=== PATIENT | female | born 1975 | race Caucasian/White ===

== ENCOUNTER 2020-05-12 09:27 | Emergency (ER) | payer OTHER, SELFPAY ==
--- NOTE | ~2020-05-12 | XR_ITS ---
EXAMINATION: XR chest 2V 05/12/2020 10:17 INDICATION: Dry cough for 3 days PROCEDURE: 2 view chest COMPARISON: 11/13/2011 FINDINGS: The lungs are clear. The cardiomediastinal silhouette is within normal limits. There are no pleural effusions. There is no pneumothorax suspected. IMPRESSION: 1: NO ACUTE CARDIOPULMONARY DISEASE. Reviewed, dictated and finalized at location A. ER THREAD [facility]PO[facility]ER
[2020-05-12 09:40] VITALS: BP 134/70; PULSE 69; RESP 20; TEMP 36.4; O2SAT 100
--- NOTE | 2020-05-12 09:58 | ED.GENADULT ---
HPI - General Adult General Chief complaint: Upper Respiratory Infection Stated complaint: sinus infection Source: patient Mode of arrival: ambulatory Limitations: no limitations History of Present Illness HPI narrative: Patient presents for evaluation of upper respiratory symptoms for the last 3 days. She reports sore throat, headache, sinus pressure/drainage, nausea and nonproductive cough. She denies any fever, chills, vomiting. She has a history of IBS and states that she has chronic diarrhea, unchanged. No recent sick contacts. Denies any shortness of breath. She has not tested positive for Covid in the past. She does not smoke. She tried taking Tylenol with some improvement in her symptoms or after. Related Data Home Medications Medication Instructions Recorded Confirmed multivitamin 1 tablet PO DAILY 04/19/19 05/12/20 trazodone 50 mg tablet 50 mg PO .bedtime tablet 01/04/20 05/12/20 buspirone 5 mg tablet 5 mg PO TID tablet 02/08/20 05/12/20 lithium carbonate 300 mg capsule 350 mg PO BID cap 02/08/20 05/12/20 duloxetine 40 mg PO DAILY 05/12/20 05/12/20 hydrocortisone [Proctozone-HC] 2.5 ea TOPICAL BID 05/12/20 05/12/20 Allergies Allergy/AdvReac Type Severity Reaction Status Date / Time No Known Allergies Allergy Verified 05/12/20 09:58 Review of Systems Review of Systems: Narrative: CONSTITUTIONAL: Denies fever, chills, or sweats. EYES: Denies visual changes, redness, or discharge. ENT: Reports sinus congestion and drainage, sore throat CARDIOVASCULAR: Denies chest pain, palpitations, or edema. RESPIRATORY: Reports nonproductive cough. Denies dyspnea. GASTROINTESTINAL: Reports nausea and chronic diarrhea. Denies abdominal pain, vomiting. GENITOURINARY: Denies dysuria or hematuria. SKIN: Denies rash or itching. MUSCULOSKELETAL: Denies back pain, joint pain, or myalgia. NEUROLOGIC: Headache. Denies numbness, dizziness, or weakness. PSYCHIATRIC: Denies anxiety or depression. [facility] Past Medical History Medical History Bipolar disorder Current moderate episode of major depressive disorder without prior episode Generalized anxiety disorder Migraine, unspecified, not intractable, without status migrainosus Normal colonoscopy (~01/2020) Surgical History Surgical History History of abdominoplasty 2012 Family History Family History Mother Depression Family history of heart disease in male family member before age 55 Hypertension Sibling Depression Family history of migraine headaches Father Family history of alcoholism Other Family history of malignant neoplasm of male breast Social History Social History Smoking status: Never smoker Smoking end date: 05/03/03 Alcohol intake: never Exam Narrative: Exam Narrative: GENERAL: Well-appearing, well-nourished, and in no acute distress. HEAD: Normocephalic, atraumatic. EYES: PERRLA and EOMI. ENT: Nares clear, no rhinorrhea or epistaxis. Mucous membranes moist. Oropharynx without tonsillar hypertrophy exudate or other lesions. Bilateral TMs pearly borges nonbulging NECK: Supple. No adenopathy or masses. No carotid bruits or JVD CHEST: Clear to auscultation. No respiratory distress. No wheezes rales or rhonchi HEART: Regular rate and rhythm. No murmur heard. Normal peripheral pulses. ABDOMEN: Soft, nontender, nondistended, normal active bowel sounds. EXTREMITIES: Normal range of motion. No edema. SKIN: Warm, dry, no rash. NEURO: No focal deficits. Alert and oriented x3. PSYCH: Normal mood and affect. Course Course Emergency Course: This is a 44-year-old female who presents with 3-day history of upper respiratory symptoms. Her vital signs are stable upon arrival and she does not appear to have any syste
== END 2020-05-12 10:45 | disposition home or self-care (01) ==
PROVIDERS: Emergency Provider Nurse Practitioner
DX: B34.9 Viral infection, unspecified (principal); Z20.828 Contact with and (suspected) exposure to other viral communicable diseases; F31.9 Bipolar disorder, unspecified
CPT/HCPCS: 71046; 87081; 87426; 87804; 87880; 99213; C9803; G0463

== ENCOUNTER 2020-07-18 13:13 | Outpatient (CLI) | payer OTHER, SELFPAY ==
--- NOTE | ~2020-07-18 | US_ITS ---
EXAMINATION: US pelvic complete w TV EXAM DATE: 07/18/2020 14:03 INDICATION: Abnormal uterine bleeding. TECHNIQUE: Pelvic transabdominal and transvaginal sonogram was performed. There are multiple graysca le and Doppler images available for interpretation. Comparison is made to prior examination from 02/01. FINDINGS: Uterus measures 10.8 x 10.7 x 10.0 cm, with several fibroids measuring up to 7 cm. Dimensi ons have increased compared to previous exam. Endometrial stripe measures 15 mm, upper limits of norm al. There is no free pelvic fluid. Right adnexa: The ovary measures 3.1 x 1.6 x 1.5 cm and is morphologically normal. Ovarian vascular f low confirmed. Left adnexa: The ovary is not identified. There is no adnexal mass. IMPRESSION: Interval increase in size of fibroid uterus compared to 2017. Reviewed, dictated and finalized at location A.
== END 2020-07-18 13:14 | disposition home or self-care (01) ==
LOC: ANHIMG 13:15
PROVIDERS: PCP Family Medicine; Visit Provider Obstetrics & Gynecology
DX: N93.8 Other specified abnormal uterine and vaginal bleeding (principal)
CPT/HCPCS: 76830; 76856

== ENCOUNTER → 2020-08-27 13:39 | Outpatient (CLI) | payer OTHER, SELFPAY ==
--- NOTE | ~2020-08-27 | MM_ITS ---
EXAMINATION: MM screening jordan BI w flavia HISTORY: Screening mammogram TECHNIQUE: Craniocaudal and mediolateral oblique 3-D tomosynthesis images were obtained and synthetic 2-D images were generated. CAD analysis was submitted and interpreted. COMPARISON: 02/25/2018, 06/14/2007 bilateral digital screening mammogram examinations BREAST PARENCHYMAL COMPOSITION: The breasts are extremely dense, which lowers the sensitivity of mamm ography. FINDINGS: Biopsy marker in the subareolar area of the right breast. History of prior benign right fly ast biopsy. Stable fibroglandular asymmetry. Occasional bilateral benign calcifications. At least 4 new closely associated punctate microcalcifications are noted in the posterior central lef t breast on MLO view. Diagnostic left mammogram with magnification views is recommended for further e valuation. Otherwise there is no evidence of suspicious mass, calcification, or architectural distortion to sugg est malignancy in either breast. There has been no suspicious interval change. IMPRESSION: 1. New left microcalcifications 2. Diagnostic left mammogram is recommended BI-RADS Category 0: Incomplete: Needs additional imaging evaluation. Reviewed, dictated and finalized at location A.
== END ==
PROVIDERS: Visit Provider Obstetrics & Gynecology
DX: Z12.31 Encounter for screening mammogram for malignant neoplasm of breast (principal); R92.8 Other abnormal and inconclusive findings on diagnostic imaging of breast
CPT/HCPCS: 77063; 77067

== ENCOUNTER 2020-08-29 08:02 | Outpatient (CLI) | payer OTHER, SELFPAY | END 2020-08-29 08:03 | disposition home or self-care (01) | LOC: ANHSURGERY 08:04 | PROVIDERS: Visit Provider Obstetrics & Gynecology | DX: D64.9 Anemia, unspecified (principal) | CPT/HCPCS: 36415; 86850; 86900; 86901 ==

== ENCOUNTER → 2020-08-30 02:25 | Outpatient (CLI) | payer OTHER, SELFPAY ==
[2020-08-30 19:11] LABS: SARS-CoV-2 RNA PCR Negative
== END ==
PROVIDERS: Visit Provider Obstetrics & Gynecology
DX: Z01.812 Encounter for preprocedural laboratory examination (principal); Z20.822 Contact with and (suspected) exposure to COVID-19
CPT/HCPCS: C9803; U0003; U0005

== ENCOUNTER 2020-09-02 09:19 | Inpatient (IN) | payer OTHER, SELFPAY ==
[2020-08-20 11:04] VITALS: BMI 20.1
--- NOTE | 2020-09-01 12:14 | WPDANESEPP ---
Anes - Eval Pre Procedure Procedure: Operation Date: 09/02/20 07:30 Proposed Procedures p Total Abdominal Hysterectomy - Eliot Tucker MD Date/Time: 09/01/20 12:14 Pre Op Diagnosis: fibroids Patient Data Age: 45 Gender: F Height: 1.65 m Weight: 55 kg Allergies Allergy/AdvReac Type Severity Reaction Status Date / Time No Known Allergies Allergy Verified 08/20/20 11:03 Home Medications Medication Instructions Recorded Confirmed Type multivitamin 1 tablet PO DAILY 04/19/19 08/20/20 History omeprazole 20 mg capsule,delayed 20 mg PO DAILY PRN #30 cap 07/12/19 08/20/20 Rx release trazodone 50 mg tablet 50 mg PO .bedtime tablet 01/04/20 08/20/20 History buspirone 5 mg tablet 5 mg PO TID tablet 02/08/20 08/20/20 History lithium carbonate 300 mg capsule 300 mg PO BID cap 02/08/20 08/20/20 History duloxetine 40 mg PO HS 05/12/20 08/20/20 History fluticasone propionate [Flonase 1 spray INTRANASAL BID #15.8 ml 05/12/20 08/20/20 Rx Allergy Relief] hydrocortisone [Proctozone-HC] 2.5 ea TOPICAL BID PRN 05/12/20 08/20/20 History erythromycin 50 mg PO HS 08/20/20 08/20/20 History [id number] sodium 1 tablet PO DAILY 08/20/20 08/20/20 History [Ferralet 90] Patient hx anesthesia problems: none Family hx anesthesia problems: none PMFSH Past Medical History Medical History Asthma Bipolar disorder Cough Current moderate episode of major depressive disorder without prior episode Generalized anxiety disorder GERD (gastroesophageal reflux disease) Migraine, unspecified, not intractable, without status migrainosus Normal colonoscopy (~01/2020) PTSD (post-traumatic stress disorder) Surgical History Surgical History History of abdominoplasty 2012 Family History Family History Mother Depression Family history of heart disease in male family member before age 55 Hypertension Sibling Depression Family history of migraine headaches Father Family history of alcoholism Other Family history of malignant neoplasm of male breast Social History Social History Smoking packs per day: 1 Smoking cigarettes per day: 20.0 Years smoked: 10 Smoking pack-years: 10.00 Smoking status: Former smoker Tobacco type: cigarettes Smoking end date: 05/03/03 Spiritual care concerns: No Exam Day of Procedure 09/01/20 12:14
--- NOTE | 2020-09-01 17:16 | PM.IMHP ---
H&P: HPI History of Present Illness Date/Time: 09/01/20 17:16 Patient is a 45 y/o multiparous patient that presented to the office with complaints of heavy and abnormal bleeding and pain. Patient reports pain and pressure has increased over the years. Chief Complaint: abnormal bleeding and pain Review of Systems Constitutional: Constitutional: Reports fatigue PMFSH Past Medical History Medical History Asthma Bipolar disorder Cough Current moderate episode of major depressive disorder without prior episode Fibroids Generalized anxiety disorder GERD (gastroesophageal reflux disease) Migraine, unspecified, not intractable, without status migrainosus Normal colonoscopy (~01/2020) PTSD (post-traumatic stress disorder) Surgical History Surgical History (Updated 09/01/20 @ 17:25 by Eliot Tucker MD) History of abdominoplasty 2013 History of suburethral sling procedure Family History Family History Mother Depression Family history of heart disease in male family member before age 55 Hypertension Sibling Depression Family history of migraine headaches Father Family history of alcoholism Other Family history of malignant neoplasm of male breast Social History Social History Smoking packs per day: 1 Smoking cigarettes per day: 20.0 Years smoked: 10 Smoking pack-years: 10.00 Smoking status: Former smoker Tobacco type: cigarettes Smoking end date: 05/03/03 Living arrangements: with family Spiritual care concerns: No Meds Home Medications and Allergies Home Medications Medication Instructions Recorded Confirmed Type multivitamin 1 tablet PO DAILY 04/19/19 08/20/20 History omeprazole 20 mg capsule,delayed 20 mg PO DAILY PRN #30 cap 07/12/19 08/20/20 Rx release trazodone 50 mg tablet 50 mg PO .bedtime tablet 01/04/20 08/20/20 History buspirone 5 mg tablet 5 mg PO TID tablet 02/08/20 08/20/20 History lithium carbonate 300 mg capsule 300 mg PO BID cap 02/08/20 08/20/20 History duloxetine 40 mg PO HS 05/12/20 08/20/20 History fluticasone propionate [Flonase 1 spray INTRANASAL BID #15.8 ml 05/12/20 08/20/20 Rx Allergy Relief] hydrocortisone [Proctozone-HC] 2.5 ea TOPICAL BID PRN 05/12/20 08/20/20 History erythromycin 50 mg PO HS 08/20/20 08/20/20 History [id number] sodium 1 tablet PO DAILY 08/20/20 08/20/20 History [Ferralet 90] Allergies Allergy/AdvReac Type Severity Reaction Status Date / Time No Known Allergies Allergy Verified 08/20/20 11:03 Exam Const: General: cooperative Nutritional Appearance: well nourished Cardio: Rate: regular rate Rhythm: regular rhythm GI: GI Palp: Yes Soft to palpation : External Female Exam: normal external appearance Speculum Exam - Vagina: normal appearance of the vagina Bimanual exam- vagina & uterus: enlarged Bimanual Exam- Adnexa, other: normal adnexae Assessment and Plan Assessment and plan (1) Fibroids: Code(s): D21.9 - Benign neoplasm of connective and other soft tissue, unspecified Status: Acute Assessment and Plan: Patient scheduled for a Total abdominal hysterectomy. Risk and benefits reviewed with patient in detail.
[2020-09-02] VITALS (15 sets, daily range): BP systolic 98–124; BP diastolic 47–80; PULSE 52–89; RESP 10–18; TEMP 36.2–37.2; O2SAT 96–100
[2020-09-02] MEDS: LACTATED RINGERS 1,000 ML 30 ML IV CONT ×2 (06:45→09:33)
[2020-09-02] MEDS: ACETAMINOPHEN 500 MG TABLET 1000 MG PO (06:51)
[2020-09-02] MEDS: KETOROLAC 15 MG/ML VIAL (*BKC) IV PUSH (06:52)
[2020-09-02] MEDS: SCOPOLAMINE 1.5 MG PATCH TRANSDERM (07:16)
--- NOTE | 2020-09-02 07:27 | WPDHPUPDATE1 ---
History and Physical Update Update Date/Time: 09/02/20 07:27 History and Physical has been reviewed, including an updated exam of the patient. There are NO changes in the patient's condition. Risks, benefits, and alternatives have been discussed and questions answered. Patient agrees to proceed with procedure.
[2020-09-02] MEDS: ceFAZolin 2 GM/D5W 50 ML 2 GM/50 ML BAG IVPB (07:32)
--- NOTE | 2020-09-02 09:42 | PM.PROC ---
Procedure Note - Detailed Date of procedure: 09/02/20 Pre-op diagnosis: fibroids Post-op diagnosis: same Procedure performed: ELEUTERIO Description of procedure: The patient was taken to the operating room and placed in the dorsal supine position under general anesthesia. She was prepped and draped in the usual sterile fashion. Pfannenstiel skin incision was made with a scalpel and carried down to the underlying layer of fascia. Fascia was nicked in the midline and extended laterally using Gibbs scissors. [place] was used to tent the fascia which was then dissected off with sharp dissection due to adhesions. The rectus muscles are in the midline and the peritoneum tented. The peritoneum was entered during this process. The incision is extended with blunt traction. The bowel was packed away using moist laparotomy sponges and the Balfor retractor was placed. The bladder blade was attached. The tube is grasped on the cornea with large Peon and and delivered up into the incision. The round ligaments are doubly ligated transected with Gyrus and the anterior leaf of the broad ligament incised meeting in the midline. The tubes are grasped with a [place] on the left side the utero-ovarian ligament is isolated by creating a window in the posterior leaf of the broad ligament. The pedicle is clamped incorporating the tube in the portion being excised. The pedicle was transected and ligated with Gyrus The identical procedure is performed on the other side. The uterine vessels are skeletonized, clamped, transected, and ligated with GYRUS. The cardinal and uterosacral ligaments are serially clamped, transected, and suture ligated with 0 Vicryl. The uterosacral ligaments are tagged for future use. On entering the left portion of the right uterosacral the vaginal cuff is entered. The specimen is amputated using Tiffany scissors. The vaginal cuff is grasped with Nadia clamps. The vaginal cuff was closed using 0 Vicryl in a running locked fashion incorporating each angle to the ipsilateral uterosacral ligaments. The pelvis is irrigated and pedicles are inspected and noted to be hemostatic. The bladder flap examined for hemostasis. The tags are cut out. The lap sponges and retractor are removed. The fascia is closed using 0 Vicryl in a running fashion. Subcutaneous tissues are irrigated and made hemostatic using Bovie cautery. Subcutaneous tissue was approximated with plain gut suture interrupted. Skin is closed using 4 0 Vicryl in a subcuticular fashion and pressure dressing was placed. Patient is awakened from anesthesia and taken to recovery in stable condition. Sponge, needle, and instrument counts are correct per the OR staff. Anesthesia: GETA Surgeon: Eliot Tucker MD Estimated blood loss (mL): 100 Drains: No Packing: No Pathology: yes Complications: None Condition: stable Findings: fibroid uterus
[2020-09-02] MEDS: fentaNYL CITRATE INJ (*CRX) 100 MCG/2 ML VIAL 25 MCG IV PUSH ×3 (09:51→10:10)
[2020-09-02] MEDS: diphenhydrAMINE HCl INJ 50 MG/ML VIAL 25 MG IV PUSH (10:21)
--- NOTE | 2020-09-02 10:36 | SUR.PHASEI ---
1030 sbar faxed floor notified
[2020-09-02] MEDS: DEXTROSE 5%/LACTATED RINGERS 1,000 ML 125 ML IV CONT ×2 (11:50→20:36)
[2020-09-02] MEDS: KETOROLAC 30 MG/ML VIAL (*BKC) IV PUSH ×2 (11:50→20:37)
[2020-09-02] MEDS: ONDANSETRON INJ 4 MG/2 ML VIAL IV PUSH ×2 (11:52→20:33)
[2020-09-02] MEDS: MORPHINE SULFATE (*CRX) 4 MG/ML INJ IV PUSH (12:03)
--- NOTE | 2020-09-02 13:00 | PC.NURSE ---
Dr. Tucker notified of inadequate pain control, orders received to start [employer].
[2020-09-02] MEDS: MORPHINE SULFATE PCA (*CRX) 30 MG/30 ML SYR IV CONT (15:16)
[2020-09-02] MEDS: FLUTICASONE PROPIONATE 0.05% NA SPR 16 GM BTL (*BKC) 1 SPRAY NASAL (22:51)
[2020-09-02] MEDS: traZODone HCL 50 MG TABLET PO (22:52)
[2020-09-02] MEDS: busPIRone HCL 5 MG TABLET PO (22:52)
[2020-09-02] MEDS: diphenhydrAMINE HCl INJ 50 MG/ML VIAL IV PUSH (22:53)
[2020-09-02] MEDS: LITHIUM CARBONATE 300 MG CAPSULE PO (22:53)
[2020-09-03 00:04] VITALS: RESP 14; O2SAT 100
[2020-09-03] MEDS: MORPHINE SULFATE PCA (*CRX) 30 MG/30 ML SYR IV CONT (00:04)
[2020-09-03] MEDS: KETOROLAC 30 MG/ML VIAL (*BKC) IV PUSH ×2 (04:49→11:36)
[2020-09-03] MEDS: ONDANSETRON INJ 4 MG/2 ML VIAL IV PUSH ×2 (04:49→11:36)
[2020-09-03 05:00] VITALS: BP 104/63; PULSE 90; RESP 15; TEMP 38.1; O2SAT 99
[2020-09-03] MEDS: HYDROcodone/acetaminophen (*CRX) 5-325 MG TABLET 1 TAB PO ×4 (05:14→21:15)
[2020-09-03 05:30] LABS: Basophils Percent Auto 0.3 % (0.2-1.2); Eosinophils Percent Auto 0.3 % (0-4.4); Hematocrit 36.9 % (37.0-47.0); Hemoglobin 11.1 g/dL (12.0-15.0); Immature Granulocyte Absolute 0.04 K/mm3 (0.00-0.031); Immature Granulocyte Percent A 0.5 % (0-0.5); Lymphocytes Absolute Auto 0.82 K/mm3 (0.9-3.2); Lymphocytes Percent Auto 10.4 % (18.3-44.2); Mean Corpuscular HGB Conc 30.1 g/dl (32-36); Mean Corpuscular Hemoglobin 30.7 pg (26-34); Mean Corpuscular Volume 101.9 fl (80-100); Mean Platelet Volume 9.7 fl (7.4-10.4); Monocytes Absolute Auto 0.3 K/mm3 (0.1-0.6); Monocytes Percent Auto 3.8 % (2.6-8.5); Neutrophils Absolute Auto 6.7 K/mm3 (1.3-6.7); Neutrophils Percent Auto 84.7 % (45.5-73.1); Platelet Count Result 200 k/mm3 (150-375); Red Blood Count 3.62 M/mm3 (4.2-5.4); Red Cell Distribution Width 12.9 % (11.5-14.5); White Blood Count 7.9 K/mm3 (4.5-10.0)
[2020-09-03 05:48] LABS: Anion Gap 2 mmol/L (8-16); Blood Urea Nitrogen 13 mg/dL (7-17); Calcium 9.4 mg/dL (8.4-10.2); Carbon Dioxide 33 mmol/L (22-30); Chloride 103 mmol/L (98-107); Estimated CRCL calculation 48 ml/min; Estimated Glomerular Filt Rate 49; Glucose 106 mg/dL (65-105); Potassium 3.5 mmol/L (3.4-5.0); Sodium 138 mmol/L (137-145)
--- NOTE | 2020-09-03 07:32 | WPDANESPN ---
Anes - Prog Note Post-Op Date/Time: 09/03/20 07:32 Cardiovascular status: normal Respiratory status: normal Airway patency: baseline Mental status: baseline Post-Op hydration status: normal Vital Signs: Last Vital Signs Temp 38.1 C H 09/03/20 05:00 Pulse 90 09/03/20 05:00 Resp 15 09/03/20 05:00 BP 104/63 09/03/20 05:00 Pulse Ox 99 09/03/20 05:00 Pain Score (VAS): no complaints I/O: Intake & Output 09/02/20 09/02/20 09/03/20 15:59 23:59 07:59 Intake Total 650 1006.9 1328.3 Output Total 80 600 550 Balance 570 406.9 778.3 Laboratory Tests 09/03/20 05:12 09/03/20 05:12 09/03/20 09/03/20 05:12 05:12 WBC 7.9 RBC 3.62 L Hgb 11.1 L Hct 36.9 L MCV 101.9 H MCH 30.7 MCHC 30.1 L RDW 12.9 Plt Count 200 MPV 9.7 Immature Gran % (Auto) 0.5 Neut % (Auto) 84.7 H Lymph % (Auto) 10.4 L [place] % (Auto) 3.8 Eos % (Auto) 0.3 Baso % (Auto) 0.3 Lymph # (Auto) 0.82 L [place] # (Auto) 0.3 Eos # (Auto) 0.0 Baso # (Auto) 0.0 Abs Immat Gran (auto) 0.04 H Absolute Neuts (auto) 6.7 Absolute Nucleated RBC 0.0 Nucleated RBC % 0.0 Sodium 138 Potassium 3.5 Chloride 103 Carbon Dioxide 33 H Anion Gap 2 L BUN 13 Creatinine 1.20 H Estim Creat Clear Calc 48 Estimated GFR 49 L Glucose 106 H Calcium 9.4 Post-procedural complaints: none Patient Feedback: Patient satisfied with anesthetic care.
[2020-09-03 08:00] VITALS: BP 112/61; PULSE 74; RESP 18; TEMP 36.9; O2SAT 100
[2020-09-03] MEDS: SIMETHICONE 80 MG TAB.CHEW PO ×4 (09:07→17:28)
[2020-09-03] MEDS: LITHIUM CARBONATE 300 MG CAPSULE PO ×2 (09:08→17:27)
[2020-09-03] MEDS: busPIRone HCL 5 MG TABLET PO ×2 (09:08→13:30)
[2020-09-03] MEDS: MULTIVITAMINS THERAPEUTIC TAB (*BKC) 1 TABLET PO (09:08)
[2020-09-03] MEDS: PANTOPRAZOLE 40 MG TABLET PO (09:09)
[2020-09-03 16:00] VITALS: BP 110/70; PULSE 70; RESP 18; TEMP 36.7; O2SAT 100
[2020-09-03] MEDS: IBUPROFEN 600 MG TABLET PO (17:27)
[2020-09-03 21:10] VITALS: BP 110/69; PULSE 62; RESP 16; TEMP 36.7
[2020-09-03] MEDS: traZODone HCL 50 MG TABLET PO (21:15)
[2020-09-03] MEDS: SENNA/DOCUSATE SODIUM TABLET 2 TAB PO (21:15)
[2020-09-03] MEDS: FLUTICASONE PROPIONATE 0.05% NA SPR 16 GM BTL (*BKC) 1 SPRAY NASAL (21:15)
[2020-09-04] MEDS: IBUPROFEN 600 MG TABLET PO (01:30)
[2020-09-04] MEDS: HYDROcodone/acetaminophen (*CRX) 5-325 MG TABLET 1 TAB PO ×2 (01:30→06:22)
[2020-09-04 06:30] VITALS: BP 102/57; PULSE 57; RESP 18; TEMP 36.6
[2020-09-04] MEDS: LITHIUM CARBONATE 300 MG CAPSULE PO (08:03)
[2020-09-04] MEDS: busPIRone HCL 5 MG TABLET PO (08:03)
[2020-09-04] MEDS: MULTIVITAMINS THERAPEUTIC TAB (*BKC) 1 TABLET PO (08:03)
[2020-09-04] MEDS: FLUTICASONE PROPIONATE 0.05% NA SPR 16 GM BTL (*BKC) 1 SPRAY NASAL (08:03)
--- NOTE | 2020-09-09 08:30 | PM.DS ---
DS: Admitting Diagnosis Admitting Diagnosis Admitting Diagnosis: fibroids, pelvic pain DS: Discharge Diagnosis Discharge Diagnosis (1) Fibroids: Code(s): D21.9 - Benign neoplasm of connective and other soft tissue, unspecified Status: Acute Assessment and Plan: s/p ELEUTERIO (2) Pelvic pain: Code(s): R10.2 - Pelvic and perineal pain Status: Acute DS: Summary Hospital Course Hospital Course: Patient is a 45 y/o multiparous patient that presented to the office with complaints of heavy and abnormal bleeding and pain. Patient reports pain and pressure has increased over the years. Patient underwent a ELEUTERIO without complications was discharged home on postoperative day 2 with follow up in 1 week from surgery. Patient recieved script for [place] 5/325 one pill every 4 hours as needed for pain. Chief Complaint: fibroids and pain Time Spent with Patient Time attestation: Total time spent providing and/or coordinating discharge services: Exam Narrative: Exam Narrative: inc c/d/i adbomen soft NT DS: Data Data Completed and Pending Completed studies during hospitalization: Pending at discharge 09/02/20 09:02 Surgical [PTH] Routine Discharge Plan Discharge Attending physician on discharge: Eliot Tucker Discharging Clinician: Eliot Tucker Patient Disposition: Home, Self-Care Activity: may shower, may drive after 2 weeks and pelvic rest Diet: regular Patient Instructions: Hysterectomy (DC) Stand Alone Forms: General Discharge Information Follow-up/Referrals: Eliot Tucker MD [Physician] - Call for Appointment Discharge Medications: New hydrocodone-acetaminophen 5-325 mg Tablet 1 tablet PO Q3H PRN (Reason: Pain Rated 5 Or Less) Qty: 30 RF: 0 Continued hydrocortisone [Proctozone-HC] 2.5 % cream with perineal applicator 2.5 ea topical BID PRN (Reason: Pain) RF: 0 duloxetine 40 mg Capsule,Delayed Release(Dr/Ec) 40 mg PO HS RF: 0 fluticasone propionate [Flonase Allergy Relief] 50 mcg/actuation spray,suspension 1 spray intranasal BID Qty: 15.8 RF: 0 omeprazole 20 mg capsule,delayed release(DR/EC) 20 mg PO DAILY PRN (Reason: gerd) Qty: 30 RF: 0 trazodone 50 mg tablet 50 mg PO .bedtime RF: 0 buspirone 5 mg tablet 5 mg PO TID RF: 0 lithium carbonate 300 mg capsule 300 mg PO BID RF: 0 multivitamin Tablet 1 tablet PO DAILY RF: 0 [id number] sodium [id number] ik-gh-[id number]-mg-mg Tablet 1 tablet PO DAILY RF: 0 erythromycin 250 mg Tablet 50 mg PO HS RF: 0 Date of admission: 09/02/20 09:19 Primary Care Provider: UNKNOWN,DOCTOR Admitting Provider: Eliot Tucker Attending physician on admission: Eliot Tucker Condition: Stable
== END 2020-09-04 09:10 | disposition home or self-care (01) | DRG 743 ==
LOC: ANHOB2 10:53
PROVIDERS: Admitting Provider Obstetrics & Gynecology; Visit Provider Obstetrics & Gynecology
PROC: 0UT94ZZ Resection of Uterus, Percutaneous Endoscopic Approach (ICD-10-PCS; principal; 2020-09-02 07:30)
DX: D25.9 Leiomyoma of uterus, unspecified (principal); N93.9 Abnormal uterine and vaginal bleeding, unspecified; Z87.891 Personal history of nicotine dependence
CPT/HCPCS: 36415; 80048; 85025; 88307; A9270; J0690; J1100; J1170; J1200; J1885; J2250; J2270; J2405; J2704; J2710; J3010; J7120; J7121

== ENCOUNTER 2020-09-27 12:32 | Outpatient (CLI) | payer OTHER, SELFPAY ==
--- NOTE | ~2020-09-27 | MM_ITS ---
EXAMINATION: MM diagnostic mammo unilat LT HISTORY: Microcalcifications on screening mammogram of 08/20 TECHNIQUE: Additional 3-D tomosynthesis images of the left breast were performed and synthetic 2-D im ages were generated. Magnification views. CAD analysis was submitted and interpreted. COMPARISON: 08/27/2020 bilateral digital screening mammogram FINDINGS: Occasional benign microcalcifications are noted. No suspicious calcifications are evident. IMPRESSION: 1. No mammographic evidence of malignancy 2. Routine annual mammographic screening is recommended BI-RADS Category 2: Benign finding(s). Reviewed, dictated and finalized at location A.
== END 2020-09-27 12:33 | disposition home or self-care (01) ==
LOC: ANHIMG 12:33
PROVIDERS: PCP Family Medicine; Visit Provider Obstetrics & Gynecology
DX: R92.8 Other abnormal and inconclusive findings on diagnostic imaging of breast (principal)
CPT/HCPCS: 77065

== ENCOUNTER → 2020-11-18 08:37 | Outpatient (CLI) | payer OTHER, SELFPAY ==
--- NOTE | ~2020-11-18 | CT_ITS ---
EXAMINATION: CT soft tissue neck w con EXAM DATE: 11/18/2020 09:01 INDICATION: E04.9 - Nontoxic goiter, unspecified . Enlarged parotid glands. TECHNIQUE: Spiral CT of the neck was performed following intravenous injection of 75 mL Omnipaque 350 . Axial, coronal and sagittal images were reviewed. The dose-length product (DLP) for this examinat ion was 328.19 mGy-cm. The exposure was tailored according to patient size (auto mA exposure control ), and iterative reconstruction (ASIR) was used as additional dose reduction technique. There is no prior study for comparison. FINDINGS: The thyroid gland is unremarkable. The submandibular and parotid glands are symmetric. There is no cervical lymphadenopathy. There are no masses identified. The superior mediastinum is unremarkable. The airway is unremarkable. Parapharyngeal and pre-glottic fat planes are preserve d. The opacified vasculature is patent. The orbits are unremarkable. Visualized sinuses and mas toid air cells are well aerated. Lung apices are clear. There is mild cervical facet arthropathy. IMPRESSION: Unremarkable CT soft tissue neck w con exam. Reviewed, dictated and finalized at location A.
== END ==
PROVIDERS: PCP Family Medicine; Visit Provider Nurse Practitioner
DX: E04.9 Nontoxic goiter, unspecified (principal)
CPT/HCPCS: 70491; Q9967

== ENCOUNTER 2020-11-24 08:47 | Emergency (ER) | payer OTHER, SELFPAY ==
[2020-11-24 08:52] VITALS: PULSE 86; RESP 20; TEMP 36.7; O2SAT 100
--- NOTE | 2020-11-24 08:56 | ED.EYEPROB ---
HPI - Eye Problem General Chief complaint: Eye Problems Stated complaint: poss pink eye Time Seen by Provider: 11/24/20 09:09 Source: patient History of Present Illness HPI Narrative: Patient presents with itching and matting to both eyes. No vision problems. Patient states her child had pinkeye last week and now she thinks she has contacted kieshae from her child. Related Data Home Medications Medication Instructions Recorded Confirmed lithium carbonate 300 mg capsule 300 mg PO BID cap 02/08/20 11/24/20 buspirone 5 mg tablet 7.5 mg PO TID tablet 11/21/20 11/24/20 duloxetine 40 mg capsule,delayed 60 mg PO HS cap 11/21/20 11/24/20 release levothyroxine 25 mcg PO DAILY 11/24/20 11/24/20 Allergies Allergy/AdvReac Type Severity Reaction Status Date / Time No Known Allergies Allergy Verified 11/24/20 09:01 Review of Systems Review of Systems: Narrative: CONSTITUTIONAL: Denies fever, chills, or sweats. EYES: Denies visual changes, redness, or discharge. ENT: Denies rhinorrhea, congestion, sore throat, or otalgia. CARDIOVASCULAR: Denies chest pain, palpitations, or edema. RESPIRATORY: Denies cough or dyspnea. GASTROINTESTINAL: Denies abdominal pain, nausea, vomiting, or diarrhea. GENITOURINARY: Denies dysuria or hematuria. SKIN: Denies rash or itching. MUSCULOSKELETAL: Denies back pain, joint pain, or myalgia. NEUROLOGIC: Denies headache, numbness, or weakness. PSYCHIATRIC: Denies anxiety or depression. [facility] Past Medical History Medical History (Updated 11/24/20 @ 09:05 by AMAN Mason) Asthma Bipolar disorder Cough Current moderate episode of major depressive disorder without prior episode Fibroids Generalized anxiety disorder GERD (gastroesophageal reflux disease) Migraine, unspecified, not intractable, without status migrainosus Normal colonoscopy (~01/2020) Pelvic pain PTSD (post-traumatic stress disorder) Surgical History Surgical History (Updated 11/21/20 @ 22:22 by Hannah Ulloa NP) H/O: hysterectomy (~09/02/20) History of abdominoplasty 2013 History of bunionectomy of right great toe (~10/2020) History of suburethral sling procedure Family History Family History Mother Depression Family history of heart disease in male family member before age 55 Hypertension Sibling Depression Family history of migraine headaches Father Family history of alcoholism Other Family history of malignant neoplasm of male breast Social History Social History Smoking packs per day: 1 Smoking cigarettes per day: 20.0 Years smoked: 10 Smoking pack-years: 10.00 Smoking status: Never smoker Tobacco type: cigarettes Smoking end date: 05/03/03 Spiritual care concerns: No Comments At time of signature, agree with nursing past medical, surgical, social and family history. There is no relevant family history pertinent to the presenting complaint Exam Narrative: Exam Narrative: GENERAL: Well-appearing, well-nourished, and in no acute distress. HEAD: Normocephalic, atraumatic. EYES: PERRLA and EOMI. ENT: Nares clear, no rhinorrhea or epistaxis. Mucous membranes moist. NECK: Supple. CHEST: Clear to auscultation. No respiratory distress. HEART: Regular rate and rhythm. No murmur heard. Normal peripheral pulses. ABDOMEN: Soft, nontender, nondistended, normal active bowel sounds. EXTREMITIES: Normal range of motion. No edema. SKIN: Warm, dry, no rash. NEURO: No focal deficits. Alert and oriented x3. [place] Coma Scale Eye Opening: Spontaneous 4 [place] Coma Scale Motor: Obeys Commands 6 [place] Coma Scale Verbal: Oriented 5 [place] Coma Scale Total 15 Eyes: Conjunctivae: conjunctivae normal (Conjunctivitis bilaterally) Course Vital Signs Vital signs: Please NITA schedule a followup visit with your personal physician for further evaluation and treatment. Including rechec
== END 2020-11-24 09:09 | disposition home or self-care (01) ==
PROVIDERS: Emergency Provider Nurse Practitioner Family
DX: H10.9 Unspecified conjunctivitis (principal); Z87.891 Personal history of nicotine dependence; J45.909 Unspecified asthma, uncomplicated; K21.9 Gastro-esophageal reflux disease without esophagitis; F31.9 Bipolar disorder, unspecified
CPT/HCPCS: 99213; G0463

== ENCOUNTER → 2020-12-13 13:26 | Outpatient (CLI) | payer OTHER, SELFPAY ==
--- NOTE | ~2020-12-13 | CT_ITS ---
EXAMINATION: CT sinus wo con DATE: 12/13/2020 13:39 INDICATION: Acute recurrent pansinusitis TECHNIQUE: Computed tomography (CT) of the paranasal sinuses was performed without contrast. Iterativ e reconstruction technique was employed. Exam dose: 280.01 mGy-cm total exam DLP. COMPARISON: 03/22/2018 CT sinuses FINDINGS: Prominent rightward deviation of nasal septum. Bilateral intralamellar cell of middle nasal turbinates, particularly prominent on the left. The ostiomeatal units are patent. The paranasal sinuses are normally developed and aerated. The mastoid air cells are normally developed and aerated bilaterally. IMPRESSION: Prominent rightward deviation of nasal septum Bilateral intralamellar cell of middle nasal turbinates, especially prominent on the left Patent paranasal sinuses, ostiomeatal units and mastoid air cells Reviewed, dictated and finalized at [facility]. Reviewed, dictated and finalized at [facility]. IMPRESSION: Prominent rightward deviation of nasal septum Bilateral intralamellar cell of middle nasal turbinates, especially prominent o n the left Patent paranasal sinuses, ostiomeatal units and mastoid air cells
== END ==
PROVIDERS: Visit Provider Otolaryngology
DX: J01.41 Acute recurrent pansinusitis (principal); J34.2 Deviated nasal septum; R93.0 Abnormal findings on diagnostic imaging of skull and head, not elsewhere classified
CPT/HCPCS: 70486

== ENCOUNTER 2021-03-11 07:57 | Outpatient (CLI) | payer OTHER, SELFPAY ==
--- NOTE | 2021-03-30 20:31 | WPDHOMESLEEP ---
Sleep Study - Home Unattended Date of Study: 03/11/21 <Halina Casper DO - Last Filed: 03/30/21 20:47> Ordering Provider: Hannah Ulloa NP <Halina Casper DO - Last Filed: 03/30/21 20:47> Interpreting Provider: Halina Casper DO <Halina Casper DO - Last Filed: 03/30/21 20:47> Home Sleep Study Type: Apnea Link Air <Halina Casper DO - Last Filed: 03/30/21 20:47> Height: 1.65 m <Halina Casper DO - Last Filed: 03/30/21 20:47> Weight: 63.503 kg <Halina Casper DO - Last Filed: 03/30/21 20:47> Body Mass Index: 23.3 <Halina Casper DO - Last Filed: 03/30/21 20:47> Neck Circumference (inches): 12.5 <Halina Casper DO - Last Filed: 03/30/21 20:47> [place]: 19 <Halina Casper DO - Last Filed: 03/30/21 20:47> Reason for Sleep Study Unrefreshing sleep, daytime hypersomnia <Halina Casper DO - Last Filed: 03/30/21 20:47> Sleep History The patient is a 45-year-old female is with bipolar disorder, depression, anxiety, hypothyroidism and overactive bladder that had a home sleep test ordered by her physician due to unrefreshing sleep and daytime sleepiness. The patient frequently awakens from sleep short of breath. She occasionally awakens at night with heartburn, belching or cough. She rarely snores and is never loud enough that others complain. She constantly has trouble sleeping when she has a cold. She rarely wakes up gasping for air throughout the night. She rarely has breathing problems at night observed by others. She constantly sweats excessively at night. She occasionally notices heart palpitations or irregular heartbeats during the night. She frequently falls asleep during the day and occasionally falls asleep while driving. She denies cataplexy. She is constantly having trouble at work or school due to sleepiness. She rarely feels unable to move 1 waking up or falling asleep. She frequently experiences vivid dream like scenes upon awakening or falling asleep. She constantly feels afraid of going to sleep. She occasionally has thoughts racing through her mind. She occasionally feels sad or depressed. She frequently feels anxious. She constantly has muscular tension. She frequently notices parts of her body jerk. She rarely kicks during the night. She occasionally experiences crawling and aching feelings in her legs as well as leg pain during the night. She frequently grinds her teeth during sleep and constantly awakens with jaw pain in the morning. She is constantly bothered by pain during the day and frequently awakened by pain during the night. She constantly wakes up feeling stiff in the morning with sore and achy muscles. She goes to bed at 10:30 p.m. on both weekdays and weekends. She can fall asleep fairly quickly. She wakes up at least 5 times per night. When she awakens, she will use the restroom. It takes her 10-60 minutes to fall back asleep. She wakes up at 8:00 a.m. on both weekdays and weekends. She typically gets 5-8 hours of sleep per night. She will stay in bed between 15 and 60 minutes after waking up in the morning. She currently lives with her spouse and 5 children. She does not consume any caffeinated beverages within 2 hours of bedtime. She does not engage in physical exercise before bedtime. She will watch television before falling asleep. She does not take naps in the afternoon or the evening. She is a former smoker. She will consume at least 500 mg of caffeine per day. She denies alcohol and recreational drug use. <Halina Casper DO - Last Filed: 03/30/21 20:47> [facility] Past Medical History Medical History: Medical History Asthma Bipolar disorder Chronic fatigue Cough Current moderate episode of major depressive disorder without prior episode Fibroids Generalized anxiety disorder GERD (gastroeso
[2021-03-30 20:47] VITALS: BMI 23.3
== END 2021-03-12 10:45 | disposition home or self-care (01) ==
LOC: ANHCSM 07:58
PROVIDERS: PCP Nurse Practitioner Family; Visit Provider Nurse Practitioner Family
DX: G47.10 Hypersomnia, unspecified (principal); G47.9 Sleep disorder, unspecified
CPT/HCPCS: 95806

== ENCOUNTER 2021-04-25 09:49 | Emergency (ER) | payer OTHER, SELFPAY ==
--- NOTE | ~2021-04-25 | XR_ITS ---
XR foot RT min 3V DATE: 04/25/2021 10:33 INDICATION: Lateral malleolus pain since running 2 weeks ago TECHNIQUE: 4 views COMPARISON: None FINDINGS: Status post bunionectomy and screw bridging the subtalar joint. There is lucency around the screw which may indicate loosening, less likely infection. Plantar calcaneal enthesopathy. No recent fracture or dislocation, periosteal reaction or bone destruction. IMPRESSION: Screw bridging subtalar joint with lucency around the shaft of the screw; this may indica te loosening, less likely infection Status post bunionectomy Plantar calcaneal enthesopathy Reviewed, dictated and finalized at [facility] [employer] IMPRESSION: Screw bridging subtalar joint with lucency around the shaft of the screw; this may indicate loosening, less likely infection Status post bunionectomy Plantar calcaneal enthesopathy
[2021-04-25 10:08] VITALS: BP 129/78; PULSE 85; RESP 16; TEMP 36.8; O2SAT 100
--- NOTE | 2021-04-25 10:58 | ED.LOWEXIN ---
HPI - Extremity Injury (Lower) General Chief Complaint: Extremity Injury, Lower Stated Complaint: Right Foot Injury Time Seen by Provider: 04/25/21 10:35 History of Present Illness HPI Narrative: 45-year-old female who presents to [facility] with complaints of pain to right posterior forefoot anterior to lateral malleolus with swelling for the past 2 weeks after going for a run. Patient states she has had previous surgery to the foot for stability issues of her feet with what she referred as stents put in ankles. Patient has slow limping gait with pain to right foot which increases with activity. Patient states that she has been taking Ibuprofen with minimal pain decrease voiced. MD complaint: foot injury Onset (ago): week(s) (2) Injury: Right: foot Related Data Home Medications Medication Instructions Recorded Confirmed lithium carbonate 300 mg capsule 300 mg PO BID cap 02/08/20 04/25/21 duloxetine 40 mg capsule,delayed 60 mg PO HS cap 11/21/20 04/25/21 release levothyroxine 25 mcg PO DAILY 11/24/20 04/25/21 trazodone 50 mg tablet 50 mg PO QHS 12/20/20 04/25/21 cariprazine [Vraylar] 1.5 mg PO DAILY 04/25/21 04/25/21 rifaximin 550 mg PO TID 04/25/21 04/25/21 Allergies Allergy/AdvReac Type Severity Reaction Status Date / Time No Known Allergies Allergy Verified 04/25/21 10:20 Review of Systems Review of Systems: CONSTITUTIONAL: Denies fever, chills, or sweats. EYES: Denies visual changes, redness, or discharge. ENT: Denies rhinorrhea, congestion, sore throat, or otalgia. CARDIOVASCULAR: Denies chest pain, palpitations, or edema. RESPIRATORY: Denies cough or dyspnea. GASTROINTESTINAL: Denies abdominal pain, nausea, vomiting, or diarrhea. GENITOURINARY: Denies dysuria or hematuria. SKIN: Denies rash or itching. MUSCULOSKELETAL: Denies back pain, positive for pain to her posterior aspect of dorsal forefoot, or myalgia. Patient states that her pain is 8/10 and is shooting pain. NEUROLOGIC: Denies headache, numbness, or weakness. PSYCHIATRIC: Denies anxiety or depression. All systems reviewed & are unremarkable except as noted in HPI and below PMFSH Past Medical History Medical History Asthma Bipolar disorder Chronic fatigue Cough Current moderate episode of major depressive disorder without prior episode Fibroids Generalized anxiety disorder GERD (gastroesophageal reflux disease) Migraine, unspecified, not intractable, without status migrainosus Normal colonoscopy (~01/2020) Pelvic pain PTSD (post-traumatic stress disorder) Surgical History Surgical History H/O: hysterectomy (~09/02/20) History of abdominoplasty 2013 History of bunionectomy of right great toe (~10/2020) History of suburethral sling procedure Family History Family History Mother Depression Family history of heart disease in male family member before age 55 Hypertension Sibling Depression Family history of migraine headaches Father Family history of alcoholism Other Family history of malignant neoplasm of male breast Social History Social History Smoking packs per day: 1 Smoking cigarettes per day: 20.0 Years smoked: 10 Smoking pack-years: 10.00 Smoking status: Never smoker Tobacco type: cigarettes Smoking end date: 05/03/03 Spiritual care concerns: No Comments At time of signature, agree with nursing past medical, surgical, social and family history. There is no relevant family history pertinent to the presenting complaint Exam Narrative: GENERAL: Well-appearing, well-nourished, and in no acute distress. HEAD: Normocephalic, atraumatic. EYES: PERRLA and EOMI. ENT: Nares clear, no rhinorrhea or epistaxis. Mucous membranes moist. NECK: Supple. no lymphadenopathy CHEST: Clear
== END 2021-04-25 11:30 | disposition home or self-care (01) ==
PROVIDERS: Emergency Provider Registered Nurse; PCP Family Medicine
DX: M79.671 Pain in right foot (principal); Z87.891 Personal history of nicotine dependence; J45.909 Unspecified asthma, uncomplicated; K21.9 Gastro-esophageal reflux disease without esophagitis; F31.9 Bipolar disorder, unspecified; F41.1 Generalized anxiety disorder
CPT/HCPCS: 73630; 99213; G0463

== ENCOUNTER → 2021-06-27 14:49 | Outpatient (CLI) | payer OTHER, SELFPAY ==
--- NOTE | ~2021-06-27 | US_ITS ---
EXAMINATION: US thyroid EXAM DATE: 06/27/2021 15:54 INDICATION: Goiter . TECHNIQUE: Multiple grayscale and Doppler images of the thyroid were obtained (by a technologist who performed the scan) and subsequently reviewed. Individual nodules and recommendations may be reporte d in accordance with TI-RADS system as designated by the 2017 ACR White Paper TI-RADS committee. The re is no prior study for comparison. FINDINGS: The right thyroid lobe measures 3.1 x 1.2 x 1.2 cm, the left measuring 3.3 x 0.9 x 1.2 cm. Mildly het erogeneous thyroid echogenicity. A focal region was measured which could be a focal nodule measuring 1.6 x 1.0 x 0.7, solid (2 points), hyperechoic (1 point), wider than tall, smooth well defined margin , without echogenic foci, category TR3 for this nodule. IMPRESSION: Possible right thyroid lobe category TR 3 nodule; consider one-year follow-up. Reviewed, dictated and finalized at [facility]. [employer]
== END ==
PROVIDERS: Visit Provider Internal Medicine Endocrinology, Diabetes & Metabolism
DX: E04.9 Nontoxic goiter, unspecified (principal)
CPT/HCPCS: 76536

== ENCOUNTER 2021-07-02 14:04 | Emergency (ER) | payer OTHER, SELFPAY ==
[2021-07-02 14:10] VITALS: BP 126/73; PULSE 95; RESP 16; TEMP 37.7; O2SAT 100
[2021-07-02 14:18] VITALS: BP 126/73; PULSE 95; RESP 16; TEMP 37.7; O2SAT 100
--- NOTE | 2021-07-02 14:21 | ED.URI ---
HPI - URI/Sore Throat General Chief Complaint: Upper Respiratory Infection Stated Complaint: Sinus Pain Time Seen by Provider: 07/02/21 14:18 Source: patient and RN notes reviewed Mode of arrival: ambulatory Limitations: no limitations History of Present Illness HPI Narrative: 45-year-old female presents with concern for headache, sinus pain and pressure. Reports symptoms started 3 days ago. She denies cough. She reports occasional feeling of shortness of breath. Reports chills, sweats, body aches. She has not taken her temperature. She denies sore throat. Denies nausea, vomiting, diarrhea. Reports she took Tylenol. Denies other [id number] intervention. Reports being around someone with a cold, denies other known sick contacts. MD elicited complaint: nasal congestion Related Data Home Medications Medication Instructions Recorded Confirmed buspirone 10 mg PO TID 07/02/21 07/02/21 cyclobenzaprine 10 mg PO DAILY 07/02/21 07/02/21 dicyclomine mg 07/02/21 duloxetine mg PO 07/02/21 lithium carbonate 300 mg PO DAILY 07/02/21 07/02/21 lubiprostone [Amitiza] 8 mcg PO BID 07/02/21 07/02/21 omeprazole 20 mg PO DAILY PRN 07/02/21 07/02/21 sertraline 50 mg PO DAILY 07/02/21 07/02/21 solifenacin 5 mg PO DAILY 07/02/21 07/02/21 trazodone 07/02/21 ubrogepant [Ubrelvy] 100 mg PO DIRECTED PRN 07/02/21 07/02/21 Allergies Allergy/AdvReac Type Severity Reaction Status Date / Time No Known Allergies Allergy Verified 07/02/21 14:09 Review of Systems Review of Systems: CONSTITUTIONAL: Reports malaise, chills, sweats EYES: Denies visual changes, redness, or discharge. ENT: Reports rhinorrhea, congestion, sinus pain. Denies otalgia and sore throat. CARDIOVASCULAR: Denies chest pain, palpitations, or edema. RESPIRATORY: Denies cough. Denies dyspnea. GASTROINTESTINAL: Denies abdominal pain, nausea, vomiting, diarrhea SKIN: Denies rash or itching. MUSCULOSKELETAL: Denies myalgia. NEUROLOGIC: Reports headache. All systems reviewed & are unremarkable except as noted in HPI and below PMFSH Past Medical History Medical History Asthma Bipolar disorder Chronic fatigue Cough Current moderate episode of major depressive disorder without prior episode Fibroids Generalized anxiety disorder GERD (gastroesophageal reflux disease) Migraine, unspecified, not intractable, without status migrainosus Normal colonoscopy (~01/2020) Pelvic pain PTSD (post-traumatic stress disorder) Surgical History Surgical History H/O: hysterectomy (~09/02/20) History of abdominoplasty 2013 History of bunionectomy of right great toe (~10/2020) History of suburethral sling procedure Family History Family History Mother Depression Family history of heart disease in male family member before age 55 Hypertension Sibling Depression Family history of migraine headaches Father Family history of alcoholism Other Family history of malignant neoplasm of male breast Social History Social History Smoking packs per day: 1 Smoking cigarettes per day: 20.0 Years smoked: 10 Smoking pack-years: 10.00 Smoking status: Never smoker Tobacco type: cigarettes Smoking end date: 05/03/03 Spiritual care concerns: No Comments At time of signature, agree with nursing past medical, surgical, social and family history. There is no relevant family history pertinent to the presenting complaint Exam Narrative: GENERAL: Nontoxic-appearing, well-nourished, and in no acute distress. HEAD: Normocephalic EYES: PERRLA, conjunctivae clear ENT: Nares clear, clear discharge. Mucous membranes moist. TM pearly borges with dull light reflex bilaterally; no tragal tenderness. Oropharynx not erythematous without lesions. Tonsils not
== END 2021-07-02 14:50 | disposition home or self-care (01) ==
PROVIDERS: Emergency Provider Nurse Practitioner
DX: J06.9 Acute upper respiratory infection, unspecified (principal); Z20.822 Contact with and (suspected) exposure to COVID-19; F17.210 Nicotine dependence, cigarettes, uncomplicated; J45.909 Unspecified asthma, uncomplicated; K21.9 Gastro-esophageal reflux disease without esophagitis; F41.9 Anxiety disorder, unspecified; F31.9 Bipolar disorder, unspecified
CPT/HCPCS: 87081; 87426; 87880; 99213; C9803; G0463

== ENCOUNTER → 2021-10-24 14:30 | Outpatient (CLI) | payer OTHER, SELFPAY ==
--- NOTE | ~2021-10-24 | US_ITS ---
EXAMINATION: US thyroid DATE: 10/24/2021 14:55 INDICATION: Thyroid nodule. TECHNIQUE: Multiple ultrasound images of the thyroid were obtained. COMPARISON: Ultrasound thyroid 06/27/2021 FINDINGS: The right thyroid lobe measures 2.6 x 0.9 x 1.0 cm. The left thyroid lobe measures 3.0 x 1.1 x 1.2 c m. In the right thyroid lobe, there is a 1.1 cm solid, isoechoic, wider than tall nodule with ill-de fined margin without echogenic foci (TI-RADS TR3). IMPRESSION: 1. Right thyroid nodule, likely not clinically significant. No follow-up is needed. Reviewed, dictated and finalized at [facility]. IMPRESSION: 1. Right thyroid nodule, likely not clinically significant. No follow-up is nee ded.
== END ==
PROVIDERS: PCP Family Medicine; Visit Provider Internal Medicine Endocrinology, Diabetes & Metabolism
DX: E04.1 Nontoxic single thyroid nodule (principal)
CPT/HCPCS: 76536

== ENCOUNTER 2021-12-12 15:54 | Outpatient (CLI) | payer OTHER, SELFPAY ==
--- NOTE | ~2021-12-12 | US_ITS ---
US thyroid INDICATION: Thyroid nodules TECHNIQUE: Real-time sonographic images of the thyroid gland were obtained. COMPARISON: Ultrasound dated 10/24/2021 FINDINGS: The right thyroid lobe measures 3.1 x 1 x 1.1 cm. The left thyroid lobe measures 3.4 x 1.9 x 1.2 cm. There is normal echotexture and echogenicity throughout the thyroid gland. There are small nodules in the right thyroid gland, largest measuring 5 x 5 x 4 mm which is solid, hypoechoic, talle r than wide with irregular margins and no echogenic foci, TR 5. Recommend follow-up ultrasound in 12 months. No discrete masses are identified in the left lobe. Normal vascular flow is present. IMPRESSION: 1. Right thyroid mass measuring 5 mm, thyroid classification TR 5. This does not meet sonographic cr iteria for biopsy. Follow-up ultrasound in 12 months recommended. Reviewed, dictated and finalized at [facility]. IMPRESSION: 1. Right thyroid mass measuring 5 mm, thyroid classification TR 5. This does n ot meet sonographic criteria for biopsy. Follow-up ultrasound in 12 months gustavo mmended.
== END 2021-12-12 15:55 | disposition home or self-care (01) ==
PROVIDERS: PCP Family Medicine; Visit Provider Internal Medicine Endocrinology, Diabetes & Metabolism
DX: E04.1 Nontoxic single thyroid nodule (principal)
CPT/HCPCS: 76536

== ENCOUNTER → 2021-12-13 08:29 | Outpatient (CLI) | payer OTHER, SELFPAY ==
--- NOTE | ~2021-12-13 | MR_ITS ---
EXAMINATION: MR cervical spine wo con DATE: 12/13/2021 09:04 INDICATION: Neck pain. TECHNIQUE: Magnetic resonance imaging (MRI) of the cervical spine was performed without intravenous c ontrast. Sequences included sagittal T2-weighted FSE, sagittal T2-weighted FS FSE, sagittal T1-weight ed FSE, axial MERGE, and axial T2-weighted FSE. COMPARISON: None FINDINGS: There is 3 degrees dextrocurvature of cervical spine. Vertebral body heights and interverte bral disc heights are normal. The spinal cord signal intensity is normal. The following disc levels a re specifically discussed: C2-C3: The disc does not extend beyond the endplate margin. There is no uncovertebral joint osteoarth ritis. There is mild bilateral facet joint osteoarthritis. There is no neural foraminal stenosis. The re is no central canal stenosis. C3-C4: There is a central protrusion. There is no uncovertebral joint osteoarthritis. There is modera te left facet joint osteoarthritis. There is no neural foraminal stenosis. There is no central canal stenosis. C4-C5: There is a central extrusion. There is mild bilateral uncovertebral joint osteoarthritis. Ther e is mild bilateral facet joint osteoarthritis. There is no neural foraminal stenosis. There is no ce ntral canal stenosis. C5-C6: There is a central protrusion. There is mild bilateral uncovertebral joint osteoarthritis. The re is no facet joint osteoarthritis. There is mild left neural foraminal stenosis. There is mild cent ral canal stenosis. C6-C7: There is a central extrusion. There is mild bilateral uncovertebral joint osteoarthritis. Ther e is no facet joint osteoarthritis. There is no neural foraminal stenosis. There is no central canal stenosis. C7-T1: The disc does not extend beyond the endplate margin. There is no uncovertebral joint osteoarth ritis. There is mild bilateral facet joint osteoarthritis. There is no neural foraminal stenosis. The re is no central canal stenosis. IMPRESSION: 1. Mild cervical spondylosis. Reviewed, dictated and finalized at [facility].
== END ==
PROVIDERS: PCP Family Medicine; Visit Provider Nurse Practitioner Family
DX: M47.892 Other spondylosis, cervical region (principal)
CPT/HCPCS: 72141

== ENCOUNTER 2022-02-18 15:57 | Outpatient (CLI) | payer OTHER, SELFPAY ==
--- NOTE | ~2022-02-18 | DEXA_ITS ---
Bone Density Report Name: LESLY PAYNE Age: 46 Sex: Female Ethnicity: White Date of : 1975 Indication: hyperparathyroidism; hysterectomy; Referring Provider: SERGEY, JACQUELYN Dominique Study: Bone densitometry was performed. Exam Date: February 18, 2022 Accession number: [id number] Bone Density: Region BMD T-score Z-score Classification AP Spine(L1-L4) 0.911 -1.2 -0.8 Osteopenia Femoral Neck (Left) 0.756 -0.8 -0.4 Normal Total Hip (Left) 0.844 -0.8 -0.5 Normal Femoral Neck (Right) 0.700 -1.3 -0.9 Osteopenia Total Hip (Right) 0.821 -1.0 -0.7 Normal Total Hip Mean 0.833 -0.9 -0.6 Normal World Health Organization criteria for BMD impression classify patients as: Normal (T-score at or above -1.0), Osteopenia (T-score between -1.0 and -2.5), or Osteoporosis (T-score at or below -2.5). 10-year Fracture Risk(1): Major Osteoporotic Fracture 2.9% Hip Fracture 0.2% Reported Risk Factors: [place] (), Neck BMD=0.700, BMI=22.3 (1) FRAX(R) Version 3.08. Fracture probability calculated for an untreated patient. Fracture probability may be lower if the patient has received treatment. Clinical Information Provided by Patient: Has used the following medications: Vitamin D, Calcium Has the following medical conditions: Hyperparathyroidism, Hysterectomy Patient maximum height was 65 No regular weight bearing exercise Does not regularly consume dairy products Drinks caffeinated beverages Onset of menses at age 14 Number of children 4 Impression: The patient has low bone mass, based on the Right Femoral Neck T-score. The patient has an estimated ten-year risk of hip fracture of 0.2% and an estimated ten-year risk of major fracture of 2.9%, based on the WHO FRAX algorithm. Discussion: BONE DENSITY IS LOW AT ONE OR MORE SKELETAL SITES. This patient's lowest T-score is low at one or more skeletal sites. It meets the World Health Organization's (WHO) criteria for ?low bone mass? (T-score between -1.0 and -2.5). The patient's 10-year risk of fracture as calculated by FRAX is less than the threshold where pharmacological therapy is recommended by the National Osteoporosis Foundation (NOF). However, all treatment decisions require clinical judgment and consideration of individual patient factors, including patient preferences, comorbidities, previous drug use, risk factors not captured in the FRAX model (e.g., frailty, falls, vitamin D deficiency, increased bone turnover, interval significant decline in bone density) and possible under or overestimation of fracture risk by FRAX. The patient should follow a healthful lifestyle (good nutrition with adequate calcium and vitamin D, and appropriate weight-bearing exercise). Follow-Up: Consider repeating this study in 2 to 3 years to reassess this patient'
== END 2022-02-18 15:58 | disposition home or self-care (01) ==
PROVIDERS: PCP Family Medicine; Visit Provider Internal Medicine Endocrinology, Diabetes & Metabolism
DX: N95.9 Unspecified menopausal and perimenopausal disorder (principal); M85.88 Other specified disorders of bone density and structure, other site; M85.851 Other specified disorders of bone density and structure, right thigh
CPT/HCPCS: 77080

== ENCOUNTER 2023-08-20 09:40 | Outpatient (CLI) | payer OTHER, SELFPAY ==
--- NOTE | ~2023-08-20 | MM_ITS ---
EXAMINATION: MM screening jordan BI w flavia HISTORY: Screening TECHNIQUE: Craniocaudal and mediolateral oblique 3-D tomosynthesis images were obtained and synthetic 2-D images were generated. CAD analysis was submitted and interpreted. COMPARISON: 08/27/2020 BREAST PARENCHYMAL COMPOSITION: Dense: The breasts are heterogeneously dense, which may obscure small masses FINDINGS: There is no evidence of suspicious mass, calcification, or architectural distortion to sugg est malignancy in either breast. There has been no suspicious interval change. IMPRESSION: 1. No mammographic evidence of malignancy. 2. Recommend routine screening mammography in one year. BI-RADS Category 1: Negative Reviewed, dictated and finalized at location B.
== END 2023-08-20 09:41 ==
LOC: MICIMG 09:42
PROVIDERS: PCP Family Medicine; Visit Provider Family Medicine
DX: Z12.31 Encounter for screening mammogram for malignant neoplasm of breast (principal)
CPT/HCPCS: 77063; 77067

== ENCOUNTER 2024-07-17 12:13 | Emergency (ER) | payer OTHER, SELFPAY ==
[2024-07-17 12:20] VITALS: BP 125/68; PULSE 87; RESP 20; TEMP 36.2; O2SAT 100
--- NOTE | 2024-07-17 12:36 | ED.FEMALEGU ---
HPI - Female Genitourinary General Chief complaint: Urogenital-Female Stated complaint: Nausea/Urinary Problem Time Seen by Provider: 07/17/24 12:33 Source: patient and RN notes reviewed Mode of arrival: ambulatory Limitations: no limitations History of Present Illness HPI Narrative: Patient presents today complaining of urgency, frequency, dysuria, nausea, sweats, and 1 episode of vomiting. Reports that symptoms except vomiting have been present intermittently for 1 month, worse today. Denies abdominal pain, fever, back pain. She took a dose of azo 1 hour prior to arrival. Related Data Home Medications ?Medication ?Instructions ?Recorded ?Confirmed ?Last Taken ?Type trazodone 50 mg tablet 50 mg PO DAILY 07/02/21 07/12/23 Unknown History bupropion HCl 300 mg 24 hr tablet, mg PO 07/17/24 Unknown History extended release cariprazine 3 mg capsule (Vraylar) mg 07/17/24 Unknown History duloxetine 60 mg capsule,delayed mg PO 07/17/24 Unknown History release Allergies Allergy/AdvReac Type Severity Reaction Status Date / Time No Known Allergies Allergy Verified 07/17/24 12:24 Review of Systems Review of Systems: CONSTITUTIONAL: Denies body aches, fever, chills. + sweats EYES: Denies visual changes, redness, or discharge. ENT: Denies rhinorrhea, congestion, sore throat, or otalgia. CARDIOVASCULAR: Denies chest pain, palpitations, or edema. RESPIRATORY: Denies cough or dyspnea. GASTROINTESTINAL: Denies abdominal pain, or diarrhea.+ nausea, vomiting GENITOURINARY:+ urgency, frequency, dysuria SKIN: Denies rash, itching, or wounds. MUSCULOSKELETAL: Denies back pain, joint pain, or myalgia. NEUROLOGIC: Denies headache, numbness, tingling, or weakness. PSYCH: Denies depression or anxiety. [facility] Past Medical History Medical History Hyperlipidemia Chronic fatigue Fibroids PTSD (post-traumatic stress disorder) GERD (gastroesophageal reflux disease) Asthma Bipolar disorder Normal colonoscopy (~01/2020) Current moderate episode of major depressive disorder without prior episode Generalized anxiety disorder Migraine, unspecified, not intractable, without status migrainosus Surgical History Surgical History Hx of parathyroidectomy (~05/2022) upper right lobe History of bunionectomy of right great toe (~10/2020) H/O: hysterectomy (~09/02/20) History of suburethral sling procedure History of abdominoplasty 2012 Family History Family History Mother Depression Family history of heart disease in male family member before age 55 Hypertension Sibling Depression Family history of migraine headaches Father Family history of alcoholism Other Family history of malignant neoplasm of male breast Social History Social History Smoking packs per day: 1 Smoking cigarettes per day: 20.0 Years smoked: 10 Smoking pack-years: 10.00 Smoking status: Former smoker Tobacco type: cigarettes Smoking end date: 05/03/03 Alcohol intake: never Substance use: never Substance use type: does not use Lack of Transportation: No Lack of Food: Never True Current Housing: I Have Housing Concerned About Future Housing: No Difficulty Paying Gas/Electric Bills: No Difficulty Paying for Meds: No Currently Unemployed: No Education: High School Diploma/GED Difficulty w/ Childcare or Family Care: No Living arrangements: with family Spiritual care concerns: No Comments At time of signature, I have reviewed and agree with nursing past medical, surgical, social and family history unless otherwise noted. Please see nursing chart for further information. There is no relevant family history pertinent to the presenting complaint Exam Narrative: GENERAL: Well-appearing, well-nourished, and in no acute distress. HEAD: Normocephalic, atraumatic. EYES: EOMI. No redness or drainage. Conjunctivae normal. ENT: Mucous membranes pink and moist. NECK: Normal AROM. CHEST: No respiratory distress. Clear to auscultation. HEART: Regular rate and rhythm. No murmur appreciated. Normal peripheral pulses. ABDOMEN: Soft, nondistended, normal active bowel sounds.+ suprapubic tenderness.-CVAT EXTREMITIES: Normal range of motion. No edema. SKIN: Warm, dry, no rash. Capillary refill normal. Normal skin turgor. NEURO: No focal deficits. Alert and oriented x3. Gait steady. PSYCH: Normal affect. No signs of depression or anxiety. Course Course Level of Care: Express Care Visit Vital Signs Vital signs: Vital Signs Temperature 97.2 F L 07/17/24 12:20 Pulse Rate 87 07/17/24 12:20 Respiratory Rate 20 07/17/24 12:20 Blood Pressure 125/68 07/17/24 12:20 Pulse Oximetry 100 07/17/24 12:20 Oxygen Delivery Room Air 07/17/24 12:20 Temperature 97.2 F L 07/17/24 12:20 Pulse Rate 87 07/17/24 12:20 Respiratory Rate 20 07/17/24 12:20 Blood Pressure 125/68 07/17/24 12:20 Pulse Oximetry 100 07/17/24 12:20 Oxygen Delivery Room Air 07/17/24 12:20 Reviewed MDM - Female Genitourinary MDM Narrative Medical decision making narrative: Patient's urinalysis results cannot be accurately interpreted due to azo use. Will start her on a course of Keflex and weight on urine culture results. Zofran rx also sent for nausea and vomiting. Anticipatory guidance and ED precautions given. Differential Diagnosis Differential diagnosis: Likely urinary tract infection, cystitis and other (Pyelonephritis) Lab Data Attestation: I reviewed the patient's lab results. Lab results narrative: Urinalysis: Glucose 1+ Bilirubin 2+ Ketones 2+ Specific gravity 1.025 Blood 1+ PH 5.0 Protein 3+ Urobilinogen greater than 8.0 Nitrates positive Leukocyte esterase 3+ Patient took azo prior to arrival. Critical Care Time Critical Care Time Critical Care Time: No Discharge Plan Discharge Clinical Impression: UTI symptoms Patient Disposition: Home, Self-Care Condition: Stable Instructions: Antibiotic Form, Urinary Tract Infection in Women (DC) Additional Instructions: Please take the Keflex and Zofran as prescribed. Rest and drink plenty of fluids. You will be notified by telephone if your antibiotics need to be changed out after your urine culture results. As discussed, please go to the ER immediately if symptoms worsen to include fever, severe abdominal or back pain, persistent vomiting. Your blood pressure was elevated above 120/80 today at Urgent Care. This puts you above the threshold for follow up. Please schedule a followup visit with your personal physician as soon as possible, for further evaluation and treatment. Even blood pressure exceeding 120/80 may indicate pre-hypertension. Patient Language: Macedonian Prescriptions: New cephalexin 500 mg capsule 500 mg PO Q6H 7 Days Qty: 28 0RF ondansetron 4 mg tablet,disintegrating 4 mg PO TID PRN (Reason: nausea and vomiting) Qty: 15 0RF No Action trazodone 50 mg tablet 50 mg PO DAILY bupropion HCl 300 mg tablet extended release 24 hr PO duloxetine 60 mg capsule,delayed release(DR/EC) PO Vraylar 3 mg capsule liothyronine 5 mcg tablet 2.5 mcg PO DAILY Qty: 60 0RF Follow-up/Referrals: Lakia Briggs MD [Primary Care Provider] - Stand Alone Forms: Work/School Release IP Time of Disposition: 12:40
[2024-07-17 12:37] LABS: EDUAAPPEAR Clear; EDUABILI 2+ (Negative); EDUABLOOD 1+ (Negative); EDUACOLOR1 Orange; EDUAGLUCOSE 1+ (Negative); EDUAKETONE 2+ (Negative); EDUALEUKO 3+ (Negative); EDUANITRATE Positive (Negative); EDUAPROTEIN 3+ (Negative); EDUASPGRAVITY 1.025
--- OUTSIDE RECORDS SUMMARY | 2024-07-17 14:34 | XMS_ITS ---
Author Organization [facility] [employer] [facility] Address [address] [facility] [address] [address] Care Team Providers Care Costing Analyst Name Role Phone Brigitte MAURICE, Joel Primary Care Provider Unavailable Elissa Lantigua [phone] REASON FOR VISIT Follow Up Visit Social History Sex Assigned At : Social History Observation Description Sex Assigned At Female Encounters Encounter Location Date Provider Diagnosis [facility] [employer] [facility] [address] [address] 01/28/2024 Elissa Lantigua Plan Of Treatment Next Appt Details Provider Name:Elissa Lantigua , 08/04/2024 04:15:00 PM, [address], [facility] [address], [place], [address], Progress Notes * LESLY PAYNE MDOB:[birth year] (48 yo F)Acc No.[id number]:01/28/2024 Patient: LESLY PINEDA Provider: BAILEY MCDOWELL :1975 A ge:48 Y S ex:Female Date:01/28/2024 [address] Pcp:Joel Dominique Subjective: * Chief Complaints: * 1 . Follow Up Visit. * Medical History: Objective: * Vitals: Assessment: Plan: * Treatment: * Procedure Codes: N S NO SHOW * Billing Information: * Visit Code: * Procedure Codes: NS NO SHOW. * Sign off status: Completed true * Provider: BAILEY MCDOWELL Date: 0 01/28/2024 Generated for Nilsa Mkcoy on: 0 2024 02:34 PM CDT
--- OUTSIDE RECORDS SUMMARY | 2024-07-17 14:35 | XMS_ITS | Patient Health Summary ---
Author Organization [facility] Address [address] [place] [address] Care Team Providers Care Fuel Yard Operator Name Role Phone Junaid Lopez MD Primary Care Provider [phone] Note from [facility],non-owned Affiliates and Associated Physician Practices is amultiple site organization consisting of ambulatory clinics and hospital sitesin [place], [place], [place] and [place]. This disclosure is being madepursuant to the Care Everywhere program and may not contain all information available regarding this patient. Last updated 18.[facility] Allergies No known active allergies Medications * Be aware that medications may not be up to date on this document. Alwaysverify current medications with the patient. * fluticasone propionate (FLONASE) 50 MCG/ACT nasal spray(Started 06/27/2017) [place] 1 spray into each nostril 2 times daily * albuterol HFA (VENTOLIN HFA) 108 (90 BASE) MCG/ACT inhaler(Started 01/30/2018) Inhale 2 puffs by mouth every 6 hours as needed 3 refills remaining * SUMATRIPTAN SUCCINATE PO * QVAR REDIHALER 40 MCG/ACT inhaler(Started 08/17/2018) * cyclobenzaprine (FLEXERIL) 10 MG tablet(Started 08/18/2018) * SUMAtriptan (IMITREX) 50 MG tablet(Started 08/17/2018) * Lactobacillus (PROBIOTIC ACIDOPHILUS PO) * multivitamin daily tablet Take 1 tablet by mouth daily with food * DULoxetine (CYMBALTA) 30 MG capsule(Started 07/04/2019) TK 1 C PO QD * meloxicam (Mobic) 15 MG tablet(Started 06/05/2022) Take 1 (one) tablet by mouth once daily Active Problems No known active problems Social History Tobacco Use Types Packs/Day Years Used Date Smoking Tobacco: Former Cigarettes Smokeless Tobacco: Never Tobacco Cessation:Counseling Given: Yes Sex and Gender Information Value Date Recorded Sex Assigned at Not on file Gender Identity Not on file Sexual Orientation Not on file Last Filed Vital Signs Vital Sign Reading Time Taken Comments Blood Pressure 104/64 11/11/2018 2:03 PM CDT Pulse 84 11/11/2018 2:03 PM CDT Temperature 36.9 C (98.4 F) 11/11/2018 2:03 PM CDT Respiratory Rate 16 11/11/2018 2:03 PM CDT Oxygen Saturation 98% 11/11/2018 2:03 PM CDT Inhaled Oxygen Concentration - - Weight 67.6 kg (149 lb) 07/10/2019 11:16 AM CDT Height 165.1 cm (5' 5 ) 07/10/2019 11:16 AM CDT Body Mass Index 24.79 07/10/2019 11:16 AM CDT Procedures * XR ELBOW RIGHT 2VW(Performed 04/06/2022) Performed for Bilateral elbow joint pain * XR ELBOW LEFT 2VW(Performed 04/06/2022) Performed for Bilateral elbow joint pain * XR KNEE RIGHT 2VW OR LESS(Performed 10/23/2019) Performed for Acute pain of right knee * XR KNEE RIGHT 4VW OR MORE(Performed 07/10/2019) Performed for Chronic pain of right knee * CULTURE RESPIRATORY UPPER(Performed 08/17/2018) Performed for Nasopharyngitis acute * STREP A SCREEN - POINT OF CARE (AMB) STL(Performed 08/17/2018) Performed for Nasopharyngitis acute * STREP A SCREEN - POINT OF CARE (AMB) STL(Performed 07/11/2018) Performed for Acute maxillary sinusitis, recurrence not specified * PULSE OXIMETRY - POINT OF CARE (AMB)(Performed 11/25/2017) Performed for Extrinsic asthma with acute exacerbation, unspecified asthma severity, unspecified whether persistent (HCC) * STREP A SCREEN - POINT OF CARE (AMB) STL(Performed 11/11/2016) Performed for Strep throat * INFLUENZA A+B - POINT OF CARE (AMB)(Performed 06/18/2016) Performed for Influenza * STREP A SCREEN - POINT OF CARE (AMB) STL(Performed 06/18/2016) Performed for Influenza Results * XR ELBOW RIGHT 2VW (04/06/2022 1:52 PM DIRECTOR HRIS) Anatomical Region Laterality Modality Upper Extremity Computed Radiogr aphy Narrative 04/06/2022 1:54 PM DIRECTOR HRIS Barbara Samaniego 04/06/2022 2:44 PM Please see progress notes for xray results Micki GARIBAY DIAGNOSTIC IMAGING O RDERABLES * XR ELBOW LEFT 2VW (04/06/2022 1:52 PM DIRECTOR HRIS) Anatomical Region Laterality Modality Upper Extremity Computed Radiogr aphy Narrative 04/06/2022 1:54 PM DIRECTOR HRIS Barbara Samaniego 04/06/2022 2:44 PM Please see progress notes for xray results Micki [facility] O RDERABLES * XR KNEE RIGHT 2VW OR LESS (10/23/2019 8:48 AM CDT) Anatomical Region Laterality Modality Lower Extremity Computed Radiogr aphy Narrative 10/23/2019 8:49 AM CDT Negin Zuniga, RT(R) 10/23/2019 4:45 PM See progress notes for results Andrew Driver MD DIAGNOSTIC IMAGING O RDERABLES * XR KNEE RIGHT 4VW OR MORE (07/10/2019 11:22 AM CDT) Anatomical Region Laterality Modality Lower Extremity Computed Radiogr aphy Narrative 07/10/2019 11:22 AM CDT Negin Zuniga, RT(R) 07/12/2019 7:44 AM See progress notes for results Andrew Driver MD DIAGNOSTIC IMAGING O RDERABLES * [facility] Throat Culture (08/17/2018 9:58 AM CDT) Pathologist [facility] Upper Respiratory Culture Final report [facility] INSURANCE BILL Result 1 [facility] INSURANCE BILL Comment:Routine respiratory charlotte Microbiology ENTIRE THROAT (SURFACE REGION OF NECK) / Unknown 08/17/2018 9:58 AM CDT 08/17/2018 Narrative Resulting Agency Comment [facility]: [facility] [address] [facility] [id number] Quynh Gomez [facility] ORDERABLES [facility] INSURANCE BILL [address] [place] [address] * STREP A SCREEN (08/17/2018) Only the most recent of4 resultswithin the time period is included. Pathologist [facility] Strep A Rapid POCT Negative Negative Strep A Internal Control Present Lot # [id number] Expiration Date 03/02/2020 Throat ENTIRE THROAT (SURFACE REGION OF NECK) / Unknown 08/17/2018 Quynh Gomez [facility] - POINT OF CARE ORDERABLES * PULSE OXIMETRY - POINT OF CARE (AMB) (11/25/2017) Pathologist [facility] Oximetry POCT 98 0 - 100 % Comment:room air QC Verified Yes Blood BLOOD SPECIMEN / Unknown 11/25/2017 Jaqueline Miner APRN-[facility] - POINT OF CA RE ORDERABLES * (ABNORMAL) INFLUENZA A+B - POINT OF CARE (AMB) (06/18/2016) Pathologist [facility] Influenza A Antigen Rapid Negative Negative Influenza B Antigen Rapid Positive(A) Negative Influenza Internal Control yes NEGATIVE - POSITIVE Influenza Lot Number [id number] Influenza Expiration Date 50,119 Other NASOPHARYNGEAL SWAB / Unknown 06/18/2016 Mirian Harkins APRN-[facility] - POINT OF CARE ORDERABLES Care Teams Fuel Yard Operator Relationship Specialty Start Date End Date Junaid Lopez MD [address] [place] [address] PCP - General Family Medicine 06/27/17
--- OUTSIDE RECORDS SUMMARY | 2024-07-17 14:35 | XMS_ITS | Encounter Summary ---
Author Organization [facility] Address [address] [place] [address] Care Team Providers Care Tube Turner Name Role Phone Unavailable Primary Care Provider Unavailabl e Encounter Details Date Type Department Care Team (Late st Contact Info) Description 03/14/1998 Outpatient Historical [facility] Family Medicine Valdemar Chen [address] [place] [address] Osmel Julio, [address] [address] Social History Tobacco Use Types Packs/Day Years Used Date Smoking Tobacco: Never Assessed Comments Unknown Sex and Gender Information Value Date Recorded Sex Assigned at Not on file Legal Sex Female 4: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
--- OUTSIDE RECORDS SUMMARY | 2024-07-17 14:35 | XMS_ITS | Encounter Summary ---
Author Organization [employer] Address 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 Gender Identity Not on file Sexual Orientation Not on file documented as of this encounter Plan of Treatment Not on file documented as of this encounter Procedures Procedure Name Priority Date/Time Associated Diagnosis Comments US BIOPHYSICAL PROF W NST Timed Study 11/27/2008 8:19 AM CDT US OB LTD 1 OR MORE FETUSES Timed Study 11/27/2008 8:19 AM CDT US BIOPHYSICAL PROF W NST Timed Study 11/19/2008 4:24 PM CDT US OB LTD 1 OR MORE FETUSES Timed Study 11/19/2008 4:24 PM CDT US OB LTD 1 OR MORE FETUSES Timed Study 11/13/2008 2:32 PM CDT documented in this encounter Results * US OB LTD 1 OR MORE FETUSES (11/27/2008 8:19 AM CDT) Anatomical Region Laterality Modality Pelvis Other Narrative 11/27/2008 8:19 AM CDT FINAL - Order Information Only Procedure Note Victor M De La Rosa RN - 05/21/2015 FINAL - Order Information Only us Bailey Mcmahon MD US ORDERABLES Final Result * US BIOPHYSICAL PROFILE (11/27/2008 8:19 AM CDT) Anatomical Region Laterality Modality Pelvis Other Narrative 11/27/2008 8:19 AM CDT FINAL - Order Information Only Procedure Note Victor M De La Rosa RN - 05/21/2015 FINAL - Order Information Only us Bailey Mcmahon MD US ORDERABLES Final Result * US BIOPHYSICAL PROFILE (11/19/2008 4:24 PM CDT) Anatomical Region Laterality Modality Pelvis Other Narrative 11/19/2008 4:24 PM CDT FINAL - Order Information Only Procedure Note Victor M De La Rosa RN - 05/21/2015 FINAL - Order Information Only us Bailey Mcmahon MD US ORDERABLES Final Result * US OB LTD 1 OR MORE FETUSES (11/19/2008 4:24 PM CDT) Anatomical Region Laterality Modality Pelvis Other Narrative 11/19/2008 4:24 PM CDT FINAL - Order Information Only Procedure Note Victor M De La Rosa RN - 05/21/2015 FINAL - Order Information Only Result Cleveland Mcmahon MD US ORDERABLES Final Result * US OB LTD 1 OR MORE FETUSES (11/13/2008 2:32 PM CDT) Anatomical Region Laterality Modality Pelvis Other Narrative 11/13/2008 2:32 PM CDT FINAL - Order Information Only Procedure Note Victor M De La Rosa, RN - 05/21/2015 FINAL - Order Information Only us Bailey Mcmahon MD US ORDERABLES Final Result documented in this encounter Visit Diagnoses Diagnosis Triplet , antepartum documented in this encounter
--- OUTSIDE RECORDS SUMMARY | 2024-07-17 14:35 | XMS_ITS | Clinical Summary ---
Author Organization 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,non-owned Affiliates and Associated Physician Practices is amultiple site organization consisting of ambulatory clinics and hospital sitesin [place], [place], [place] and [place]. This disclosure is being madepursuant to the Care Everywhere program and may not contain all information available regarding this patient. Last updated 18.[facility] Allergies No known active allergies Medications * Be aware that medications may not be up to date on this document. Alwaysverify current medications with the patient. Medication Sig Dispensed Refills Start Date End Date Status fluticasone propionate (FLONASE) 50 MCG/ACT nasal sprayIndications:Acut e maxillary sinusitis, recurrence not specified [place] 1 spray into each nostril 2 times daily 1 bottles 06/27/2017 Active albuterol HFA (VENTOLIN HFA) 108 (90 BASE) MCG/ACT inhaler Inhale 2 puffs by mouth every 6 hours as needed 1 Inhaler 3 01/30/2018 Active SUMATRIPTAN SUCCINATE PO Active QVAR REDIHALER 40 MCG/ACT inhaler 08/17/2018 Active cyclobenzaprine (FLEXERIL) 10 MG tablet 08/18/2018 Active SUMAtriptan (IMITREX) 50 MG tablet 08/17/2018 Active Lactobacillus (PROBIOTIC ACIDOPHILUS PO) Active multivitamin daily tablet Take 1 tablet by mouth daily with food Active DULoxetine (CYMBALTA) 30 MG capsule TK 1 C PO QD 07/04/2019 Active meloxicam (Mobic) 15 MG tabletIndications:Chr onic elbow pain, left Take 1 (one) tablet by mouth once daily 30 tablet 06/05/2022 Active Active Problems No known active problems Social [...] Mass Index 24.79 07/10/2019 11:16 AM CDT Plan of Treatment Health Maintenance Due Date Last Done Comments COLOGUARD (AGES 45-75) - COL ON CA SCREENING 1976 COLON MONITORING 1976 COLONOSCOPY - COLON CA SCREENING 1976 CT COLONOGRAPHY - COLON CA SCREENING 1976 Colorectal Cancer Screening 1976 FIT - COLON CA SCREENING 1976 FLEX SIG - COLON CA SCREENING 1976 LIPID TESTING 1976 MAMMOGRAM 1976 PAP SMEAR 1976 HIV SCREENING 07/18/1991 HEPATITIS C SCREENING 07/13/1994 DTAP/TDAP/TD VACCINES (1 - Tdap) 07/18/1995 HEPATITIS B VACCINE (1 of 3 - 19+ 3-dose series) 07/18/1995 COVID-19 VACCINE (2023-2 5 season) 2024 INFLUENZA VACCINE (#1) 2024 07/09/2022 DEPRESSION SCREENING 05/03/2024 ZOSTER VACCINE (1 of 2) 2026 HIB VACCINE Aged Out No longer eligi ble based on patient's age to complete this topic HPV VACCINE Aged Out No longer eligi ble based on patient's age to complete this topic MENINGOCOCCAL (Group B) VACC INE SHARED DECISION-MAKING Aged Out No longer eligibl e based on patient's age to complete this topic MENINGOCOCCAL GROUPS A/C/Y/W VACCINE Aged Out No longer eligible b ased on patient's age to complete this topic PNEUMOCOCCAL VACCINE Aged Out No long er eligible based on patient's age to complete this topic Care Teams Boarding House Manager Relationship Specialty Start Date End Date Junaid Lopez MD [address] [place] [address] PCP - General Family Medicine 06/27/17
--- OUTSIDE RECORDS SUMMARY | 2024-07-17 14:35 | XMS_ITS | Clinical Summary ---
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 Gender Identity Not on file Sexual Orientation Not on file Plan of Treatment Health Maintenance Due Date Last Done Comments DTAP/TDAP/TD VACCINES (1 - Tdap) 07/18/1995 HEPATITIS B VACCINES (1 of 3 - 19+ 3-dose series) 07/18/1995 CERVICAL CANCER SCREENING 2006 BREAST CANCER SCREENING 2016 COLORECTAL SCREENING 2021 Colorectal Cancer Screening 2021 FIT-DNA Q 3 years 2021 FIT/FOBT Q 1 year 2021 Flex Sig/CT Colonography Q 5 years 2021 INFLUENZA VACCINE (#1) 2023 PNEUMOCOCCAL VACCINE 0-49 YEARS Aged Out No longer eligible based on patient's age to complete this topic Insurance [place] [address]
--- OUTSIDE RECORDS SUMMARY | 2024-07-17 14:35 | XMS_ITS ---
Author Organization [facility] [employer] Address [address] [place] [address] Care Team Providers Care Community Outreach Director Name Role Phone Brigitte MAURICE, Joel Primary Care Provider Unavailable Elissa Lantigua Unavailable [phone] Allergies No Known Allergies REASON FOR VISIT f/u rx need refills Medications Medication SIG (Take, Route, Frequency, Duration) Notes Start Date End Date Status 16.2-0.1037 -0.0194 mg Oral *Pick strength-form from [facility] for eRX* 08/26/2023 Not-Taking Levothyroxine Sodium 25 MCG Oral 08/26/2023 Not-Taking Cyclobenzaprine HCl 10 MG Oral 08/26/2023 Not-Taking Prazosin HCl 1 MG Oral 08/26/2023 N ot-Taking Ergocalciferol 1.25 MG (50259 UT) Oral 08/26/2023 Not-Taking HYDROcodone-Acetamino phen 5-325 MG Oral 08/26/2023 Not-Taking Proctozone-HC 2.5 % Rectal 08/26/2023 Not-Taking DODEX 1,000 MCG/ML INJECTION SOLUTION *Reorder from [facility] for eRx and Interaction Alerts* 08/26/2023 Not-Taking buPROPion HCl ER (XL) 300 MG 1 tablet every morning Oral Once a day for 90 days Active Tranexamic Acid 650 MG Oral 08/26/2023 Not-Taking Cyanocobalamin 1000 MCG/ML Injection 08/26/2023 Not-Taking Dicyclomine HCl 10 MG Oral 08/26/2023 Not-Taking hydrOXYzine HCl 25 MG 1 tablet Oral three times a day for 90 days 08/26/2023 Active busPIRone HCl 15 MG 1 tablet Oral three times a day for 90 days 08/26/2023 Active traZODone HCl 100 MG 1 tablet at bedtime Oral Once a day for 90 days 08/26/2023 Active SUMAtriptan Succinate 50 MG Oral 08/26/2023 Not-Taking Amitiza 8 MCG Oral 08/26/2023 Not-T aking busPIRone HCl 5 MG Oral 08/26/2023 Not-Taking Vraylar 3 mg take one capsule daily Oral bedtime for 90 days 08/26/2023 Active DULoxetine HCl 60 MG 1 capsule Oral Once a day for 90 days 08/26/2023 Active Tirosint 50 mcg Oral 08/26/2023 Act uzma Minipress 1 mg Oral 08/26/2023 Not- Taking Sucralfate 1 GM Oral 08/26/2023 Not -Taking SOLIFENACIN 5 MG TABLET *Reorder from [facility] for eRx and Interaction Alerts* 08/26/2023 Not-Taking Xifaxan 550 MG Oral 08/26/2023 Not- Taking Qvar RediHaler 80 MCG/ACT Inhalation 08/26/2023 Active ProAir HFA 108 (90 Base) MCG/ACT Inhalation 08/26/2023 Active Progesterone Micronized 100 MG Oral 08/26/2023 Active Liothyronine Sodium 5 MCG Oral 08/26/2023 Active Diclofenac Sodium 1% Transdermal 08/26/2023 Active Social History Tobacco Use: Social History Observation Description Date Details (start date - stop date) Former Smoker NA - NA Sex Assigned At : Social History Observation Description Sex Assigned At Female Tobacco Control (Standard) Question Answer Notes Tobacco use: Former smoker Problems Problem Type SNOMED Code ICD Code Onset Dates Problem Status W/U Status Risk Notes Problem Bipolar affective disorder, currently depressed, mild (947766893) Bipolar disorder, current episode depressed, mild (F31.31) 4 Active confirmed Problem Generalized anxiety disorder (15716401) Generalized anxiety disorder (F41.1) 4 Active confirmed Problem Posttraumatic stress disorder (43548645) Post-traumatic stress disorder, chronic (F43.12) 4 Active confirmed Problem Insomnia disorder 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 disorder (09581338) Insomnia due to other mental disorder (F51.05) 3 Active confirmed Problem Long-term current use of drug therapy (083658070) Other [facility] (current) drug therapy (Z79.899) 4 Active confirmed Problem [id number] Marijuana use (F12.90) Active confirmed Vital Signs Blood pressure systolic 128 mm Hg 02/04/20 24 Blood pressure diastolic 82 mm Hg 024 Heart Rate 85 /min 02/04/2024 Weight 167.4 lbs 02/04/2024 Weight-kg 75.93 kg 02/04/2024 Height 65.00 in 02/04/2024 Height-cm 165.10 cm 02/04/2024 BMI 27.85 kg/m2 02/04/2024 Encounters Encounter Location Date Provider Diagnosis [facility] [address] [address] 02/04/2024 Elissa Lantigua Bipolar disorder, current episode depressed, mild F31.31 ; Generalized anxiety disorder F41.1 ; Post-traumatic stress disorder, chronic F43.12 ; Insomnia due to other mental disorder F51.05 ; Other chcf (current) drug therapy Z79.899 and Marijuana use F12.90 Assessments Encounter Date Diagnosis (ICD Code) Assessment Notes Treatment Notes Treatment Clinical Notes Section Notes 02/04/2024 Bipolar disorder, current episode depressed, mild (ICD-10 - F31.31) presently taking Wellbutrin XL 300 mg daily, Cymbalta 60 mg daily, Vraylar 3 mg daily, Buspar 15 mg three times a day, Vistaril 25 mg three times a day, Trazodone 100 mg bedtime Bipolar AIMS= 0 02/04/24 Vraylar 3 mg daily Anxiety Wellbutrin XL 300 mg daily, Cymbalta 60 mg daily Buspar 15 mg three times a day, Vistaril 25 mg three times a day PTSD- therapy Insomnia Trazodone 100 mg bedtime Cannabis use- Recommend decrease/stop cannabis use as it can negatively impact mood, motivation, anxiety, sleep, focus/concentratio n/memory (vigilance, elasticity, processing and attention); can also contribute to development of psychosis. http_s://www.nimh. nih.gov/health/top ics/mental-health- medications http_s://www.nii. org/Epqol-Attemy-L llness/Treatments/ Hoihps-Xuqczj-Wdxu cations Recommend decrease/stop cannabis use as it may be negatively impacting mood, motivation, anxiety, sleep, focus; can also contribute to development of psychosis Cannabis/marijuana information: http_s://bubba.nih. gov/publications/d rugfacts/cannabis- marijuana http_s://www.Kaesu/cannabi z-cep-guewnjpo-mar ijuana-adhd/ http_s://www.nii. org/Jehho-Gjueec-U llness/Mental-Heal th-Conditions http_s://[employer]/depression /uio-vcjncqbyg-fze hkmgi-yt-vgpglsnwj n#treatments http__s://www.nimh .nih.gov/health/to pics/mental-health -medications http__s://www.nii .org/About-Mental- Illness/Treatments /Ttyzvj-Erecyx-Bsy ications educated on all medications, benefits, side effects and risk, and educated on depression, anxiety, and ADHD, mood d/o and educated on compliance of medications, metabolic and movement d/o education appointment's, continue therapy discussion with patient about course of treatment and patient instructions. education on serotonin syndrome Discussed and educated pt regarding benzodiazepines are generally not intended for prolonged use and that use can cause tolerance, dependence, depression, and associated memory issues including dementias (this list is not exhaustive). Benzodiazepine use is generally not recommended concurrently with pain medications and/or other controlled substances educated on all medications, benefits, side effects and risk, and educated on depression, anxiety, and ADHD, mood d/o and educated on compliance of medications, metabolic and movement d/o education appointment is, continue therapy discussion with patient about course of treatment and patient instructions. education on serotonin syndrome SSRI/SNRI side effects discussed including but not limited to, gastric upset, nausea, vomiting, diarrhea and/or constipation, weight changes, sexual side effects including loss of libido, increased suicidal thoughts/behaviors in children and young adults, and serotonin syndrome. Second generation antipsychotics (SGAs) have metabolic syndrome issues with weight gain, increase in prolactin, increased waist circumference, increased lipids, and increased glucose. Thus routine monitoring of weight, metabolic labs, etc. is indicated. A general rank ordering of antipsychotics that have the greatest to the least risk of metabolic effects is olanzapine, quetiapine, risperidone, ziprasidone, and aripiprazole. However, weight gain can occur with all of these drugs and considerable variability exists among patients receiving the same drug regarding the risk of metabolic effects. Anti-psychotic agents not only increase the risk of metabolic disorder, they also increase the risk of CVA, akathisia, and movement disorders including EPS or tardive dyskinesia (more common with first generation antipsychotics) and more. Medication Management and Follow-Up - Plan: - Schedule follow-up appointments every 1-3 months to monitor the patient's response to the medication regimen. - Reinforce the importance of avoiding recreational drug use due to potential neurotoxicity and interactions with prescribed medications. 02/04/2024 Generalized anxiety disorder (ICD-10 - F41.1) presently taking Wellbutrin XL 300 mg daily, Cymbalta 60 mg daily, Vraylar 3 mg daily, Buspar 15 mg three times a day, Vistaril 25 mg three times a day, Trazodone 100 mg bedtime Bipolar AIMS= 0 02/04/24 Vraylar 3 mg daily Anxiety Wellbutrin XL 300 mg daily, Cymbalta 60 mg daily Buspar 15 mg three times a day, Vistaril 25 mg three times a day PTSD- therapy Insomnia Trazodone 100 mg bedtime Cannabis use- Recommend decrease/stop cannabis use as it can negatively impact mood, motivation, anxiety, sleep, focus/concentratio n/memory (vigilance, elasticity, processing and attention); can also contribute to development of psychosis. http_s://www.nimh. nih.gov/health/top ics/mental-health- medications http_s://www.nii. org/Uiyrw-Iexcex-B llness/Treatments/ Llgqqm-Wnwokp-Oios cations Recommend decrease/stop cannabis use as it may be negatively impacting mood, motivation, anxiety, sleep, focus; can also contribute to development of psychosis Cannabis/marijuana information: http_s://bubba.nih. gov/publications/d rugfacts/cannabis- marijuana http_s://www.Kaesu/cannabi j-uhf-apbzvaok-mar ijuana-adhd/ http_s://www.nii. org/Szmug-Qsbzwp-T llness/Mental-Heal th-Conditions http_s://psychcent [employer].com/depression /ucq-jqbivubcc-fjl dxzqa-kz-gtqyeluis n#treatments http__s://www.nimh .nih.gov/health/to pics/mental-health -medications http__s://www.nii .org/About-Mental- Illness/Treatments /Oaokee-Lhfikb-Irp ications educated on all medications, benefits, side effects and risk, and educated on depression, anxiety, and ADHD, mood d/o and educated on compliance of medications, metabolic and movement d/o education appointment's, continue therapy discussion with patient about course of treatment and patient instructions. education on serotonin syndrome Discussed and educated pt regarding benzodiazepines are generally not intended for prolonged use and that use can cause tolerance, dependence, depression, and associated memory issues including dementias (this list is not exhaustive). Benzodiazepine use is generally not recommended concurrently with pain medications and/or other controlled substances educated on all medications, benefits, side effects and risk, and educated on depression, anxiety, and ADHD, mood d/o and educated on compliance of medications, metabolic and movement d/o education appointment is, continue therapy discussion with patient about course of treatment and patient instructions. education on serotonin syndrome SSRI/SNRI side effects discussed including but not limited to, gastric upset, nausea, vomiting, diarrhea and/or constipation, weight changes, sexual side effects including loss of libido, increased suicidal thoughts/behaviors in children and young adults, and serotonin syndrome. Second generation antipsychotics (SGAs) have metabolic syndrome issues with weight gain, increase in prolactin, increased waist circumference, increased lipids, and increased glucose. Thus routine monitoring of weight, metabolic labs, etc. is indicated. A general rank ordering of antipsychotics that have the greatest to the least risk of metabolic effects is olanzapine, quetiapine, risperidone, ziprasidone, and aripiprazole. However, weight gain can occur with all of these drugs and considerable variability exists among patients receiving the same drug regarding the risk of metabolic effects. Anti-psychotic agents not only increase the risk of metabolic disorder, they also increase the risk of CVA, akathisia, and movement disorders including EPS or tardive dyskinesia (more common with first generation antipsychotics) and more. Medication Management and Follow-Up - Plan: - Schedule follow-up appointments every 1-3 months to monitor the patient's response to the medication regimen. - Reinforce the importance of avoiding recreational drug use due to potential neurotoxicity and interactions with prescribed medications. 02/04/2024 Post-traumatic stress disorder, chronic (ICD-10 - F43.12) presently taking Wellbutrin XL 300 mg daily, Cymbalta 60 mg daily, Vraylar 3 mg daily, Buspar 15 mg three times a day, Vistaril 25 mg three times a day, Trazodone 100 mg bedtime Bipolar AIMS= 0 02/04/24 Vraylar 3 mg daily Anxiety Wellbutrin XL 300 mg daily, Cymbalta 60 mg daily Buspar 15 mg three times a day, Vistaril 25 mg three times a day PTSD- therapy Insomnia Trazodone 100 mg bedtime Cannabis use- Recommend decrease/stop cannabis use as it can negatively impact mood, motivation, anxiety, sleep, focus/concentratio n/memory (vigilance, elasticity, processing and attention); can also contribute to development of psychosis. http_s://www.nimh. nih.gov/health/top ics/mental-health- medications http_s://www.nii. org/Xtevl-Kvasrj-G llness/Treatments/ Rogwob-Guolzi-Aoij cations Recommend decrease/stop cannabis use as it may be negatively impacting mood, motivation, anxiety, sleep, focus; can also contribute to development of psychosis Cannabis/marijuana information: http_s://bubba.nih. gov/publications/d rugfacts/cannabis- marijuana http_s://www.Kaesu/cannabi t-tiy-pklceotc-mar ijuana-adhd/ http_s://www.nii. org/Rwrzn-Vfjnsj-Y llness/Mental-Heal th-Conditions http_s://psychcent Vontu.com/depression /uov-qvuzftpdz-lea hmdjc-tl-gvofjcwaj n#treatments http__s://www.nimh .nih.gov/health/to pics/mental-health -medications http__s://www.nii .org/About-Mental- Illness/Treatments /Mjpflp-Axrqhs-Izw ications educated on all medications, benefits, side effects and risk, and educated on depression, anxiety, and ADHD, mood d/o and educated on compliance of medications, metabolic and movement d/o education appointment's, continue therapy discussion with patient about course of treatment and patient instructions. education on serotonin syndrome Discussed and educated pt regarding benzodiazepines are generally not intended for prolonged use and that use can cause tolerance, dependence, depression, and associated memory issues including dementias (this list is not exhaustive). Benzodiazepine use is generally not recommended concurrently with pain medications and/or other controlled substances educated on all medications, benefits, side effects and risk, and educated on depression, anxiety, and ADHD, mood d/o and educated on compliance of medications, metabolic and movement d/o education appointment is, continue therapy discussion with patient about course of treatment and patient instructions. education on serotonin syndrome SSRI/SNRI side effects discussed including but not limited to, gastric upset, nausea, vomiting, diarrhea and/or constipation, weight changes, sexual side effects including loss of libido, increased suicidal thoughts/behaviors in children and young adults, and serotonin syndrome. Second generation antipsychotics (SGAs) have metabolic syndrome issues with weight gain, increase in prolactin, increased waist circumference, increased lipids, and increased glucose. Thus routine monitoring of weight, metabolic labs, etc. is indicated. A general rank ordering of antipsychotics that have the greatest to the least risk of metabolic effects is olanzapine, quetiapine, risperidone, ziprasidone, and aripiprazole. However, weight gain can occur with all of these drugs and considerable variability exists among patients receiving the same drug regarding the risk of metabolic effects. Anti-psychotic agents not only increase the risk of metabolic disorder, they also increase the risk of CVA, akathisia, and movement disorders including EPS or tardive dyskinesia (more common with first generation antipsychotics) and more. Medication Management and Follow-Up - Plan: - Schedule follow-up appointments every 1-3 months to monitor the patient's response to the medication regimen. - Reinforce the importance of avoiding recreational drug use due to potential neurotoxicity and interactions with prescribed medications. 02/04/2024 Insomnia due to other mental disorder (ICD-10 - F51.05) presently taking Wellbutrin XL 300 mg daily, Cymbalta 60 mg daily, Vraylar 3 mg daily, Buspar 15 mg three times a day, Vistaril 25 mg three times a day, Trazodone 100 mg bedtime Bipolar AIMS= 0 02/04/24 Vraylar 3 mg daily Anxiety Wellbutrin XL 300 mg daily, Cymbalta 60 mg daily Buspar 15 mg three times a day, Vistaril 25 mg three times a day PTSD- therapy Insomnia Trazodone 100 mg bedtime Cannabis use- Recommend decrease/stop cannabis use as it can negatively impact mood, motivation, anxiety, sleep, focus/concentratio n/memory (vigilance, elasticity, processing and attention); can also contribute to development of psychosis. http_s://www.nimh. nih.gov/health/top ics/mental-health- medications http_s://www.nii. org/Dssbc-Hdwgit-N llness/Treatments/ Xrorom-Nvqogt-Dplb cations Recommend decrease/stop cannabis use as it may be negatively impacting mood, motivation, anxiety, sleep, focus; can also contribute to development of psychosis Cannabis/marijuana information: http_s://bubba.nih. gov/publications/d rugfacts/cannabis- marijuana http_s://www.Kaesu/cannabi m-knf-sqpkdxmx-mar ijuana-adhd/ http_s://www.nii. org/Krnzv-Zeglur-L llness/Mental-Heal th-Conditions http_s://[employer].com/depression /aud-hnmecwroj-tqd kazph-pl-uintlxwdm n#treatments http__s://www.nimh .nih.gov/health/to pics/mental-health -medications http__s://www.nii .org/About-Mental- Illness/Treatments /Fodqai-Movzmg-Eot ications educated on all medications, benefits, side effects and risk, and educated on depression, anxiety, and ADHD, mood d/o and educated on compliance of medications, metabolic and movement d/o education appointment's, continue therapy discussion with patient about course of treatment and patient instructions. education on serotonin syndrome Discussed and educated pt regarding benzodiazepines are generally not intended for prolonged use and that use can cause tolerance, dependence, depression, and associated memory issues including dementias (this list is not exhaustive). Benzodiazepine use is generally not recommended concurrently with pain medications and/or other controlled substances educated on all medications, benefits, side effects and risk, and educated on depression, anxiety, and ADHD, mood d/o and educated on compliance of medications, metabolic and movement d/o education appointment is, continue therapy discussion with patient about course of treatment and patient instructions. education on serotonin syndrome SSRI/SNRI side effects discussed including but not limited to, gastric upset, nausea, vomiting, diarrhea and/or constipation, weight changes, sexual side effects including loss of libido, increased suicidal thoughts/behaviors in children and young adults, and serotonin syndrome. Second generation antipsychotics (SGAs) have metabolic syndrome issues with weight gain, increase in prolactin, increased waist circumference, increased lipids, and increased glucose. Thus routine monitoring of weight, metabolic labs, etc. is indicated. A general rank ordering of antipsychotics that have the greatest to the least risk of metabolic effects is olanzapine, quetiapine, risperidone, ziprasidone, and aripiprazole. However, weight gain can occur with all of these drugs and considerable variability exists among patients receiving the same drug regarding the risk of metabolic effects. Anti-psychotic agents not only increase the risk of metabolic disorder, they also increase the risk of CVA, akathisia, and movement disorders including EPS or tardive dyskinesia (more common with first generation antipsychotics) and more. Medication Management and Follow-Up - Plan: - Schedule follow-up appointments every 1-3 months to monitor the patient's response to the medication regimen. - Reinforce the importance of avoiding recreational drug use due to potential neurotoxicity and interactions with prescribed medications. 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) presently taking Wellbutrin XL 300 mg daily, Cymbalta 60 mg daily, Vraylar 3 mg daily, Buspar 15 mg three times a day, Vistaril 25 mg three times a day, Trazodone 100 mg bedtime Bipolar AIMS= 0 02/04/24 Vraylar 3 mg daily Anxiety Wellbutrin XL 300 mg daily, Cymbalta 60 mg daily Buspar 15 mg three times a day, Vistaril 25 mg three times a day PTSD- therapy Insomnia Trazodone 100 mg bedtime Cannabis use- Recommend decrease/stop cannabis use as it can negatively impact mood, motivation, anxiety, sleep, focus/concentratio n/memory (vigilance, elasticity, processing and attention); can also contribute to development of psychosis. http_s://www.nimh. nih.gov/health/top ics/mental-health- medications http_s://www.nii. org/Jvjgf-Tblhji-W llness/Treatments/ Qskatu-Tztnlm-Qneb cations Recommend decrease/stop cannabis use as it may be negatively impacting mood, motivation, anxiety, sleep, focus; can also contribute to development of psychosis Cannabis/marijuana information: http_s://bubba.nih. gov/publications/d rugfacts/cannabis- marijuana http_s://www.Kaes[employer]/cannabi u-ndl-ayyawnni-mar ijuana-adhd/ http_s://www.nii. org/Hfygt-Ijanjk-B llness/Mental-Heal th-Conditions http_s://psych[employer]iction.com/depression /uiz-nhlhwbuqg-uzz mqfdi-co-jorqoohoh n#treatments http__s://www.nimh .nih.gov/health/to pics/mental-health -medications http__s://www.nii .org/About-Mental- Illness/Treatments /Pitwua-Ylpjmw-Hid ications educated on all medications, benefits, side effects and risk, and educated on depression, anxiety, and ADHD, mood d/o and educated on compliance of medications, metabolic and movement d/o education appointment's, continue therapy discussion with patient about course of treatment and patient instructions. education on serotonin syndrome Discussed and educated pt regarding benzodiazepines are generally not intended for prolonged use and that use can cause tolerance, dependence, depression, and associated memory issues including dementias (this list is not exhaustive). Benzodiazepine use is generally not recommended concurrently with pain medications and/or other controlled substances educated on all medications, benefits, side effects and risk, and educated on depression, anxiety, and ADHD, mood d/o and educated on compliance of medications, metabolic and movement d/o education appointment is, continue therapy discussion with patient about course of treatment and patient instructions. education on serotonin syndrome SSRI/SNRI side effects discussed including but not limited to, gastric upset, nausea, vomiting, diarrhea and/or constipation, weight changes, sexual side effects including loss of libido, increased suicidal thoughts/behaviors in children and young adults, and serotonin syndrome. Second generation antipsychotics (SGAs) have metabolic syndrome issues with weight gain, increase in prolactin, increased waist circumference, increased lipids, and increased glucose. Thus routine monitoring of weight, metabolic labs, etc. is indicated. A general rank ordering of antipsychotics that have the greatest to the least risk of metabolic effects is olanzapine, quetiapine, risperidone, ziprasidone, and aripiprazole. However, weight gain can occur with all of these drugs and considerable variability exists among patients receiving the same drug regarding the risk of metabolic effects. Anti-psychotic agents not only increase the risk of metabolic disorder, they also increase the risk of CVA, akathisia, and movement disorders including EPS or tardive dyskinesia (more common with first generation antipsychotics) and more. Medication Management and Follow-Up - Plan: - Schedule follow-up appointments every 1-3 months to monitor the patient's response to the medication regimen. - Reinforce the importance of avoiding recreational drug use due to potential neurotoxicity and interactions with prescribed medications. 02/04/2024 Marijuana use (ICD-10 - F12.90) Marijuana Use: Care Instructions material was published, Learning About Cannabis Use Disorder material was published presently taking Wellbutrin XL 300 mg daily, Cymbalta 60 mg daily, Vraylar 3 mg daily, Buspar 15 mg three times a day, Vistaril 25 mg three times a day, Trazodone 100 mg bedtime Bipolar AIMS= 0 02/04/24 Vraylar 3 mg daily Anxiety Wellbutrin XL 300 mg daily, Cymbalta 60 mg daily Buspar 15 mg three times a day, Vistaril 25 mg three times a day PTSD- therapy Insomnia Trazodone 100 mg bedtime Cannabis use- Recommend decrease/stop cannabis use as it can negatively impact mood, motivation, anxiety, sleep, focus/concentratio n/memory (vigilance, elasticity, processing and attention); can also contribute to development of psychosis. http_s://www.nimh. nih.gov/health/top ics/mental-health- medications http_s://www.nii. org/Iagtw-Oiedjp-G llness/Treatments/ Hybrlc-Gdtemj-Jowk cations Recommend decrease/stop cannabis use as it may be negatively impacting mood, motivation, anxiety, sleep, focus; can also contribute to development of psychosis Cannabis/marijuana information: http_s://bubba.nih. gov/publications/d rugfacts/cannabis- marijuana http_s://www.Kaesu/cannabi n-wqu-bzfilpso-mar ijuana-adhd/ http_s://www.nii. org/Ixsbv-Klyxcz-Q llness/Mental-Heal th-Conditions http_s://psychIddiction.com/depression /hik-bymiodocy-kro vgqpz-le-wcrqjhmon n#treatments http__s://www.nim .nih.gov/health/to pics/mental-health -medications http__s://www.nii .org/About-Mental- Illness/Treatments /Pllyao-Mdpnhy-Vhf ications educated on all medications, benefits, side effects and risk, and educated on depression, anxiety, and ADHD, mood d/o and educated on compliance of medications, metabolic and movement d/o education appointment's, continue therapy discussion with patient about course of treatment and patient instructions. education on serotonin syndrome Discussed and educated pt regarding benzodiazepines are generally not intended for prolonged use and that use can cause tolerance, dependence, depression, and associated memory issues including dementias (this list is not exhaustive). Benzodiazepine use is generally not recommended concurrently with pain medications and/or other controlled substances educated on all medications, benefits, side effects and risk, and educated on depression, anxiety, and ADHD, mood d/o and educated on compliance of medications, metabolic and movement d/o education appointment is, continue therapy discussion with patient about course of treatment and patient instructions. education on serotonin syndrome SSRI/SNRI side effects discussed including but not limited to, gastric upset, nausea, vomiting, diarrhea and/or constipation, weight changes, sexual side effects including loss of libido, increased suicidal thoughts/behaviors in children and young adults, and serotonin syndrome. Second generation antipsychotics (SGAs) have metabolic syndrome issues with weight gain, increase in prolactin, increased waist circumference, increased lipids, and increased glucose. Thus routine monitoring of weight, metabolic labs, etc. is indicated. A general rank ordering of antipsychotics that have the greatest to the least risk of metabolic effects is olanzapine, quetiapine, risperidone, ziprasidone, and aripiprazole. However, weight gain can occur with all of these drugs and considerable variability exists among patients receiving the same drug regarding the risk of metabolic effects. Anti-psychotic agents not only increase the risk of metabolic disorder, they also increase the risk of CVA, akathisia, and movement disorders including EPS or tardive dyskinesia (more common with first generation antipsychotics) and more. Medication Management and Follow-Up - Plan: - Schedule follow-up appointments every 1-3 months to monitor the patient's response to the medication regimen. - Reinforce the importance of avoiding recreational drug use due to potential neurotoxicity and interactions with prescribed medications. 02/04/2024 Other Learning About Low-Fat Eating material was published, Body Mass Index: Care Instructions material was published, Learning About Low-Carbohydrate Diets material was published, Learning About Low-Carbohydrate Foods material was published, Cariprazine Oral Capsule (CARIPRAZINE - ORAL) material was published, Bupropion Extended Release Oral Tablet (BUPROPION HCL EXTENDED-RELEASE (ANTIDEPRESSANT) - ORAL) material was published, Duloxetine Delayed Release Oral Capsule 60 mg (DULOXETINE - ORAL) material was published, Buspirone Oral Tablet (BUSPIRONE - ORAL) material was published, Hydroxyzine Oral Tablet (HYDROXYZINE HYDROCHLORIDE - ORAL) material was published, Trazodone Oral Tablet (TRAZODONE - ORAL) material was published presently taking Wellbutrin XL 300 mg daily, Cymbalta 60 mg daily, Vraylar 3 mg daily, Buspar 15 mg three times a day, Vistaril 25 mg three times a day, Trazodone 100 mg bedtime Bipolar AIMS= 0 02/04/24 Vraylar 3 mg daily Anxiety Wellbutrin XL 300 mg daily, Cymbalta 60 mg daily Buspar 15 mg three times a day, Vistaril 25 mg three times a day PTSD- therapy Insomnia Trazodone 100 mg bedtime Cannabis use- Recommend decrease/stop cannabis use as it can negatively impact mood, motivation, anxiety, sleep, focus/concentratio n/memory (vigilance, elasticity, processing and attention); can also contribute to development of psychosis. http_s://www.nimh. nih.gov/health/top ics/mental-health- medications http_s://www.nii. org/Jmoai-Yijwat-P llness/Treatments/ Kaakcq-Hlpjsh-Hggu cations Recommend decrease/stop cannabis use as it may be negatively impacting mood, motivation, anxiety, sleep, focus; can also contribute to development of psychosis Cannabis/marijuana information: http_s://bubba.nih. gov/publications/d rugfacts/cannabis- marijuana http_s://www.Kaesu/cannabi d-jen-cjqaawvl-mar ijuana-adhd/ http_s://www.nii. org/Cgwvb-Qukzmr-O llness/Mental-Heal th-Conditions http_s://psychIddiction.com/depression /syj-fqiwkulsc-gbv pswwg-vg-pxqzoilmg n#treatments http__s://www.nim .nih.gov/health/to pics/mental-health -medications http__s://www.nii .org/About-Mental- Illness/Treatments /Zsdbug-Byzqcp-Hey ications educated on all medications, benefits, side effects and risk, and educated on depression, anxiety, and ADHD, mood d/o and educated on compliance of medications, metabolic and movement d/o education appointment's, continue therapy discussion with patient about course of treatment and patient instructions. education on serotonin syndrome Discussed and educated pt regarding benzodiazepines are generally not intended for prolonged use and that use can cause tolerance, dependence, depression, and associated memory issues including dementias (this list is not exhaustive). Benzodiazepine use is generally not recommended concurrently with pain medications and/or other controlled substances educated on all medications, benefits, side effects and risk, and educated on depression, anxiety, and ADHD, mood d/o and educated on compliance of medications, metabolic and movement d/o education appointment is, continue therapy discussion with patient about course of treatment and patient instructions. education on serotonin syndrome SSRI/SNRI side effects discussed including but not limited to, gastric upset, nausea, vomiting, diarrhea and/or constipation, weight changes, sexual side effects including loss of libido, increased suicidal thoughts/behaviors in children and young adults, and serotonin syndrome. Second generation antipsychotics (SGAs) have metabolic syndrome issues with weight gain, increase in prolactin, increased waist circumference, increased lipids, and increased glucose. Thus routine monitoring of weight, metabolic labs, etc. is indicated. A general rank ordering of antipsychotics that have the greatest to the least risk of metabolic effects is olanzapine, quetiapine, risperidone, ziprasidone, and aripiprazole. However, weight gain can occur with all of these drugs and considerable variability exists among patients receiving the same drug regarding the risk of metabolic effects. Anti-psychotic agents not only increase the risk of metabolic disorder, they also increase the risk of CVA, akathisia, and movement disorders including EPS or tardive dyskinesia (more common with first generation antipsychotics) and more. Medication Management and Follow-Up - Plan: - Schedule follow-up appointments every 1-3 months to monitor the patient's response to the medication regimen. - Reinforce the importance of avoiding recreational drug use due to potential neurotoxicity and interactions with prescribed medications. Plan Of Treatment Medication Medication Name Sig Start Date Stop Date Notes buPROPion HCl ER (XL) 300 MG 1 tablet ev ean morning Oral Once a day for 90 days hydrOXYzine HCl 25 MG 1 tablet Oral thre e times a day for 90 days 08/26/2023 busPIRone HCl 15 MG 1 tablet Oral three times a day for 90 days 08/26/2023 05/04/2024 traZODone HCl 100 MG 1 tablet at bedtime Oral Once a day for 90 days 08/26/2023 Vraylar 3 mg take one capsule luiz ly Oral bedtime for 90 days 08/26/2023 DULoxetine HCl 60 MG 1 capsule Oral Once a day for 90 days 08/26/2023 Treatment Notes Assessment Notes Marijuana use Marijuana Use: Care Instructions material was published, Learning About Cannabis Use Disorder material was published Other Learning About Low-F at Eating material was published, Body Mass Index: Care Instructions material was published, Learning About Low-Carbohydrate Diets material was published, Learning About Low-Carbohydrate Foods material was published, Cariprazine Oral Capsule (CARIPRAZINE - ORAL) material was published, Bupropion Extended Release Oral Tablet (BUPROPION HCL EXTENDED-RELEASE (ANTIDEPRESSANT) - ORAL) material was published, Duloxetine Delayed Release Oral Capsule 60 mg (DULOXETINE - ORAL) material was published, Buspirone Oral Tablet (BUSPIRONE - ORAL) material was published, Hydroxyzine Oral Tablet (HYDROXYZINE HYDROCHLORIDE - ORAL) material was published, Trazodone Oral Tablet (TRAZODONE - ORAL) material was published Next Appt Details Follow Up: 3 Months, Reason: f/u rx Provider Name:Elissa Lantigua , 08/04/2024 04:15:00 PM, [address] [facility], [facility] [address], [place], [address], Progress Notes * LESLY PAYNE MDOB:[birth year] (48 yo F)Acc No.[id number]:02/04/2024 Patient: LESLY PINEDA Provider: BAILEY MCDOWELL :1975 A ge:48 Y S ex:Female Date:02/04/2024 Address:[facility] [address], [id number] Pcp:Joel Dominique Subjective: * Chief Complaints: * 1 . F/u rx need refills. * HPI: D epression Screening: CHOLO-7 (2018 Edition) F eeling nervous, anxious, or on edge?More than half the days, N ot being able to stop or control worrying S everal days,?Worrying too much about different things S everal days, T rouble relaxing M ore than half the days, B eing so restless that it is hard to sit still S everal days, B ecoming easily annoyed or irritable N ot at all, F eeling afraid as if something awful might happen Several days, T otal CHOLO-7 Score 8 , I f you checked any problems, how difficult have they made it for you to do your work, take care of things at home, or get along with other people??Somewhat difficult, I nterpretation of Total ( 5 to 9) Mild. 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 motivation and interest ok and has not been good ever, energy blah, thyroid rx may help, and concentration and focus do ok, I sometimes have issues but better than it was,? Denies SI/HI no plans or intent no thoughts harm to self or others, past attempts 2-3 times, OD, [facility] [place] SI thoughts and depression, and as child hospital, - sister, mother - attempts, no self cutting or self harm, weapons- guns locked up ETOH- occasional smoking- denies labs- 2023 drugs- Occasional cannabis at night presently taking Wellbutrin XL 300 mg daily, Cymbalta 60 mg daily, Vraylar 3 mg daily, Buspar 15 mg three times a day, Vistaril 25 mg three times a day, Trazodone 100 mg bedtime rx hx Wellbutrin XL 300 mg daily, Cymbalta 60 mg daily, Vraylar 3 mg daily, Buspar 15 mg three times a day, Vistaril 25 mg three times a day, Trazodone 100 mg bedtime, [place], Zoloft, Prozac,. C [place]-Suicide Severity Rating Scale: Suicide Risk (CSRS-screener) i n the past one month Have you wished you were or wished you could go to sleep and not wake up? N o, i n the past one month Have you actually had any thoughts of killing yourself? N o, H ave you ever done anything, started to do anything, or prepared to do anything to end your life? N o. D epression screening: PHQ-9 L ittle interest or pleasure in doing things M ore than half the days, F eeling down, depressed, or hopeless M ore than half the days, T rouble falling or staying asleep, or sleeping too much M ore than half the days, F eeling tired or having little energy M ore than half the days, P oor appetite or overeating N early every day, F eeling bad about yourself or that you are a failure, or have let yourself or your family down S everal days, T rouble concentrating on things, such as reading the newspaper or watching television N early every day, M oving or speaking so slowly that other people could have noticed; or the opposite, being so fidgety or restless that you have been moving around a lot more than usual S everal days, T houghts that you would be better off or of hurting yourself in some way N ot at all, T otal Score 1 6, I nterpretation M oderately Severe Depression. I ntervention D epression Screening Findings P ositve, F ollow-Up for Depression M anagement of mental health treatment, S uicide Risk Assessment Performed , A dditional Evaluation for Depression P sychiatric interview and evaluation, N nancy of the standardized tool used for adult depression screening: [facility] (PHQ-9). * ROS: r eports n o shortness of breath when walking but reports no chest pain, no arm pain on exertion, no shortness of breath when lying down, no palpitations, no known heart murmur, and no ankle swelling; no cough. r eports no abdominal pain, daily nausea, no vomiting, no constipation, normal appetite, no diarrhea, and no GERD; . hx anorexia and binge- stable r eports headaches and no migraines but reports no loss of consciousness, no weakness, no numbness, no seizures, no dizziness, no tremor, no gait dysfunction, and no paralysis. r eports s leep disturbances restless sleep, and no memory loss b ut reports depression, feeling safe in a relationship, no alcohol abuse, anxiety, no hallucinations, no suicidal thoughts, no mood swings, no agitation, r eports f atigue. report dry mouth reports no fever, no significant weight gain, and no significant weight loss. r eports wears glasses/contact lenses. reports no incontinence, no difficulty urinating, no hematuria, and no increased frequency. r eports no muscle aches, no muscle weakness, no arthralgias/joint pain, no back pain, no swelling in the extremities, no neck pain, and no difficulty walking. * Medical History: Maikol forte: Akathisia, Chronic post-traumatic stress disorder, Dissociative disorder, Eating disorder, Electronic cigarette user, Generalized anxiety disorder, Insomnia disorder 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 disorder, Long-term drug therapy, Mild recurrent major depression, Moderate recurrent major depression, Primary insomnia, Severe recurrent major depression without psychotic features, Vitamin D deficiency, ,. * Social History: T obacco Use: T obacco Control (Standard) T obacco use: F ormer smoker. M igrated Social History: M igrated Social History: Alcohol Intake: None 09/07/2020,Tobacco Years: Former smoker 06/02/2022,Smoking Status: 10 04/30/2023. * Medications: T aking DULoxetine HCl 60 MG Capsule Delayed Release Particles 1 capsule Oral Once a day , Taking Diclofenac Sodium 1% Gel Transdermal , Taking Qvar RediHaler 80 MCG/ACT Aerosol Breath Activated Inhalation , Taking ProAir HFA 108 (90 Base) MCG/ACT Aerosol Solution Inhalation , Taking Vraylar 3 mg Capsule take one capsule daily Oral bedtime , Taking busPIRone HCl 15 MG Tablet 1 tablet Oral three times a day , Taking hydrOXYzine HCl 25 MG Tablet Oral , Taking Liothyronine Sodium 5 MCG Tablet Oral , Taking Progesterone Micronized 100 MG Capsule Oral , Taking traZODone HCl 100 MG Tablet 1 tablet at bedtime Oral Once a day , Taking Tirosint 50 mcg Capsule Oral , Taking buPROPion HCl ER (XL) 300 MG Tablet Extended Release 24 Hour 1 tablet every morning Oral Once a day APPOINTMENT NEEDED FOR REFILLS, Not-Taking Sucralfate 1 GM Tablet Oral , Not-Taking Minipress 1 mg Capsule Oral , Not-Taking Xifaxan 550 MG Tablet Oral , Not-Taking SOLIFENACIN 5 MG TABLET , Notes to Pharmacist: *Reorder from Artimi for eRx and Interaction Alerts*, Not-Taking Amitiza 8 MCG Capsule Oral , Not-Taking SUMAtriptan Succinate 50 MG Tablet Oral , Not-Taking busPIRone HCl 5 MG Tablet Oral , Not-Taking Cyanocobalamin 1000 MCG/ML Solution Injection , Not- Taking Dicyclomine HCl 10 MG Capsule Oral , Not-Taking HYDROcodone-Acetaminophen 5-325 MG Tablet Oral , Not-Taking DODEX 1,000 MCG/ML INJECTION SOLUTION , Notes to Pharmacist: *Reorder from Artimi for eRx and Interaction Alerts*, Not-Taking Proctozone-HC 2.5 % Cream Rectal , Not-Taking Tranexamic Acid 650 MG Tablet Oral , Not-Taking Ergocalciferol 1.25 MG (88844 UT) Capsule Oral , Not-Taking Levothyroxine Sodium 25 MCG Tablet Oral , Not-Taking 16.2-0.1037 -0.0194 mg Tablet Oral , Notes to Pharmacist: *Pick strength-form from Artimi for eRX*, Not-Taking Prazosin HCl 1 MG Capsule Oral , Not-Taking Cyclobenzaprine HCl 10 MG Tablet Oral , Discontinued buPROPion HCl ER (XL) 150 MG Tablet Extended Release 24 Hour Oral , Medication List reviewed and reconciled with the patient * Allergies: N .K.D.A. Objective: * Vitals: B P:128/82mm Hg, HR:85/min, Wt:167.4lbs, Wt-k.93 kg, Ht: 65.00 in, Ht-cm: 165.10 cm, BMI:27.85Index, Body Surface Area: 1.86. * Examination: P sychiatry: Appearance: w ell-groomed, well-nourished, appears stated age. Abnormal body movements: n one. Affect / mood: a ppropriate, full range. Aggression: l ow. Anger control: g ood. Attention: g ood. Attitude: c ooperative. Homicidal ideation: n one. Suicidal ideation: n one. Memory status: n o impairment noted. Degree of awareness of surroundings: w ithin normal limits.? Delusions: n o. Hallucinations: n o. Impulse control: g ood. Insight: g ood. Intellectual functioning: a verage. Comprehension - Intellectual function: a verage. Judgement: g ood. Orientation: a wake, alert and oriented x 3. Perceptual disorders: n o perceptual disorder noted. Psychomotor activity: w ithin normal range. Sexual impulse control: g ood. Speech / language: a ppropriate pitch/modulation, clear and coherent, normal rate, volume, and articulation (RVR), proper grammar used. Thought content: a ppropriate. Thought process: i ntact. Assessment: * Assessment: 1. B ipolar disorder, current episode depressed, mild - F31.31 (Primary) 2 .?Generalized anxiety disorder - F41.1 3 . P ost-traumatic stress disorder, chronic - F43.12 4 . I nsomnia due to other mental disorder - F51.05 5. O ther chcf (current) drug therapy - Z79.899 6 . M arijuana use - F12.90 presently taking Wellbutrin XL 300 mg daily, Cymbalta 60 mg daily, Vraylar 3 mg daily, Buspar 15 mg three times a day, Vistaril 25 mg three times a day, Trazodone 100 mg bedtime Bipolar AIMS= 0 02/04/24 Vraylar 3 mg daily Anxiety Wellbutrin XL 300 mg daily, C ymbalta 60 mg daily B uspar 15 mg three times a day, Vistaril 25 mg three times a day PTSD- therapy Insomnia Trazodone 100 mg bedtime Cannabis use- Recommend decrease/stop cannabis use as it can negatively impact mood, motivation, anxiety, sleep, focus/concentration/memory (vigilance, elasticity, processing and attention); can also contribute to development of psychosis. http_s://www.nimh.nih.gov/health/topics/ifbdru-ctqnyw-vbnzjnceqvf http_s://www.nii.org/Zdkru-Ewbrlh-Mahvfqy/Treatments/Ogtmom-Vmhdzz-Wplwwizvabm Recommend decrease/stop cannabis use as it may be negatively impacting mood, motivation, anxiety, sleep, focus; can also contribute to development of psychosis Cannabis/marijuana information: http_s://bubba.nih.gov/publications/drugfacts/cannabis-marijuana http_s://www.[employer]/tlpdqywl-rkr-znnufbfp-marijuana-adhd/ http_s://www.nii.org/Smxet-Tmwnoh-Ubvxqzw/Holuoy-Piwqsd-Ooiidaalds http_s://psychcentral.com/depression/afz-ylvmmwfgu-raiqsbwj-of-depression#treatm ents http__s://www.nimh.nih.gov/health/topics/qabdco-rmrfbg-wwwoeoepcez http__s://www.nii.org/Pjzub-Xzmoda-Mpzkdqz/Treatments/Eovalb-Duestt-Vyoffzqxxar educated on all medications, benefits, side effects and risk, and educated on depression, anxiety, and ADHD, mood d/o and educated on compliance of medications, metabolic and movement d/o education appointment's, continue therapy discussion with patient about course of treatment and patient instructions. education on serotonin syndrome Discussed and educated pt regarding benzodiazepines are generally not intended for prolonged use and that use can cause tolerance, dependence, depression, and associated memory issues including dementias (this list is not exhaustive). Benzodiazepine use is generally not recommended concurrently with pain medications and/or other controlled substances educated on all medications, benefits, side effects and risk, and educated on depression, anxiety, and ADHD, mood d/o and educated on compliance of medications, metabolic and movement d/o education appointment is, continue therapy discussion with patient about course of treatment and patient instructions. education on serotonin syndrome SSRI/SNRI side effects discussed including but not limited to, gastric upset, nausea, vomiting, diarrhea and/or constipation, weight changes, sexual side effects including loss of libido, increased suicidal thoughts/behaviors in children and young adults, and serotonin syndrome. Second generation antipsychotics (SGAs) have metabolic syndrome issues with weight gain, increase in prolactin, increased waist circumference, increased lipids, and increased glucose. Thus routine monitoring of weight, metabolic labs, etc. is indicated. A general rank ordering of antipsychotics that have the greatest to the least risk of metabolic effects is olanzapine, quetiapine, risperidone, ziprasidone, and aripiprazole. However, weight gain can occur with all of these drugs and considerable variability exists among patients receiving the same drug regarding the risk of metabolic effects. Anti-psychotic agents not only increase the risk of metabolic disorder, they also increase the risk of CVA, akathisia, and movement disorders including EPS or tardive dyskinesia (more common with first generation antipsychotics) and more. Medication Management and Follow-Up - Plan: - Schedule follow-up appointments every 1-3 months to monitor the patient's response to the medication regimen. - Reinforce the importance of avoiding recreational drug use due to potential neurotoxicity and interactions with prescribed medications. Plan: * Treatment: 2. G eneralized anxiety disorder Refill DULoxetine HCl Capsule Delayed Release Particles, 60 MG, 1 capsule, Oral, Once a day, 90 days, 90 Capsule, Refills 0; R efill busPIRone HCl Tablet, 15 MG, 1 tablet, Oral, three times a day, 90 days, 270, Refills 0; R efill hydrOXYzine HCl Tablet, 25 MG, 1 tablet, Oral, three times a day, 90 days, 270 Tablet, Refills 0. 3. I nsomnia due to other mental disorder Refill traZODone HCl Tablet, 100 MG, 1 tablet at bedtime, Oral, Once a day, 90 days, 90, Refills 0.? 4. M arijuana use Notes: Marijuana Use: Care Instructions material was published, Learning About Cannabis Use Disorder material was published 5. O thers Notes: Learning About Low-Fat Eating material was published, Body Mass Index: Care Instructions material was published, Learning About Low-Carbohydrate Diets material was published, Learning About Low-Carbohydrate Foods material was published, Cariprazine Oral Capsule (CARIPRAZINE - ORAL) material was published, Bupropion Extended Release Oral Tablet (BUPROPION HCL EXTENDED-RELEASE (ANTIDEPRESSANT) - ORAL) material was published, Duloxetine Delayed Release Oral Capsule 60 mg (DULOXETINE - ORAL) material was published, Buspirone Oral Tablet (BUSPIRONE - ORAL) material was published, Hydroxyzine Oral Tablet (HYDROXYZINE HYDROCHLORIDE - ORAL) material was published, Trazodone Oral Tablet (TRAZODONE - ORAL) material was published * Procedure Codes: 9 6127 BEHAV ASSMT W/SCORE & DOCD/STAND INSTRUMENT, 89594 BEHAV ASSMT W/SCORE & DOCD/STAND INSTRUMENT, G2211 VISIT COMPLEXITY INHERENT TO ONGOING CARE RELATED TO A PATIENT'S SINGLE, SERIOUS CONDITION OR A COMPLEX CONDITION, 05314 PSYCL/NRPSYC TST AUTO RESULT * Follow Up: 3 Months (Reason: f/u rx) * Billing Information: * Visit Code: 32745 OFFICE OUTPATIENT VISIT 25 MINUTES DETAILED HISTORY AND EXAM/MODERATE MEDICAL DECISION MAKING. * Procedure Codes: 26909 BEHAV ASSMT W/SCORE & DOCD/STAND INSTRUMENT. 25148 BEHAV ASSMT W/SCORE & DOCD/STAND INSTRUMENT. G2211 VISIT COMPLEXITY INHERENT TO ONGOING CARE RELATED TO A PATIENT'S SINGLE, SERIOUS CONDITION OR A COMPLEX CONDITION. 66827 PSYCL/NRPSYC TST AUTO RESULT. * Sign off status: Completed true * Provider: BAILEY MCDOWELL Date: Generated for Nilsa monaco/Justin/Jackson on: 0 2024 02:35 PM CDT History and Physical Notes * HPI (History of Present Illness) Category Sub-Category Detail Notes Category Not es Depression screening PHQ-9 Little inte rest or pleasure in doing things: More than half the days Feeling down, depressed, or hopeless: Mo re than half the days Trouble falling or staying a sleep, or sleeping too much: More than half the days Feeling tired or having little energy: M ore than half the days Poor appetite or overeating: Nearly ever y day Feeling bad about yourself o r that you are a failure, or have let yourself or your family down: Several days Trouble concentrating on thi ngs, such as reading the newspaper or watching television: Nearly every day Moving or speaking so slowly that other people could have noticed; or the opposite, being so fidgety or restless that you have been moving around a lot more than usual: Several days Thoughts that you would be b rosana off or of hurting yourself in some way: Not at all Total Score: 16 Interpretation: Moderately Severe Depres jason Intervention Depression Screening Findings: P ositve Follow-Up for Depression: Management of mental health treatment Suicide Risk Assessment Performed: Additional Evaluation for De pression: Psychiatric interview and evaluation Name of the standardized too l used for adult depression screening:: Patient Health Questionnaire (PHQ-9) Depression Screening CHOLO-7 (2018 Edition) Feeling nervous, anxious, or on edge: More than half the days follow up Bipolar depression, anxiety, chronic since last visit reported I been doing ok I ran out Wellbutrin 1 week and been more anxious and leg shakes and other than that fine I had tough things went though and handle it and no SI thoughts I feel little sad and down and unsure if ran out rx or things going on in life, parents things and marriage thigns nothing serious, no hopeless or helpless just sometimes, I feel little fidgety since off Wellbutrin and little restless, I am little anxious, sleep ok I try to sleep too much but not able r/t work and job going good, [employer]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 motivation and interest ok and has not been good ever, energy blah, thyroid rx may help, and concentration and focus do ok, I sometimes have issues but better than it was, Denies SI/HI no plans or intent no thoughts harm to self or others, past attempts 2-3 times, OD, [facility] [place] SI thoughts and depression, and as child hospital, FH - sister, mother - attempts, no self cutting or self harm, weapons- guns locked up ETOH- occasional smoking- denies labs- 2023 drugs- Occasional cannabis at night presently taking Wellbutrin XL 300 mg daily, Cymbalta 60 mg daily, Vraylar 3 mg daily, Buspar 15 mg three times a day, Vistaril 25 mg three times a day, Trazodone 100 mg bedtime rx hx Wellbutrin XL 300 mg daily, Cymbalta 60 mg daily, Vraylar 3 mg daily, Buspar 15 mg three times a day, Vistaril 25 mg three times a day, Trazodone 100 mg bedtime, [place], Zoloft, Prozac, Not being able to stop or control worryi ng: Several days Worrying too much about different things : Several days Trouble relaxing: More than half the day s Being so restless that it is hard to sit still: Several days Becoming easily annoyed or irritable: No t at all Feeling afraid as if something awful tom ht happen: Several days Total CHOLO-7 Score: 8 If you checked any problems, how difficult have they made it for you to do your work, take care of things at home, or get along with other people?: Somewhat difficult Interpretation of Total: (5 to 9) Mild [place]-Suicide Severity Rating Scale Suicide Risk (CSRS-screener) in the past one month Have you wished you were or wished you could go to sleep and not wake up?: No in the past one month Have y ou actually had any thoughts of killing yourself?: No Have you ever done anything, started to do anything, or prepared to do anything to end your life?: No Examination Category Sub-Category Detail Notes Category Not es Psychiatry Appearance: well-groomed, we ll-nourished, appears stated age Attitude: cooperative Psychomotor activity: within normal rang e Abnormal body movements: none Attention: good Degree of awareness of surroundings: wit hin normal limits Orientation: awake, alert and benedicto ented x 3 Affect / mood: appropriate, full ra nge Speech / language: appropriate pitch/mo dulation, clear and coherent, normal rate, volume, and articulation (RVR), proper grammar used Insight: good Judgement: good Thought process: intact Thought content: appropriate Perceptual disorders: no perceptual diso rder noted Aggression: low Anger control: good Suicidal ideation: none Homicidal ideation: none Intellectual functioning: average Impulse control: good Sexual impulse control: good Memory status: no impairment noted Delusions: no Hallucinations: no Comprehension - Intellectual function: a verage
--- OUTSIDE RECORDS SUMMARY | 2024-07-17 14:35 | XMS_ITS | Encounter Summary ---
Author Organization [employer] Address 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 Gender Identity Not on file Sexual Orientation Not on file documented as of this encounter Plan of Treatment Not on file documented as of this encounter Procedures Procedure Name Priority Date/Time Associated Diagnosis Comments US OB LTD 1 OR MORE FETUSES Timed Study 09/25/2008 3:33 PM CDT US OB LTD 1 OR MORE FETUSES Timed Study 09/12/2008 8:48 AM CDT US OB LTD 1 OR MORE FETUSES Timed Study 08/30/2008 10:34 AM CDT documented in this encounter Results * US OB LTD 1 OR MORE FETUSES (09/25/2008 3:33 PM CDT) Anatomical Region Laterality Modality Pelvis Other Narrative 09/25/2008 3:33 PM CDT FINAL - Order Information Only Procedure Note Victor M De La Rosa, RN - 05/21/2015 FINAL - Order Information Only Result Cleveland Mcmahon MD US ORDERABLES Final Result * US OB LTD 1 OR MORE FETUSES (09/12/2008 8:48 AM CDT) Anatomical Region Laterality Modality Pelvis Other Narrative 09/12/2008 8:48 AM CDT FINAL - Order Information Only Procedure Note Victor M De La Rosa, RN - 05/21/2015 FINAL - Order Information Only Result Cleveland Mcmahon MD US ORDERABLES Final Result * US OB LTD 1 OR MORE FETUSES (08/30/2008 10:34 AM CDT) Anatomical Region Laterality Modality Pelvis Other Narrative 08/30/2008 10:34 AM CDT FINAL - Order Information Only Procedure Note Victor M De La Rosa, RN - 05/21/2015 FINAL - Order Information Only Result Cleveland Mcmahon MD US ORDERABLES Final Result documented in this encounter Visit Diagnoses Diagnosis Triplet , antepartum documented in this encounter
--- OUTSIDE RECORDS SUMMARY | 2024-07-17 14:35 | XMS_ITS | Encounter Summary ---
Author Organization [email or web address] Address 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 Gender Identity Not on file Sexual Orientation Not on file documented as of this encounter Plan of Treatment Not on file documented as of this encounter Procedures Procedure Name Priority Date/Time Associated Diagnosis Comments US OB LTD 1 OR MORE FETUSES Timed Study 10/23/2008 8:44 AM CDT US OB LTD 1 OR MORE FETUSES Timed Study 10/09/2008 10:28 AM CDT documented in this encounter Results * US OB LTD 1 OR MORE FETUSES (10/23/2008 8:44 AM CDT) Anatomical Region Laterality Modality Pelvis Other Narrative 10/23/2008 8:44 AM CDT FINAL - Order Information Only Procedure Note Victor M De La Rosa, NASREEN - 05/21/2015 FINAL - Order Information Only us Bailey Mcmahon MD US ORDERABLES Final Result * US OB LTD 1 OR MORE FETUSES (10/09/2008 10:28 AM CDT) Anatomical Region Laterality Modality Pelvis Other Narrative 10/09/2008 10:28 AM CDT FINAL - Order Information Only Procedure Note Victor M De La Rosa RN - 05/21/2015 FINAL - Order Information Only us Bailey Mcmahon MD US ORDERABLES Final Result documented in this encounter Visit Diagnoses Diagnosis Triplet , antepartum documented in this encounter
--- OUTSIDE RECORDS SUMMARY | 2024-07-17 14:35 | XMS_ITS | Data Portability ---
Author Organization [facility] Address [address] [facility] [address] [place] [address] Assessment No assessment recorded. Plan of Treatment Reminders Order Date Submit Date Provider Last Modified By Organization Details Last Modified Time Details Appointments None record ed. Lab None record ed. Referral None record ed. Procedures None record ed. Surgeries None record ed. Imaging None record ed. Medication Orders None record ed. Patient TargetsNo targets recorded. Patient Instructions Encounter Date Encounter Id Patient Instructions Last Modified By Organization Details Last Modified Time 09/30/2023 [id number] Patient did not show up for the appointment. The team attempted to reach the patient and she did not respond. I waited online for the patient for 7 minutes. Patient services team notified. [email or web address] Not available 09/30/2023 10:37:39 Reason for Referral None Reported. Medical Equipment None Reported. Vitals None Recorded Social History None recorded. Functional Status None recorded. Mental Status None recorded. Family History Nothing Reported. Medical History No medical history recorded. Gynecological HistoryNo gynecological history recorded. Obstetrics History GPAL:G 0 P 0 0 0 0 Past Encounters Encounter ID Performer Location Encounter Start Date Encounter Closed Date Diagnosis/Indication Diagnosis SNOMED-CT Code Diagnosis ICD10 Code Diagnosis Note [id number] [place] [address] [place] [address] 09/30/2023 10:10:21 09/30/2023 11:51:57 Health Concerns Section Related Observation LastModified by Organization Deyanira hoffman LastModified Time None Recorded Concern Status LastModified by Organization Details LastModified Time None Recorded Advance Directives Directive None Recorded Payers Encounter Date Sequence Insurance Name Policy Number Policy Vicente Covered Member ID Vicente Member ID Guarantor Name 09/30/2023 1 *SELF PAY* Li sa Lovely OBGyn Episode No OBEpisode recorded.
--- OUTSIDE RECORDS SUMMARY | 2024-07-17 14:35 | XMS_ITS | Encounter Summary ---
Author Organization [facility] Address [address] [place] [address] Care Team Providers Care Multi Slide Machine Tender Name Role Phone Junaid Lopez MD Primary Care Provider [phone] Encounter Details Date Type Department Care Team (Late st Contact Info) Description 04/06/2022 Immunization [facility] [address] [place] [address] Wilbur Rebollar MA Social History Tobacco Use Types Packs/Day Years Used Date Smoking Tobacco: Former Cigarettes Smokeless Tobacco: Never Sex and Gender Information Value Date Recorded Sex Assigned at Not on file Gender Identity Not on file Sexual Orientation Not on file documented as of this encounter Plan of Treatment Not on file documented as of this encounter Visit Diagnoses Not on filedocumented in this encounter Care Teams Multi Slide Machine Tender Relationship Specialty Start Date End Date Junaid Lopez MD [address] [place] [address] PCP - General Family Medicine 06/27/17 documented as of this encounter
--- OUTSIDE RECORDS SUMMARY | 2024-07-17 14:35 | XMS_ITS | Encounter Summary ---
Author Organization [employer] Address 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 Gender Identity Not on file Sexual Orientation Not on file documented as of this encounter Plan of Treatment Not on file documented as of this encounter Procedures Procedure Name Priority Date/Time Associated Diagnosis Comments HEMOGLOBIN AND HEMATOCRIT Stat 12/07/2008 9:48 AM CDT PATHOLOGY Routine 12/05/2008 5:00 PM CDT CBC WITH DIFFERENTIAL Stat 12/05/2008 12:05 PM CDT TYPE AND SCREEN Routine 12/05/2008 12:04 PM CDT documented in this encounter Results * (ABNORMAL) HEMOGLOBIN AND HEMATOCRIT (12/07/2008 9:48 AM CDT) HEMATOCRIT 33.0(L) 35.5 - 44.0 % [facility] HEMOGLOBIN 10.5(L) 11.8 - 14.8 g/dL [facility] Blood specimen (specimen) 12/07/2008 9:48 AM CDT 12/07/2008 9:55 AM CDT us Bailey Mcmahon MD HEMATOLOGY ORDERABLES Final Resu lt [facility] CLIA# [id number] [address] [place] [address] * PATHOLOGY (12/05/2008 5:00 PM CDT) FINAL REPORT [facility] [address], [place] [address] Patient: ELIAZBET PAYNE : 1975 Procedure Date: 12/05/2008 Accession Date: 12/06/2008 Case No: [id number] Ordering Dr: DILAN PADRON A Case type SW is performed by [place], [place]; all other case types are performed by [facility], [place], [place] SURGICAL PATHOLOGY & NON-GYNECOLOGIC CYTOPATHOLOGY REPORT DIAGNOSIS MEMBRANES AND UMBILICAL CORD, BABY-1, SECTION: - NO SIGNIFICANT HISTOPATHOLOGIC ABNORMALITIES. UMBILICAL CORD, BABY-2, SECTION: - VELAMENTOUS INSERTION. MEMBRANES, BABY-2, SECTION: - NO SIGNIFICANT HISTOPATHOLOGIC ABNORMALITIES. PLACENTA, BABIES 1 AND 2, SECTION: - 738-G DIAMNIONIC, MONOCHORIONIC PLACENTA. - SINGLE SMALL CLUSTER OF FIBROTIC AVASCULAR VILLI (BABIES 1 AND 2). - FOCAL MILD VILLOUS EDEMA (BABY-2). - EOSINOPHILIC VASCULITIS, SINGLE CHORIONIC PLATE VESSEL (BABY-2). UMBILICAL CORD, BABY-3, SECTION: - MARGINAL INSERTION. MEMBRANES, BABY-3, SECTION: - NO SIGNIFICANT HISTOPATHOLOGIC ABNORMALITIES. PLACENTA, BABY-3, SECTION: - 351-G SEPARATE TRIPLET PLACENTA, GROSSLY DISRUPTED. Specimen Description: Placenta, x3-uterus. Operative Procedure: Primary low transverse . Patient Information/Histor y/Diagnosis: Intrauterine at 34-6/7 weeks, triplet gestation. Baby #1 = one cord clamp, baby #2 = two cord clamps, baby #3 = three cord clamps. Gross: Received in one container labeled Elizabet PayneIsaak, placenta and designated no micro are triamnionic, dichorionic triplet placentas. A monochorionic diamnionic placenta is shared by babies 1 (one cord clamp) and 2 (two cord clamps). The dividing membranes are pink-white, thin, and translucent. They do not insert in a prominent fibrin ridge. Cerm-fd-iyam anastomosis is identified with an average diameter of 0.3 cm. The total disk measures 35.2 x 20.0 x 1.3 cm and has a trimmed weight of 738 g. The separate disk has an umbilical cord with three cord clamps. The placental domain corresponding to the single clamped cord measures 23.4 x 19.5 x 1.3 cm. The surface is blue-bogres. The 29.4-cm long x 1.4-cm in diameter attached segment of umbilical cord is eccentrically inserted 5.5 cm from the closest margin, is normally-torsed, and has three vessels. Also received is a 6.1-cm long x 1.5-cm in diameter unattached segment of umbilical cord with one cord clamp. The membranes are pink-yang and translucent. They are marginally inserted and ruptured 7.0 cm from the margin. The maternal surface is complete and intact with no retroplacental hemorrhage. Sectioning of the parenchyma demonstrates a dark burgundy-red, spongy cut surface with no lesions. Bending Frame Operator sections are submitted as follows: A1-umbilical cord and membranes; A2 through A4-placental parenchyma; A5-dividing membranes and T zone. The placental domain corresponding to the double clamped cord measures 20.0 x 14.0 x 1.3 cm. The surface is blue-borges. The 24.4-cm long x 1.3-cm in diameter attached segment of umbilical cord is velamentously inserted 1.5 cm from the disk edge. The membranous vessels appear intact and have an average diameter of 0.3 cm. The cord is normally-torsed and has three vessels. Also received is a 10.5-cm long x 1.6-cm in diameter unattached segment of umbilical cord with two cord clamps. The membranes are pink-yang, thickened, and opaque. There is spongy, pink-yang tissue adherent to the membranes. The membranes are marginally inserted and ruptured 10.0 cm from the margin. The maternal surface is complete and intact with no retroplacental hemorrhage. Bending Frame Operator sections are submitted as follows: B1-umbilical cord and membranes; B2-vessels with the membranes and pink-yang tissue adherent to membranes; B3 and B4-placental parenchyma; B5- fused membranes between domain with two cord clamps and separate disk with three cord clamps. The separate disk with three cord clamps measures 21.0 x 15.0 x 1.0 cm and has a trimmed weight of 351 g. The surface is blue-borges. The 27.0-cm long x 1.7-cm in diameter attached segment of umbilical cord is marginally inserted, is normally-torsed, and has three vessels. Also received is an 11.8-cm long x 2.0-cm in diameter unattached segment of umbilical cord with three cord clamps. The membranes are pink-yang, slightly thickened, and translucent. They are marginally inserted and ruptured 4.1 cm from the margin. The maternal surface is disrupted, but appears complete with no retroplacental hemorrhage. Sectioning of the parenchyma demonstrates a dark burgundy-red, spongy cut surface with no lesions. Bending Frame Operator sections are submitted as follows: C1-umbilical cord and membranes; C2 through C4- placental parenchyma; C5-fused membranes between separate disk with three cord clamps and domain with one cord clamp. [facility] 12.07.2008 01:25 pm Microscopic: The slides are labeled [id number] and Elizabet Payne. These triplets are triamnionic, dichorionic, with babies 1 and 2 sharing a diamnionic, monochorionic placenta. Baby 3's placenta is separate. There are no significant histopathologic abnormalities in baby-1's membranes or umbilical cord. Baby-2's velamentously inserted umbilical cord is histologically unremarkable. There is focal decidual laminar necrosis in baby-2's membranes. The villous territories of babies 1 and 2 are histologically similar, showing mature villi with focal villous vascular congestion. A single small cluster of fibrotic avascular villi is identified in each of the placental territories. In addition, there is focal villous edema in baby 2's placental territory. A single chorionic plate vessel shows eosinophilic vasculitis in baby 2's territory. Baby-3's placental villi are mature and histologically unremarkable. There is focal laminar necrosis in sections of the membranes. The marginally inserted umbilical cord is histologically unremarkable. DJG/GDH 12.11.2008 04:12 pm Staging Form: NO. ELECTRONIC SIGNATURE FOR KARLY FREEMAN M.D.- 12/12/08 07:53 am [facility] 12/05/2008 5:00 PM CDT us Dilan Padron MD PATHOLOGY/CYTOLOGY ORDERABLES Final Result [facility] CLIA# [id number] [address] [facility] [place] [address] * (ABNORMAL) CBC WITH DIFFERENTIAL (12/05/2008 12:05 PM CDT) WBC 10.2(H) 4.0 - 9.8 K/uL [facility] MCH 30.0 27.2 - 32.6 pg [facility] MPV 11.7 9.3 - 12.4 fL [facility] HEMATOCRIT 38.8 35.5 - 44.0 % [facility] RDW-STDEV 49.1(H) 37.1 - 48.7 fL [facility] RBC 4.37 3.90 - 4.90 M/uL [facility] MCHC 33.8 31.5 - 35.5 % [facility] MCV 88.8 82.0 - 99.0 fL [facility] PLATELETS 184 140 - 350 K/uL [facility] HEMOGLOBIN 13.1 11.8 - 14.8 g/dL [facility] RDW 15.3(H) 11.5 - 14.5 % [facility] MONOCYTES 5 3 - 13 % [facility] MONOCYTE ABSOLUTE 0.53 0.10 - 1.30 K/uL [facility] NEUTROPHILS 79(H) 45 - 70 % [facility] NEUTROPHIL ABSOLUTE 8.05(H) 1.90 - 7.00 K/uL [facility] EOSINOPHILS 2 0 - 7 % [facility] EOSINOPHIL ABSOLUTE 0.17 0.00 - 0.70 K/uL [facility] LYMPHOCYTES 14(L) 16 - 45 % [facility] LYMPHOCYTE ABSOLUTE 1.47 0.70 - 4.50 K/uL [facility] BASOPHILS 0 0 - 2 % [facility] BASOPHILS ABSOLUTE 0.02 0.00 - 0.20 K/uL [facility] Blood specimen (specimen) 12/05/2008 12:05 PM CDT 12/05/2008 12:09 PM CDT us Bailey Mcmahon MD HEMATOLOGY ORDERABLES Edited [facility] CLIA# [id number] [address] [facility] [address] * TYPE AND SCREEN (12/05/2008 12:04 PM CDT) HISTORY CHECK No Historical ABO/Rh [facility] ABO/RH TYPE A Positive [facility] SPECIMEN LIFE 3 days from drawdate [facility] ANTIBODY SCREEN Negative [facility] Blood specimen (specimen) 12/05/2008 12:04 PM CDT us Bailey Mcmahon MD BLOOD BANK ORDERABLES Edited INTERFACE SYSTEM Refer to clinic/hospital department [facility] CLIA# [id number] [address] [place] [address] documented in this encounter Visit Diagnoses Not on filedocumented in this encounter
--- OUTSIDE RECORDS SUMMARY | 2024-07-17 14:35 | XMS_ITS | Encounter Summary ---
Author Organization [employer] Address 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 Gender Identity Not on file Sexual Orientation Not on file documented as of this encounter Plan of Treatment Not on file documented as of this encounter Procedures Procedure Name Priority Date/Time Associated Diagnosis Comments US BIOPHYSICAL PROF W NST Timed Study 12/04/2008 7:31 AM CDT US OB LTD 1 OR MORE FETUSES Timed Study 12/04/2008 7:31 AM CDT documented in this encounter Results * US OB LTD 1 OR MORE FETUSES (12/04/2008 7:31 AM CDT) Anatomical Region Laterality Modality Pelvis Other Narrative 12/04/2008 7:31 AM CDT FINAL - Order Information Only Procedure Note Victor M De La Rosa RN - 05/21/2015 FINAL - Order Information Only us Bailey Mcmahon MD US ORDERABLES Final Result * US BIOPHYSICAL PROFILE (12/04/2008 7:31 AM CDT) Anatomical Region Laterality Modality Pelvis Other Narrative 12/04/2008 7:31 AM CDT FINAL - Order Information Only Procedure Note Victor M De La Rosa, NASREEN - 05/21/2015 FINAL - Order Information Only Result Cleveland Mcmahon MD US ORDERABLES Final Result documented in this encounter Visit Diagnoses Diagnosis Triplet , antepartum documented in this encounter
--- OUTSIDE RECORDS SUMMARY | 2024-07-17 14:35 | XMS_ITS | Continuity of Care Document ---
Author Organization [facility] Address [address] [place] [address] Phone Care Team Providers Care Maintenance Scheduler Name Role Phone Ahsli Cruz MD Unavailable Unavailable Allergies, Adverse Reactions, Alerts Substance Reaction Status Criticality No Known Drug Allergies Other Active No I nformation Advance Directives Directive Yes / No Effective Date File Name No Information Encounters Encounter Description Practice Location Reason(s) For Visit Diagnoses Date Provider Providers Copied on Encounter [facility], [address], [place], [place], [address], tel:[phone] [facility] Internal Medicine No Information Apr-2 [address], [place] [address], [place], [place], [address], . tel:[phone] [facility], [address], [place], [place], [address], tel:[phone] [facility] STREP SORE THROATACUTE URI NOSTHROAT PAIN Apr-2 6-200 7 Anthony [address]ius. [address], [address] [facility], [place], [place], [address], [place]. tel:[phone] [facility], [address], [place], [place], [address], tel:[phone] [facility] ACUTE PHARYNGITIS Apr-0 5-200 7 Anthony [address]ius. [address], [address], [place], [place], [address], . tel:[phone] [facility], [address], [place], [place], [address], tel:[phone] [facility] OTITIS MEDIA NOS Sep-0 1-200 6 Anthony Cornelius. [address], [address], [place], [place], [address], [place]. tel:[phone] [facility], [address], [place], [place], [address], [place] tel:[phone] [facility] SCREENING-PULMO NARY TBMED EXAM NEC-ADMIN PURP 3200 6 Anthony Cornelius. [address], [address], [place], [place], [address], [place]. tel:[phone] [facility], [address], [place], [place], [address], [place] tel:[phone] [facility] ALLERGIC RHINITIS NOSACUTE CONJUNCTIVITIS NOS 5 Conversion Doctor. [facility] [place], [address], [place]. [facility], [address], [place], [place], [address], [place] tel:[phone] [facility] ROUTINE MEDICAL EXAM Oct- 2200 4 Conversion Doctor. [address] [place] [address], [address], [place]. [facility], [address], [place], [place], [address], [place] tel:[phone] [facility] MALAISE AND FATIGUE NEC 2 2200 4 Anthony Cornelius. [address], [address], [place], [place], [address], [place]. tel:[phone] [facility], [address], [place], [place], [address], [place] tel:[phone] [facility] LUMP OR MASS IN BREAST Oct-0 8200 4 Lisandro Goncalves. [address] [facility], [place], [place], [address], [place]. tel:[phone] [facility], [address], [place], [place], [address], [place] tel:[phone] [facility] HISTORY OF TOBACCO USETRACHEA/BRON CHUS DIS NEC 4-200 1 Dixie Francis. [address], [address], [place], [address]. tel:[phone] Family History Family Member Type Diagnosis Age At Onset No Information Payers Payer name Insurance type Covered democrat ID Authoriza tion(s) No Information Social History Type Description Quantity Date Captured Comments Alcohol Use Details Unknown Caffeine Use Details Unknown Tobacco Use Status No Information Smoking Status No Information Sex Female Chief Complaint And Reason For Visit No Information Reason For Referral Reason For Referral No Information History Of Present Illness Encounter Date Complaint History Of Prese nt Illness No Information Functional Status Date Functional Assessmen t No Information Instructions Date Instruction Additional Infor mation No Information Assessments Type Assessment Date No Information Patient Care Teams Name Effective Dates (start - stop) Status Members No Information
--- OUTSIDE RECORDS SUMMARY | 2024-07-17 14:35 | XMS_ITS ---
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 Role Phone Brigitte MAURICE, Joel Primary Care Provider Unavailable Elissa Lantigua Unavailable [phone] Allergies No Known Allergies REASON FOR VISIT Follow up Medications Medication SIG (Take, Route, Frequency, Duration) Notes Start Date End Date Status Vraylar 3 mg take one capsule daily Oral bedtime for 90 days Active Tirosint 50 mcg Oral 08/26/2023 Act uzma Sucralfate 1 GM Oral 08/26/2023 Not -Taking buPROPion HCl ER (XL) 300 MG 1 tablet every morning Oral Once a day for 90 days Active traZODone HCl 100 MG 1 tablet at bedtime Oral Once a day for 90 days Active Diclofenac Sodium 1% Transdermal 08/26/2023 Active Qvar RediHaler 80 MCG/ACT Inhalation 08/26/2023 Active ProAir HFA 108 (90 Base) MCG/ACT Inhalation 08/26/2023 Active Liothyronine Sodium 5 MCG Oral 08/26/2023 Active Progesterone Micronized 100 MG Oral 08/26/2023 Active busPIRone HCl 10 MG 1 tablet Orally three times a day for 90 days d/c 15 mg dose 05/05/2024 Active Vraylar 3 mg take one capsule daily Oral bedtime for 90 days Active buPROPion HCl ER (XL) 300 MG 1 tablet every morning Oral Once a day for 90 days Active hydrOXYzine HCl 25 MG 1 tablet Oral three times a day for 90 days Active traZODone HCl 100 MG 1 tablet at bedtime Oral Once a day for 90 days Active DULoxetine HCl 60 MG 1 capsule Oral Once a day for 90 days Active 16.2-0.1037 -0.0194 mg Oral *Pick strength-form from [employer] for eRX* 08/26/2023 Not-Taking Prazosin HCl 1 MG Oral 08/26/2023 N ot-Taking Levothyroxine Sodium 25 MCG Oral 08/26/2023 Not-Taking Cyclobenzaprine HCl 10 MG Oral 08/26/2023 Not-Taking Proctozone-HC 2.5 % Rectal 08/26/2023 Not-Taking Tranexamic Acid 650 MG Oral 08/26/2023 Not-Taking HYDROcodone-Acetamino phen 5-325 MG Oral 08/26/2023 Not-Taking DODEX 1,000 MCG/ML INJECTION SOLUTION *Reorder from [employer] for eRx and Interaction Alerts* 08/26/2023 Not-Taking Ergocalciferol 1.25 MG (34800 UT) Oral 08/26/2023 Not-Taking Cyanocobalamin 1000 MCG/ML Injection 08/26/2023 Not-Taking Dicyclomine HCl 10 MG Oral 08/26/2023 Not-Taking SUMAtriptan Succinate 50 MG Oral 08/26/2023 Not-Taking busPIRone HCl 5 MG Oral 08/26/2023 Not-Taking Amitiza 8 MCG Oral 08/26/2023 Not-T aking Minipress 1 mg Oral 08/26/2023 Not- Taking Xifaxan 550 MG Oral 08/26/2023 Not- Taking SOLIFENACIN 5 MG TABLET *Reorder from [employer] for eRx and Interaction Alerts* 08/26/2023 Not-Taking Social History Tobacco Use: Social History Observation Description Date Details (start date - stop date) Former Smoker NA - NA Sex Assigned At : Social History Observation Description Sex Assigned At Female Tobacco Control (Standard) Question Answer Notes Tobacco use: Former smoker Vital Signs Blood pressure systolic 124 mm Hg 05/05/19 25 Blood pressure diastolic 83 mm Hg 025 Heart Rate 84 /min 05/05/2024 Weight 165.4 lbs 05/05/2024 Weight-kg 75.02 kg 05/05/2024 Height 65.00 in 05/05/2024 Height-cm 165.10 cm 05/05/2024 BMI 27.52 kg/m2 05/05/2024 Encounters Encounter Location Date Provider Diagnosis [facility] [employer] [address] [place] [address] 05/05/2024 Elissa Lantigua Bipolar disorder, current episode depressed, mild F31.31 ; Generalized anxiety disorder F41.1 ; Post-traumatic stress disorder, chronic F43.12 ; Insomnia due to other mental disorder F51.05 ; 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 and Marijuana use F12.90 Assessments Encounter Date Diagnosis (ICD Code) Assessment Notes Treatment Notes Treatment Clinical Notes Section Notes 05/05/2024 Bipolar disorder, current episode depressed, mild (ICD-10 - F31.31) presently taking Wellbutrin XL 300 mg daily, Cymbalta 60 mg daily, Vraylar 3 mg daily, Buspar 15 mg three times a day, Vistaril 25 mg three times a day, Trazodone 100 mg bedtime patient would like to try GDR rx , feel better and stable and also on thyroid rx helps Bipolar AIMS= 0 02/04/24 Vraylar 3 mg daily Anxiety Wellbutrin XL 300 mg daily, Cymbalta 60 mg daily Will decrease Buspar 10 mg three times a day, Vistaril 25 mg three times a day PTSD- therapy Insomnia Trazodone 100 mg bedtime Cannabis use- patient reported stopped Recommend decrease/stop cannabis use as it can negatively impact mood, motivation, anxiety, sleep, focus/concentratio n/memory (vigilance, elasticity, processing and attention); can also contribute to development of psychosis. http_s://www.nimh. nih.gov/health/top ics/mental-health- medications http_s://www.nii. org/Urffd-Ugfdam-F llness/Treatments/ Tfdptr-Dgzvyg-Relc cations Cannabis/marijuana information: http_s://bubba.nih. gov/publications/d rugfacts/cannabis- marijuana http_s://www.[employer]/cannabi d-vgc-ihnuabbd-mar ijuana-adhd/ http_s://www.nii. org/Acgum-Mnzrsr-G llness/Mental-Heal th-Conditions http_s://psychcent Acronis.com/depression /yac-fphffrdad-znu euxjn-di-qlsjiadwx n#treatments http__s://www.nimh .nih.gov/health/to pics/mental-health -medications http__s://www.nii .org/About-Mental- Illness/Treatments /Oklckv-Dycofy-Esy ications educated on all medications, benefits, side [...] potential neurotoxicity and interactions with prescribed medications. 05/05/2024 Generalized anxiety disorder (ICD-10 - F41.1) presently taking Wellbutrin XL 300 mg daily, Cymbalta 60 mg daily, Vraylar 3 mg daily, Buspar 15 mg three times a day, Vistaril 25 mg three times a day, Trazodone 100 mg bedtime patient would like to try GDR rx , feel better and stable and also on thyroid rx helps Bipolar AIMS= 0 02/04/24 Vraylar 3 mg daily Anxiety Wellbutrin XL 300 mg daily, Cymbalta 60 mg daily Will decrease Buspar 10 mg three times a day, Vistaril 25 mg three times a day PTSD- therapy Insomnia Trazodone 100 mg bedtime Cannabis use- patient reported stopped Recommend decrease/stop cannabis use as it can negatively impact mood, motivation, anxiety, sleep, focus/concentratio n/memory (vigilance, elasticity, processing and attention); can also contribute to development of psychosis. http_s://www.nimh. nih.gov/health/top ics/mental-health- medications http_s://www.nii. org/Xuwth-Acwulo-J llness/Treatments/ Hoxyhy-Ybtyuz-Pwyt cations Cannabis/marijuana information: http_s://bubba.nih. gov/publications/d rugfacts/cannabis- marijuana http_s://www.[employer]/cannabi h-kud-rojxqlew-mar ijuana-adhd/ http_s://www.nii. org/Dnwss-Fhefpk-O llness/Mental-Heal th-Conditions http_s://psychcent Acronis.com/depression /yzc-twxpnrgom-rzf xjoje-bj-dsaudbdww n#treatments http__s://www.nimh .nih.gov/health/to pics/mental-health -medications http__s://www.nii .org/About-Mental- Illness/Treatments /Dzhkgh-Rbgptk-Lty ications educated on all medications, benefits, side [...] potential neurotoxicity and interactions with prescribed medications. 05/05/2024 Post-traumatic stress disorder, chronic (ICD-10 - F43.12) presently taking Wellbutrin XL 300 mg daily, Cymbalta 60 mg daily, Vraylar 3 mg daily, Buspar 15 mg three times a day, Vistaril 25 mg three times a day, Trazodone 100 mg bedtime patient would like to try GDR rx , feel better and stable and also on thyroid rx helps Bipolar AIMS= 0 02/04/24 Vraylar 3 mg daily Anxiety Wellbutrin XL 300 mg daily, Cymbalta 60 mg daily Will decrease Buspar 10 mg three times a day, Vistaril 25 mg three times a day PTSD- therapy Insomnia Trazodone 100 mg bedtime Cannabis use- patient reported stopped Recommend decrease/stop cannabis use as it can negatively impact mood, motivation, anxiety, sleep, focus/concentratio n/memory (vigilance, elasticity, processing and attention); can also contribute to development of psychosis. http_s://www.nimh. nih.gov/health/top ics/mental-health- medications http_s://www.nii. org/Jsdrw-Kwwhkl-A llness/Treatments/ Fzayic-Tafzhj-Dzlo cations Cannabis/marijuana information: http_s://bubba.nih. gov/publications/d rugfacts/cannabis- marijuana http_s://www.[employer]/cannabi y-vvf-yshsaxlh-mar ijuana-adhd/ http_s://www.nii. org/Iktfo-Cdhtmw-R llness/Mental-Heal th-Conditions http_s://Keoghscom/depression /qyv-rxtwuxwin-mwm tzjdm-qa-elgsvrxle n#treatments http__s://www.nimh .nih.gov/health/to pics/mental-health -medications http__s://www.nii .org/About-Mental- Illness/Treatments /Twmnmd-Hcucnc-Zcq ications educated on all medications, benefits, side [...] potential neurotoxicity and interactions with prescribed medications. 05/05/2024 Insomnia due to other mental disorder (ICD-10 - F51.05) presently taking Wellbutrin XL 300 mg daily, Cymbalta 60 mg daily, Vraylar 3 mg daily, Buspar 15 mg three times a day, Vistaril 25 mg three times a day, Trazodone 100 mg bedtime patient would like to try GDR rx , feel better and stable and also on thyroid rx helps Bipolar AIMS= 0 02/04/24 Vraylar 3 mg daily Anxiety Wellbutrin XL 300 mg daily, Cymbalta 60 mg daily Will decrease Buspar 10 mg three times a day, Vistaril 25 mg three times a day PTSD- therapy Insomnia Trazodone 100 mg bedtime Cannabis use- patient reported stopped Recommend decrease/stop cannabis use as it can negatively impact mood, motivation, anxiety, sleep, focus/concentratio n/memory (vigilance, elasticity, processing and attention); can also contribute to development of psychosis. http_s://www.nimh. nih.gov/health/top ics/mental-health- medications http_s://www.nii. org/Qbdno-Xrkztj-P llness/Treatments/ Dhikqu-Uotqtk-Bvcp cations Cannabis/marijuana information: http_s://bubba.nih. gov/publications/d rugfacts/cannabis- marijuana http_s://www.[facility]/cannabi h-glm-oidydzrj-mar ijuana-adhd/ http_s://www.nii. org/Pfrgs-Xkisgh-E llness/Mental-Heal th-Conditions http_s://psychKiwi.com/depression /dvp-oxcbnmnyi-yum odgzg-pp-wybhbzahd n#treatments http__s://www.nim .nih.gov/health/to pics/mental-health -medications http__s://www.nii .org/About-Mental- Illness/Treatments /Cjnmma-Elsmej-Cje ications educated on all medications, benefits, side [...] potential neurotoxicity and interactions with prescribed medications. 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 (ICD-10 - Z79.899) presently taking Wellbutrin XL 300 mg daily, Cymbalta 60 mg daily, Vraylar 3 mg daily, Buspar 15 mg three times a day, Vistaril 25 mg three times a day, Trazodone 100 mg bedtime patient would like to try GDR rx , feel better and stable and also on thyroid rx helps Bipolar AIMS= 0 02/04/24 Vraylar 3 mg daily Anxiety Wellbutrin XL 300 mg daily, Cymbalta 60 mg daily Will decrease Buspar 10 mg three times a day, Vistaril 25 mg three times a day PTSD- therapy Insomnia Trazodone 100 mg bedtime Cannabis use- patient reported stopped Recommend decrease/stop cannabis use as it can negatively impact mood, motivation, anxiety, sleep, focus/concentratio n/memory (vigilance, elasticity, processing and attention); can also contribute to development of psychosis. http_s://www.nimh. nih.gov/health/top ics/mental-health- medications http_s://www.nii. org/Aikxi-Szsopm-C llness/Treatments/ Erfxru-Jzdraa-Ajhn cations Cannabis/marijuana information: http_s://bubba.nih. gov/publications/d rugfacts/cannabis- marijuana http_s://www.[employer]/cannabi p-hhw-jnttbwrv-mar ijuana-adhd/ http_s://www.nii. org/Dtxhk-Qxddbw-Y llness/Mental-Heal th-Conditions http_s://psychcent ral.com/depression /wet-iagfoffhg-qhn zadwe-gk-izcmthois n#treatments http__s://www.[facility] .nih.gov/health/to pics/mental-health -medications http__s://www.nii .org/About-Mental- Illness/Treatments /Aasfer-Sfdlxj-Exe ications educated on all medications, benefits, side [...] potential neurotoxicity and interactions with prescribed medications. 05/05/2024 Marijuana use (ICD-10 - F12.90) Marijuana Use: Care Instructions material was published, Learning About Cannabis Use Disorder material was published presently taking Wellbutrin XL 300 mg daily, Cymbalta 60 mg daily, Vraylar 3 mg daily, Buspar 15 mg three times a day, Vistaril 25 mg three times a day, Trazodone 100 mg bedtime patient would like to try GDR rx , feel better and stable and also on thyroid rx helps Bipolar AIMS= 0 02/04/24 Vraylar 3 mg daily Anxiety Wellbutrin XL 300 mg daily, Cymbalta 60 mg daily Will decrease Buspar 10 mg three times a day, Vistaril 25 mg three times a day PTSD- therapy Insomnia Trazodone 100 mg bedtime Cannabis use- patient reported stopped Recommend decrease/stop cannabis use as it can negatively impact mood, motivation, anxiety, sleep, focus/concentratio n/memory (vigilance, elasticity, processing and attention); can also contribute to development of psychosis. http_s://www.nimh. nih.gov/health/top ics/mental-health- medications http_s://www.nii. org/Ayhpw-Owiers-A llness/Treatments/ Jzviwn-Hrqyls-Hvxk cations Cannabis/marijuana information: http_s://bubba.nih. gov/publications/d rugfacts/cannabis- marijuana http_s://www.[facility]/cannabi y-bbk-pwancedj-mar ijuana-adhd/ http_s://www.nii. org/Yxlpj-Gkhrhn-F llness/Mental-Heal th-Conditions http_s://psychcent Acronis.com/depression /ofg-nyamwzwri-cxi ffuwx-bx-vwshmxrff n#treatments http__s://www.nimh .nih.gov/health/to pics/mental-health -medications http__s://www.nii .org/About-Mental- Illness/Treatments /Wuubmg-Rlqnrb-Ayy ications educated on all medications, benefits, side [...] Name Sig Start Date Stop Date Notes busPIRone HCl 10 MG 1 tablet Orally thre e times a day for 90 days 05/05/2024 08/03/2024 d/c 15 mg dose Vraylar 3 mg take one capsule luiz ly Oral bedtime for 90 days buPROPion HCl ER (XL) 300 MG 1 tablet every morning Oral Once a day for 90 days hydrOXYzine HCl 25 MG 1 tablet Oral thre e times a day for 90 days traZODone HCl 100 MG 1 tablet at bedtime Oral Once a day for 90 days DULoxetine HCl 60 MG 1 capsule Oral Once a day for 90 days Treatment Notes Assessment Notes Marijuana use Marijuana Use: Care Instructions material was published, Learning About Cannabis Use Disorder material was published Next Appt Details Follow Up: 3 Months, Reason: f/u rx Provider Name:Elissa Rhina , 08/04/2024 04:15:00 PM, [address], [facility] [address], [place], [address], Progress Notes * LESLY PAYNE MDOB:[birth year] (48 yo F)Acc No.[id number]:05/05/2024 Patient: LESLY PINEDA Provider: BAILEY MCDOWELL :1975 A ge:48 Y S ex:Female Date:05/05/2024 Address:[facility] [address], [facility] Pcp:Joel Dominique Subjective: * Chief Complaints: * 1 . Follow up. * HPI: D epression Screening: CHOLO-7 (2018 Edition) F eeling nervous, anxious, or on edge?More than half the days, N ot being able to stop or control worrying M ore than half the days, W orrying too much about different things S everal days, T rouble relaxing N early every day, B eing so restless that it is hard to sit still S everal days, B ecoming easily annoyed or irritable N ot at all, F eeling afraid as if something awful might happen N early every day, T otal CHOLO-7 Score 1 2, I f you checked any problems, how difficult have they made it for you to do your work, take care of things at home, or get along with other people? S omewhat difficult, I nterpretation of Total ( 10 to 14) Moderate. 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, depression been doing really good and I have experience stressful situation recently and over all did not effect me too bad, I had few days sad, anxiety good I still get pit in stomach something will happen but it is better, and sometimes over whelm r/t it and not kknow what to do next, sleep been good average 7-9 hours, Trazodone helped, medications all doing good and I would like to try GDR on medication, conentration and focus good, motivation and interest not a lot, and I do bare minuim for a long time like a mental block and I am in therapy, and no agitation no irritable, no psychosis no malron,no hypomania, no delusions, no paranoia, feel better on higher dose thyroid rx and lost little weight also and I am on higher dose now, and feel better, no SI/HI? Denies SI/HI no plans or intent no thoughts harm to self or others, past attempts 2-3 times, OD, [facility] [place] SI thoughts and depression, and as child [...] times a day, Trazodone 100 mg bedtime, [place], Zoloft, Prozac,. C [place]-Suicide Severity Rating Scale: [...] ittle interest or pleasure in doing things S everal days, F eeling down, depressed, or hopeless S everal days, T rouble falling or staying asleep, or sleeping too much N early every day, F eeling tired or having little energy Several days, P oor appetite or overeating M ore than half the days, F eeling bad about yourself or that you are a failure, or have let yourself or your family down M ore than half the days, T rouble concentrating on things, such as reading the newspaper or watching television S ever days, M oving or speaking so slowly that other people could have noticed; or the opposite, being so fidgety or restless that you have been moving around a lot more than usual N ot at all, T houghts that you would be better off or of hurting yourself in some way N ot at all, T otal Score 1 1, I nterpretation M oderate Depression. I ntervention?Depression Screening Findings P ositve, F ollow-Up for Depression M ental health treatment assessment, Patient follow-up to return when and if necessary, S uicide Risk Assessment Performed , A dditional Evaluation for Depression P sychiatric interview and evaluation, N nancy of the standardized tool used for adult depression screening: [facility], [facility] Health Questionnaire (PHQ-9). * ROS: P erformance Met: N ormal blood pressure reading documented, follow-up not required ( G8783) r eports n o shortness of breath no chest pain,, no palpitations, no known heart murmur, and no ankle swelling; no cough. r eports no abdominal pain, daily nausea, no vomiting, no constipation, normal appetite, no diarrhea, and no GERD; . hx anorexia and binge- stable r eports headaches and no migraines no loss of consciousness, no weakness, no numbness, no seizures, no dizziness, no tremor, no gait dysfunction, and no paralysis. r eports no sleep disturbances no restless sleep, and no memory loss b ut reports mild depression, feeling safe in a relationship, no alcohol abuse, mmild anxiety, no hallucinations, no suicidal thoughts, no mood swings, no agitation, r eports no fatigue. report dry mouth reports no fever, no significant weight gain, and no significant weight loss. r eports wears glasses reports no incontinence, no difficulty urinating and no increased frequency. r eports no muscle aches, no muscle weakness, no arthralgias/joint pain, no back pain, no swelling in the extremities, no neck pain, and no difficulty walking. * Medical History: P frank: Akathisia, Chronic post-traumatic stress disorder, Dissociative disorder, [...] Years: Former smoker 06/02/2022,Smoking Status: 10 04/30/2023. 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 N o. * Medications: T aking Diclofenac Sodium 1% Gel Transdermal , Taking Qvar RediHaler 80 MCG/ACT Aerosol Breath Activated Inhalation , Taking ProAir HFA 108 (90 Base) MCG/ACT Aerosol Solution Inhalation , Taking Liothyronine Sodium 5 MCG Tablet Oral , Taking Progesterone Micronized 100 MG Capsule Oral , Taking Tirosint 50 mcg Capsule Oral , Taking DULoxetine HCl 60 MG Capsule Delayed Release Particles 1 capsule Oral Once a day , Taking hydrOXYzine HCl 25 MG Tablet 1 tablet Oral three times a day , Taking Vraylar 3 mg Capsule take one capsule daily Oral bedtime , Taking buPROPion HCl ER (XL) 300 MG Tablet Extended Release 24 Hour 1 tablet every morning Oral Once a day , Taking traZODone HCl 100 MG Tablet 1 tablet at bedtime Oral Once a day , Not- Taking Sucralfate 1 GM Tablet Oral , Not-Taking Minipress 1 mg Capsule Oral , Not- Taking Xifaxan 550 MG Tablet Oral , Not-Taking SOLIFENACIN 5 MG TABLET , Notes to Pharmacist: *Reorder from [facility] for eRx and Interaction Alerts*, Not-Taking Amitiza 8 MCG Capsule Oral , Not-Taking SUMAtriptan Succinate 50 MG Tablet Oral , Not-Taking busPIRone HCl 5 MG Tablet Oral , Not-Taking Cyanocobalamin 1000 MCG/ML Solution Injection , Not-Taking Dicyclomine HCl 10 MG Capsule Oral , Not-Taking HYDROcodone-Acetaminophen 5-325 MG Tablet Oral , Not-Taking DODEX 1,000 MCG/ML INJECTION SOLUTION , Notes to Pharmacist: *Reorder from [employer] for eRx and Interaction Alerts*, Not-Taking Proctozone-HC 2.5 % Cream Rectal , Not-Taking Tranexamic Acid 650 MG Tablet Oral , Not-Taking Ergocalciferol 1.25 MG (53109 UT) Capsule Oral , Not-Taking Levothyroxine Sodium 25 MCG Tablet Oral , Not-Taking 16.2-0.1037 -0.0194 mg Tablet Oral , Notes to Pharmacist: *Pick strength-form from [employer] for eRX*, Not-Taking Prazosin HCl 1 MG Capsule Oral , Not-Taking Cyclobenzaprine HCl 10 MG Tablet Oral , Medication List reviewed and reconciled with the patient * Allergies: N .K.D.A. Objective: * Vitals: B P:124/83mm Hg, HR:84/min, Wt:165.4lbs, Wt-k.02 kg, Ht: 65.00 in, Ht-cm: 165.10 cm, BMI:27.52Index, Body Surface Area: 1.85. * Examination: P sychiatry: Appearance: w ell-groomed, [...] mental disorder - F51.05 5. O ther detention (current) drug therapy - Z79.899 6 . M arijuana use - F12.90 presently taking Wellbutrin XL 300 mg daily, Cymbalta 60 mg daily, Vraylar 3 mg daily, Buspar 15 mg three times a day, Vistaril 25 mg three times a day, Trazodone 100 mg bedtime patient would like to try GDR rx , feel better and stable and also on thyroid rx helps Bipolar AIMS= 0 02/04/24 Vraylar 3 mg daily Anxiety Wellbutrin XL 300 mg daily, Cymbalta 60 mg daily Will decrease Buspar 10 mg three times a day, Vistaril 25 mg three times a day PTSD- therapy Insomnia Trazodone 100 mg bedtime Cannabis use- patient reported stopped Recommend decrease/stop cannabis use as it can negatively impact mood, motivation, anxiety, sleep, focus/concentration/memory (vigilance, elasticity, processing and attention); can also contribute to development of psychosis. http_s://www.nimh.nih.gov/health/topics/yyxcop-usqgga-oojzdnigkfx http_s://www.nii.org/Zpidt-Juwigf-Esmqxuf/Treatments/Jwoscr-Kmcrpg-Awcfkbichei Cannabis/marijuana information: http_s://bubba.nih.gov/publications/drugfacts/cannabis-marijuana http_s://www.SearchMe.[employer]/chttsjay-asw-aqbflyvp-marijuana-adhd/ http_s://www.nii.org/Ccwfj-Sjnlle-Kqsbcjh/Cykikp-Fijhti-Tznqutxkil http_s://psychcentral.com/depression/hun-mpxkhsxjc-nezcdyil-of-depression#treatm ents http__s://www.nimh.nih.gov/health/topics/avambr-yjikfm-ypvnfcelzgt http__s://www.nii.org/Ruayw-Slfziy-Ngnsjob/Treatments/Gpvdpn-Byesbe-Wegexzwlowq educated on all medications, benefits, side effects [...] days, 90 Capsule, Refills 0; R efill hydrOXYzine HCl Tablet, 25 MG, 1 tablet, Oral, three times a day, 90 days, 270 Tablet, Refills 0; S tart busPIRone HCl Tablet, 10 MG, 1 tablet, Orally, three times a day, 90 days, 270 Tablet, Refills 0, Notes to Pharmacist: d/c 15 mg dose. 3. I nsomnia due to other mental disorder Refill traZODone HCl Tablet, 100 MG, 1 tablet at bedtime, Oral, Once a day, 90 days, 90, Refills 0.? 4. M arijuana use Notes: Marijuana Use: Care Instructions material was published, Learning About Cannabis Use Disorder material was published * Procedure Codes: 9 6127 BEHAV ASSMT W/SCORE & DOCD/STAND INSTRUMENT, G8783 NORMAL BP READING DOC F/U NOT RQR, G2211 VISIT COMPLEXITY INHERENT TO ONGOING CARE RELATED TO A PATIENT'S SINGLE, SERIOUS CONDITION OR A COMPLEX CONDITION * Preventive Medicine: Screenings: F all risk screening F all Risk Assessment: N o falls in the past year. B reast cancer screening (mammogram) H ave you had a recent mammogram? Y es,?Date of mammogram: 0 01/03/2024. C ervical cancer screening (Pap smear) H ave you had a recent Pap smear? h ysterectomy does not do PAP. D epression screening H ave you had a recent depression screening? Y es, D ate of depression screenin 05/05/2024. A lcohol misuse screening H ave you had a recent alcohol misuse screening? Y es, D ate of alcohol misuse screenin 05/05/2024. C olorectal cancer screening H ave you had a recent colorectal cancer screening? c olonoscopy over 5 years ago. * Follow Up: 3 Months (Reason: f/u rx) * Billing Information: * Visit Code: 16920 OFFICE OUTPATIENT VISIT 25 MINUTES DETAILED HISTORY AND EXAM/MODERATE MEDICAL DECISION MAKING. * Procedure Codes: 99194 BEHAV ASSMT W/SCORE & DOCD/STAND INSTRUMENT. G8783 NORMAL BP READING DOC F/U NOT RQR. G2211 VISIT COMPLEXITY INHERENT TO ONGOING CARE RELATED TO A PATIENT'S SINGLE, SERIOUS CONDITION OR A COMPLEX CONDITION. * ER BED PLACER Sign off status: Completed true * Provider: Mendoza LANTIGUA PMHNP Date: 0 05/05/2024 Generated for Nilsa Mckoy on: 0 2024 02:35 PM CDT History and Physical Notes * HPI (History of Present Illness) Category Sub-Category Detail Notes Category Not es Depression screening PHQ-9 Little inte rest or pleasure in doing things: Several days Feeling down, depressed, or hopeless: Se veral days Trouble falling or staying asleep, or sl eeping too much: Nearly every day Feeling tired or having little energy: S everal days Poor appetite or overeating: More than h [place] the days Feeling bad about yourself o r that you are a failure, or have let yourself or your family down: More than half the days Trouble concentrating on thi ngs, such as reading the newspaper or watching television: Several days Moving or speaking so slowly that other people could have noticed; or the opposite, being so fidgety or restless that you have been moving around a lot more than usual: Not at all Thoughts that you would be b rosana off or of hurting yourself in some way: Not at all Total Score: 11 Interpretation: Moderate Depression Intervention Depression Screening Findings: P ositve Follow-Up for Depression: [facility] treatment assessment, Patient follow-up to return when and if necessary Suicide Risk Assessment Performed: Additional Evaluation for De pression: Psychiatric interview and evaluation Name of the standardized too l used for adult depression screening:: Patient Health Questionnaire (PHQ-9) Depression Screening CHOLO-7 (2018 Edition) Feeling nervous, anxious, or on edge: More than half the days 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, depression been doing really good and I have experience stressful situation recently and over all did not effect me too bad, I had few days sad, anxiety good I still get pit in stomach something will happen but it is better, and sometimes over whelm r/t it and not kknow what to do next, sleep been good average 7-9 hours, Trazodone helped, medications all doing good and I would like to try GDR on medication, conentration and focus good, motivation and interest not a lot, and I do bare minuim for a long time like a mental block and I am in therapy, and no agitation no irritable, no psychosis no marlon,no hypomania, no delusions, no paranoia, feel better on higher dose thyroid rx and lost little weight also and I am on higher dose now, and feel better, no SI/HI Denies SI/HI no plans or intent no thoughts harm to self or others, past attempts 2-3 times, OD, [facility] [place] SI thoughts and depression, and as child [...] times a day, Trazodone 100 mg bedtime, [place], Zoloft, Prozac, Not being able to stop or control worryi ng: More than half the days Worrying too much about different things : Several days Trouble relaxing: Nearly every day Being so restless that it is hard to sit still: Several days Becoming easily annoyed or irritable: No t at all Feeling afraid as if something awful tom ht happen: Nearly every day Total CHOLO-7 Score: 12 If you checked any problems, how difficult have they made it for you to do your work, take care of things at home, or get along with other people?: Somewhat difficult Interpretation of Total: (10 to 14) Mode rate Miles-Suicide Severity Rating Scale Suicide Risk (CSRS-screener) in [...]
--- OUTSIDE RECORDS SUMMARY | 2024-07-17 14:35 | XMS_ITS | Referral Summary ---
Author Organization [facility] Address [address] [place] [address] Care Team Providers Care House Furnishings Supervisor Name Role Phone Junaid Lopez MD Primary Care Provider [phone] Source Comments [facility],non-owned Affiliates and Associated Physician Practices is amultiple site organization consisting of ambulatory clinics and hospital sitesin [place], [place], [place] and [place]. This disclosure is being madepursuant to the Care Everywhere program and may not contain all information available regarding this patient. Last updated 18.[facility] Allergies No known active allergies Medications * Be aware that medications may not be up to date on this document. Alwaysverify current medications with the patient. Medication Sig Dispensed Refills Start Date End Date Status fluticasone propionate (FLONASE) 50 MCG/ACT nasal sprayIndications:Acut e maxillary sinusitis, recurrence not specified [place] 1 spray into each nostril 2 times [...] 07/10/2019 11:16 AM CDT Plan of Treatment Not on file Care Teams House Furnishings Supervisor Relationship Specialty Start Date End Date Junaid Lopez MD [address] [place] [address] PCP - General Family Medicine 06/27/17
--- OUTSIDE RECORDS SUMMARY | 2024-07-17 14:36 | XMS_ITS | Clinical Summary ---
Author Organization [facility] [place] [address] Address [address] [place] [address] Care Team Providers Care Taste Tester Name Role Phone Joel Briggs MD Primary Care Provider Allergies No known active allergies Medications ergocalciferol (VITAMIN D) 50,000 unit capsuleIndicatio ns:Vitamin D Deficiency Take 50,000 Units by mouth once a week wednesday 2 Active progesterone (PROMETRIUM) 100 mg capsuleIndicatio ns:hormone replacement Take 100 mg by mouth every morning 2 Active levothyroxine sodium (TIROSINT) 25 mcg capsuleIndicatio ns:hypothyroidis m 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 Active oxyCODONE (ROXICODONE) 5 mg immediate release tabletIndication s:Pain Take 1 tablet (5 mg total) by mouth every 6 (six) hours as needed for pain (breakthrough pain) 15 tablet 3 Active acetaminophen (TYLENOL) 500 mg tablet Take 2 tablets (1,000 mg total) by mouth every 6 (six) hours as needed for pain 30 tablet 3 Active docusate sodium (COLACE) 100 mg capsuleIndicatio ns:constipation Take 1 capsule (100 mg total) by mouth 2 (two) times a day 14 capsule 3 Active calcium carbonate (OS-SABINA) 1,250 mg (500 mg elemental) tabletIndication s:Hypocalcemia Prevention Take 1 tablet (1,250 mg total) by mouth every 8 (eight) hours for 7 days, THEN 1 tablet (1,250 mg total) every 12 (twelve) hours for 7 days, THEN 1 tablet (1,250 mg total) daily for 7 days. 42 tablet Active flibanserin (Addyi) 100 mg tablet Take 1 tablet by mouth nightly Active hydrOXYzine (ATARAX) 10 mg tablet Take 1 tablet (10 mg total) by mouth bedtime Active traZODone (DESYREL) 50 mg tablet Take 1 tablet (50 mg total) by mouth nightly Active Active Problems Problem Noted Date Diagnosed Date Hypothyroidism 01/14/2023 Hyperparathyroidism 04/22/2022 Allergic rhinitis 11/26/2004 Surgical History Surgery Date Site/Laterality Comments PARTIAL HYSTERECTOMY 05/03/2019 - 05/02/2020 Medical History Medical History Date Comments Anxiety Arthritis Depression Migraine Parathyroid disease Family History Medical History Relation Name Comments Depression Mother Depression Sister Relation Name Status Comments Mother Sister Social History Tobacco Use Types Packs/Day Years Used Date Smoking Tobacco: Former Cigarettes Q uit: 2001 Smokeless Tobacco: Never Tobacco Cessation:Counseling Given: Not Answered AUDIT-C Answer Date Recorded Q1: How often do you have a drink containing alcohol? Never 05/12/2022 Q2: How many drinks containi ng alcohol do you have on a typical day when you are drinking? Patient does not drink Q3: How often do you have si x or more drinks on one occasion? Never 05/12/2022 Personal Safety Answer Date Recorded Getting School Help Needed Denies 04/27 Comments No Sex and Gender Information Value Date Recorded Sex Assigned at Not on file Legal Sex Female 12:45 AM FORENSIC SCIENTIST Gender Identity Not on file Sexual Orientation Not on file Obstetrics History Last Filed Vital Signs Vital Sign Reading Time Taken Comments Blood Pressure 145/74 05/12/2022 4:40 PM FORENSIC SCIENTIST Pulse 78 05/12/2022 4:40 PM FORENSIC SCIENTIST Temperature 36.1 C (97 F) 05/12/2022 3:10 PM FORENSIC SCIENTIST Respiratory Rate 11 05/12/2022 4:40 PM FORENSIC SCIENTIST Oxygen Saturation 98% 05/12/2022 4:40 PM FORENSIC SCIENTIST Inhaled Oxygen Concentration - - Weight 60.5 kg (133 lb 6.4 oz) 05/28/2022 9:17 A M FORENSIC SCIENTIST Height 165.1 cm (5' 5 ) 05/12/2022 11:30 AM FORENSIC SCIENTIST Body Mass Index 22.2 05/12/2022 11:30 AM FORENSIC SCIENTIST Plan of Treatment Health Maintenance Due Date Last Done Comments Breast Cancer Screening-Mammogram 1976 Colon Cancer Screening-Colonoscopy 1976 Depression Screening 1976 Hepatitis C Screening 1976 DTaP/Tdap/Td Vaccine (1 - Tdap) 07/18/1987 Hepatitis B Screening 1994 Regular Well Visit/Exam 18-64 1994 Influenza Vaccine (#1) 2024 07/09/2022 Pneumococcal vaccine <65 Aged Out No longer eligible based on patient's age to complete this topic Medical Devices Implanted Type Area Parts Picker Device Identifier Shelf Expiration Date Model / Serial / Lot [employer] Weck Horizon Ligate Triangulate Cross Section Wire Small Wide Latex Free [id number] Implanted:Qty: 2 on 05/12/2022 by Brennen Gordon MD at [facility] N/A: Neck [employer] Weck Horizon 6 Cartridge Ligate Triangulate Cross Section Heart [id number] Implanted:Qty: 2 on 05/12/2022 by Brennen Gordon MD at [facility] N/A: Neck [employer] Weck Horizon 6 Cartridge Ligate Triangulate Cross Section Heart [id number] Implanted:Qty: 1 on 05/12/2022 by Brennen Gordon MD at [facility] N/A: Neck [employer] Insurance CIG[employer] CIG[employer] Care Teams Taste Tester Relationship Specialty Start Date End Date Joel Briggs MD PCP - General Family Practice 05/28/22
--- OUTSIDE RECORDS SUMMARY | 2024-07-17 14:36 | XMS_ITS | Data Portability ---
Author Organization [facility], Main Office Address [address] [place] [address] Assessment No assessment recorded. Plan of Treatment Reminders Order Date Submit Date Provider Last Modified By Organization Details Last Modified Time Details Appointments None recorded. Lab None recorded. Referral endocrinolo gy referral 2022 023 dianne Archibald MD, [address], [address], 3 12:30:57 Procedures None recorded. Surgeries None recorded. Imaging None recorded. Medication Orders Tirosint 50 mcg capsule 2022 023 JILLIAN Not available 4 12:32:02 liothyronin e 5 mcg tablet 2022 023 [id number], [address], [place], [id number], 3 12:14:13 Patient TargetsNo targets recorded. Patient InstructionsNo instructions recorded. Reason for Referral Endocrinology Referral for H ypothyroidism Referring Physician: Nellie Manning, Endocrinology, Encounter Date: 01/14/2023 Results Created Date Observation Date Name Description Value Unit Range Abnormal Flag Note LastModifiedBy Organization Detail LastModifiedTime 06/28/19 22 06/27/2021 US, thyro id No observ ation record ed. [id number] [facility] [address], [place], [address], 07/02/2022 00:29:00 10/25/19 22 10/24/2021 US, thyro id No observ ation record ed. [id number] [facility] [address], [place], [address], 07/02/2022 00:29:00 12/13/19 22 12/12/2021 US, thyro id No observ ation record ed. [id number] [facility], [place], [address], 07/02/2022 00:29:00 02/21/20 22 02/18/2022 bone densi ty No observ ation record ed. [id number] [facility], [place], [address], 07/02/2022 00:29:00 Result Notes None recorded. Problems Name Problem SNOMED Code Status Onset Date Resolution Date Notes Provider Name and Address Organization Details Recorded Time Hypothyroidism [id number] Active 2022 Nellie Manning MD [address], [place], [address], [employer] To Get Approved For 3 12:12:08 Primary hyperparathyroi dism [id number] Active 2022 Nellie Manning MD [address], [place], [address], [employer] To Get Approved For 3 12:14:15 Problem Notes None recorded. Procedures Surgical History Date Name Laterality Status Provider Name and Address Organization Details Recorded Time 1 hysterectomy completed Not Available [facility] 023 00:26:27 Imaging Results Imaging Date Name Status LastModified by Organiz [facility] Details LastModified Time 06/27/2021 US, thyroid completed [id number] 026 [facility] [address], [place], [address], 07/02/2022 00:29:00 02/18/2022 bone density completed [id number] [facility], [place], [address], 07/02/2022 00:29:00 10/24/2021 US, thyroid completed [id number] 30 026 [facility] [address], [place], [address], 07/02/2022 00:29:00 12/12/2021 US, thyroid completed [id number] 30 026 [facility] [address], [place], [address], 07/02/2022 00:29:00 Procedure Notes None recorded. Medical Equipment None Reported. Allergies No known drug allergies Medications Name Sig Start Date Stop Date Status Note LastModified by Organization Details LastModified Time cl-neuromyo plus d2.32%/l5%/ a2%b2%/men2 %/ml Apply 1 pump topically once a day or twice a day as needed to painful area. Max 2 pumps per 24 hr. active Not Available Not Available No t Available cyclobenzap rine 10 mg tablet TAKE 1 TABLET BY MOUTH AT BEDTIME active Not Available Not Available No t Available buspirone 5 mg tablet TAKE 1 TABLET BY MOUTH THREE TIMES DAILY WITH MEALS 06/24 completed Not Available Not Available Not Available trazodone 50 mg tablet TAKE 1 TABLET BY MOUTH ONCE DAILY AT BEDTIME active Not Available Not Available No t Available hydrocodone 5 mg-acetamin ophen 325 mg tablet TAKE 1 TABLET BY MOUTH EVERY 6 HOURS NEEDED FOR PAIN 06/24 completed Not Available Not Available Not Available prazosin 1 mg capsule TAKE 1 CAPSULE BY MOUTH ONCE DAILY AT BEDTIME FOR 30 DAYS active Not Available Not Available No t Available meloxicam 15 mg tablet TAKE 1 TABLET BY MOUTH EVERY DAY active Not Available Not Available No t Available sucralfate 1 gram tablet 06/24 completed Not Available Not Available Not Available lithium carbonate 150 mg capsule TAKE 1 CAPSULE BY MOUTH EVERY DAY IN THE MORNING 06/24 completed Not Available Not Available Not Available metronidazo le 500 mg tablet TAKE 1 TABLET BY MOUTH TWICE DAILY active Not Available Not Available No t Available phentermine 37.5 mg tablet TAKE 1 TABLET BY MOUTH EVERY DAY active Not Available Not Available No t Available ciprofloxac in 250 mg tablet TAKE 1 TABLET BY MOUTH TWICE DAILY 03/24 completed Not Available Not Available Not Available peg-electro lyte solution 420 gram oral solution TAKE DIRECTED PER OFFICE active Not Available Not Available No t Available liothyronin e 5 mcg tablet Take 1 tablet(s) every day by oral route at noon for 90 days. active Not Available Not Available No t Available levothyroxi ne 25 mcg tablet TAKE 1 TABLET BY MOUTH EVERY DAY 06/24 completed Not Available Not Available Not Available ketorolac 10 mg tablet TAKE 1 TABLET BY MOUTH EVERY 8 HOURS FOR 5 DAYS 06/24 completed Not Available Not Available Not Available calcium 500 mg (as calcium carbonate 1,250 mg) tablet active Not Available Not Available Not Available lithium carbonate 600 mg capsule TAKE 1 CAPSULE BY MOUTH AT BEDTIME active Not Available Not Available No t Available lithium carbonate 300 mg capsule TAKE 1 CAPSULE BY MOUTH EVERY DAY AT BEDTIME active Not Available Not Available No t Available cyanocobala min (vit B-12) 1,000 mcg/mL injection solution ADMINISTE R 1 ML UNDER THE SKIN EVERY WEEK IN THE MORNING active Not Available Not Available No t Available buspirone 10 mg tablet TAKE 1 TABLET BY MOUTH THREE TIMES DAILY WITH MEALS active Not Available Not Available No t Available promethazin e 25 mg tablet TAKE 1/2 TABLET BY MOUTH EVERY 6 HOURS NEEDED FOR NAUSEA active Not Available Not Available No t Available polymyxin B sulfate 10,000 unit-trimet hoprim 1 mg/mL eye drops INSTILL 1 DROP IN EACH EYE THREE TIMES DAILY WHILE AWAKE FOR 5 DAYS. DO NOT EXCEED 6 DOSES IN 24 HOURS 06/24 completed Not Available Not Available Not Available buspirone 7.5 mg tablet TAKE 1 TABLET BY MOUTH THREE TIMES DAILY WITH MEALS 06/24 completed Not Available Not Available Not Available omeprazole 20 mg capsule,del ayed release TAKE 1 CAPSULE BY MOUTH DAILY active Not Available Not Available No t Available ergocalcife rol (vitamin D2) 1,250 mcg (50,000 unit) capsule TAKE 1 CAPSULE BY MOUTH EVERY WEDNESDAY active Not Available Not Available No t Available neomycin 500 mg tablet TAKE 1 TABLET BY MOUTH TWICE DAILY 03/24 completed Not Available Not Available Not Available hydroxyzine HCl 10 mg tablet TAKE 1 TABLET BY MOUTH ONCE DAILY AT BEDTIME FOR 90 DAYS active Not Available Not Available No t Available ondansetron 4 mg disintegrat ing tablet DISSOLVE 1 TABLET UNDER THE TONGUE EVERY 4 TO 6 HOURS NEEDED active Not Available Not Available No t Available sertraline 50 mg tablet TAKE 1 TABLET BY MOUTH ONCE DAILY active Not Available Not Available No t Available dicyclomine 10 mg capsule TAKE 1 CAPSULE BY MOUTH 4 TIMES DAILY NEEDED FOR ABDOMINAL CRAMPING active Not Available Not Available No t Available progesteron e micronized 100 mg capsule TAKE 1 CAPSULE DAILY IN THE MORNING active Not Available Not Available No t Available amoxicillin 875 mg-potassiu m clavulanate 125 mg tablet TAKE 1 TABLET BY MOUTH TWICE DAILY FOR 10 DAYS active Not Available Not Available No t Available oxycodone 5 mg tablet active Not Available Not Available No t Available 16.2 mg-0.1037 mg-0.0194 mg tablet TAKE 1 TABLET BY MOUTH THREE TIMES DAILY NEEDED 06/24 completed Not Available Not Available Not Available duloxetine 60 mg capsule,del ayed release TAKE 1 CAPSULE BY MOUTH ONCE DAILY IN THE MORNING active Not Available Not Available No t Available solifenacin 5 mg tablet TAKE 1 TABLET BY MOUTH EVERY DAY active Not Available Not Available No t Available progesteron e 03/24 completed Not Available Not Available Not Available quetiapine 50 mg tablet TAKE 1 TABLET BY MOUTH EVERY NIGHT AT BEDTIME active Not Available Not Available No t Available Amitiza 8 mcg capsule TAKE 1 CAPSULE BY MOUTH TWICE DAILY WITH FOOD AND WATER active Not Available Not Available No t Available Tirosint 50 mcg capsule TAKE ONE TABLET BY MOUTH EVERY MORNING 2022 active Not Available Not Available Not Avai lable Tirosint 25 mcg capsule TAKE ONE CAPSULE BY MOUTH ONCE DAILY active Not Available Not Available No t Available Xifaxan 550 mg tablet active Not Available Not Available No t Available tranexamic acid 650 mg tablet TAKE 2 TABLETS BY MOUTH THREE TIMES DAILY FOR 5 DAYS NEEDED 06/24 completed Not Available Not Available Not Available Linzess 290 mcg capsule TAKE 1 CAPSULE BY MOUTH EVERY MORNING active Not Available Not Available No t Available BD Insulin Syringe Ultra-Fine 1 mL 31 gauge x 5/16 inject B12 once weekly x 90 days, ok to substitut e per insurance active Not Available Not Available No t Available duloxetine 40 mg capsule,del ayed release TAKE 1 CAPSULE BY MOUTH EVERY MORNING active Not Available Not Available No t Available Addyi 100 mg tablet TAKE ONE Tablet BY MOUTH EVERY NIGHT AT BEDTIME active Not Available Not Available No t Available Vraylar 1.5 mg (1)-3 mg (6) capsules in a dose pack Take 1 capsule every day by oral route. 03/24 completed Not Available Not Available Not Available Vraylar 1.5 mg capsule TAKE 1 CAPSULE BY MOUTH ONCE DAILY IN THE MORNING 03/24 completed Not Available Not Available Not Available Vraylar 4.5 mg capsule TAKE 1 CAPSULE BY MOUTH EVERY NIGHT AT BEDTIME 03/24 completed Not Available Not Available Not Available Vraylar 3 mg capsule TAKE 1 CAPSULE BY MOUTH ONCE DAILY IN THE EVENING active Not Available Not Available No t Available Trulance 3 mg tablet TAKE 1 TABLET BY MOUTH EVERY DAY active Not Available Not Available No t Available Ubrelvy 100 mg tablet active Not Available Not Available No t Available ID NOW COVID-19 Test Kit TEST DIRECTED active Not Available Not Available No t Available BinaxNOW COVID-19 Ag Self Test kit TEST DIRECTED TODAY active Not Available Not Available No t Available Paxlovid 300 mg (150 mg x 2)-100 mg tablets in a dose pack TK 2 NIRMATREL VIR TS AND 1 RITONAVIR T TOGETHER PO BID FOR 5 DAYS TWICE DAILY FOR 5 DAYS. active Not Available Not Available No t Available Vitals Date Recorded Body mass index (BMI) Body height Oxygen saturation Oxygen saturation in Arterial blood by Pulse oximetry Heart rate Body temperature Body weight Systolic blood pressure Diastolic blood pressure Provider Name and Address Organization Details Last Updated DateTime 2 26.6 kg/m2 162.56 cm 99 % 99 % 96 /min 97.8 [degF] 18013.8 2 g 100 mm[Hg] 80 mm[Hg] Not Available [facility] 3 00:26:41 Date Recorded Body mass index (BMI) Body height Oxygen saturation Oxygen saturation in Arterial blood by Pulse oximetry Heart rate Body temperature Body weight Systolic blood pressure Diastolic blood pressure Provider Name and Address Organization Details Last Updated DateTime 2 24.2 kg/m2 162.56 cm 98 % 98 % 84 /min 97.8 [degF] 62348.5 2 g 130 mm[Hg] 95 mm[Hg] Not Available [facility] 3 00:26:41 Date Recorded Body mass index (BMI) Body height Oxygen saturation Oxygen saturation in Arterial blood by Pulse oximetry Heart rate Body temperature Body weight Systolic blood pressure Diastolic blood pressure Provider Name and Address Organization Details Last Updated DateTime 2 24.2 kg/m2 162.56 cm 98 % 98 % 72 /min 98.6 [degF] 88802.5 2 g 120 mm[Hg] 80 mm[Hg] Not Available [facility] 3 00:26:41 Date Recorded Body height Body mass index (BMI) Body weight Heart rate Body temperature Systolic blood pressure Diastolic blood pressure Provider Name and Address Organization Details Last Updated DateTime 3 162.56 cm 23.9 kg/m2 16361.7 8 g 77 /min 98.6 [degF] 137 mm[Hg] 85 mm[Hg] [facility] 3 11:51:13 Social History Question Answer Notes LastModified by Organizat ion Details LastModified Time Tobacco Smoking Status Former Smoker quit 22 years ago Not Available [facility] 07/02/2022 00:26:10 What Is Your Level Of Alcohol Consumption? None [id number] Information not available 07/02/2022 What Is Your Level Of Caffeine Consumption? Heavy Caffeine Pill 400 Mg/day [id number] Information not available 07/02/2022 In The 14 Days Before Symptom Onset, Have You Had Close Contact With A Laboratory-confir med COVID-19 While That Case Was Ill? No [id number].[id number] Information not available 07/02/2022 In The 14 Days Before Symptom Onset, Have You Had Close Contact With A Person Who Is Under Investigation For COVID-19 While That Person Was Ill? No [id number] Information not available 07/02/2022 What Type Of Diet Are You Following? REGULAR [id number].55357 [id number] Information not available 07/02/2022 What Is The Highest Grade Or Level Of School You Have Completed Or The Highest Degree You Have Received? [id number] [id number].[id number] Information not available 07/02/2022 How Many Days Of Moderate To Strenuous Exercise, Like A Brisk Walk, Did You Do In The Last 7 Days? 5 Walk [id number].65191 [id number] Information not available 07/02/2022 What Is Your Relationship Status? [id number] Information not available 07/02/2022 Do You Use Your Seat Belt Or Car Seat Routinely? Yes [id number] Information not available 07/02/2022 At What Age Did You Start Smoking Tobacco? 16 MIGRATION.71000 97006 Information not available 07/02/2022 Do You Feel Stressed (tense, Restless, Nervous, Or Anxious, Or Unable To Sleep At Night)? [id number] MIGRATION.35385 [id number] Information not available 07/02/2022 Have You Recently Traveled Abroad? No MIGRATION.83056 [id number] Information not available 07/02/2022 Do You Have Any Dietary Restrictions? No MIGRATION.51564 66592 Information not available 07/02/2022 Sex: Female Functional Status Question Answer Note LastModified by Organizat ion Details LastModified Time What is your exercise level? Moderate [id number] Information not available 07/02/2022 Mental Status None recorded. Family History Nothing Reported. Medical History Condition Response EYE PROBLEMS Y HEADACHES/MIGRAINES Y GERD/NAUSEA Y ANEMIA/BLOOD DISORDER Y DIZZINESS Y HYPOTHYROIDISM Y DEPRESSION (INCLUDING POST ) Y INSOMNIA Y Gynecological HistoryNo gynecological history recorded. Obstetrics History GPAL:G 0 P 0 0 0 0 Past Encounters Encounter ID Performer Location Encounter Start Date Encounter Closed Date Diagnosis/Indication Diagnosis SNOMED-CT Code Diagnosis ICD10 Code Diagnosis Note [id number] [facility] [address] [place] [address] 06/24/2021 00:00:00 06/24/2021 18:26:38 [id number] [facility] [address] [place] [address] 09/16/2021 00:00:00 09/16/2021 09:33:10 [id number] [facility] [address] [place] [address] 03/24/2022 00:00:00 03/24/2022 16:35:52 [id number] Nellie Manning MD [facility] [address] [place] [address] 01/14/2023 11:32:21 01/14/2023 12:30:56 Hypothyroidism 95625003 E03.9 FT4 low normal range- having fatigue, constipati on and low energy - will uptitrate tirosint to 50 mcg daily and add low dose liothyroni ne 5 mcg in afternoon. She was reminded to take her tirosint on empty stomach with glass of water and wait one hour to eat or have her coffee in morning and up to 4 hours if ever taking any heartburn or reflux medication s to help optimize absorption . Discussed paleo like diet with restrictio n of GMOs to help with energy and to optimize absorption of vitamins and minerals and reduce inflammati on. Refer to endocrinol ogy per patient request. Primary hyperparathyroidism 46859958 E21.0 S/P parathyroi dectomy in May- having some fatigue- refer to [facility] endocrinol ogy for further monitoring as she had right parathyroi dectomy at [facility] this past winter. Spent up to 25 minutes preparing to see the patient (eg, review of tests), obtaining and/or reviewing separately obtained history, performing a medically appropriat e examinatio n and evaluation , counseling and educating the patient, ordering medication s, tests, along with documentin g clinical informatio n in the electronic health record, independen tly interpreti ng results and communicat ing results to the patient. Patient can be followed by PCP - she/he is aware of my resignatio n and last day of February 12. If needed his/her PCP can refer patient to another endocrinol ogist in the area. All questions /concerns answered and refills necessary at visit today. Health Concerns Section Related Observation LastModified by Organization Detai ls LastModified Time None Recorded Concern Status LastModified by Organization Details LastModified Time None Recorded Advance Directives Directive None Recorded Payers Encounter Date Sequence Insurance Name Policy Number Policy Vicente Covered Member ID Vicente Member ID Guarantor Name 01/14/[address] [facility] [id number] Elizabet Murry [id number] Elizabet Murry Notes Date Note Type Note Provider Name and Address Organization Details Recorded Time 3 text/html 47 yo female comes in for follow up in management of hypothyroidism and primary hyperparathyroidism last seen in Mar at that time we continued tirosint 25 mcg daily. we referred to ent to discuss parathyroidectomy. She ended up having parathyroidectomy in August- this was done at [facility] under [place] and had one gland removed on right side. She is still taking tirosint 25 mcg daily. She is having trouble focusing and constipation. She is still having fatigue in the mornings.labs from 08/23:TSH of 11.50 uIU/mlFT4 of 1.03 ng/dLglucose 89 mg/dLca 10.2 mg/dL Nellie Manning MD [address] [facility], [facility] [address], [place], [address], [place] [facility] [place] [facility] 01/14/2023 12:22:20 OBGyn Episode No OBEpisode recorded.
--- OUTSIDE RECORDS SUMMARY | 2024-07-17 14:36 | XMS_ITS | Referral Summary ---
Author Organization [facility] [address] Address [address] [place] [address] Care Team Providers Care Semiconductor Assembler Name Role Phone Joel Briggs MD Primary [...] ns:hypothyroidis m Take 25 mcg by mouth fur trapper before breakfast Active oxyCODONE (ROXICODONE) 5 mg [...] total) daily for 7 days. 42 tablet 3 Active flibanserin (Addyi) 100 mg tablet Take 1 tablet by mouth nightly Active hydrOXYzine (ATARAX) 10 mg tablet Take 1 tablet (10 mg total) by mouth bedtime Active traZODone (DESYREL) 50 mg tablet Take 1 tablet (50 mg total) by mouth nightly Active Active Problems Problem Noted Date Diagnosed Date Hypothyroidism 01/14/2023 Hyperparathyroidism 04/22/2022 Allergic rhinitis 11/26/2004 Social History Tobacco Use Types Packs/Day Years [...] on file Legal Sex Female 12:45 AM RN L AND D Gender Identity Not on file Sexual Orientation Not on file Last Filed Vital Signs Vital Sign Reading Time Taken Comments Blood Pressure 145/74 05/12/2022 4:40 PM RN L AND D Pulse 78 05/12/2022 4:40 PM RN L AND D Temperature 36.1 C (97 F) 05/12/2022 3:10 PM RN L AND D Respiratory Rate 11 05/12/2022 4:40 PM RN L AND D Oxygen Saturation 98% 05/12/2022 4:40 PM RN L AND D Inhaled Oxygen Concentration - - Weight 60.5 kg (133 lb 6.4 oz) 05/28/2022 9:17 A M RN L AND D Height 165.1 cm (5' 5 ) 05/12/2022 11:30 AM RN L AND D Body Mass Index 22.2 05/12/2022 11:30 AM RN L AND D Plan of Treatment Not on file Medical Devices Implanted Type Area Maintenance Shop Laborer Device Identifier Shelf Expiration Date Model / Serial / Lot [employer] Weck Horizon Ligate Triangulate Cross Section Wire Small Wide Latex Free [id number] Implanted:Qty: 2 on 05/12/2022 by Brennen Gordon MD at [facility] N/A: Neck [employer] Weck Horizon 6 Cartridge Ligate Triangulate Cross Section Heart [id number] Implanted:Qty: 2 on 05/12/2022 by Brennen Gordon MD at [facility] N/A: Neck [employer] Weck Horizon 6 Cartridge Ligate Triangulate Cross Section Heart [id number] Implanted:Qty: 1 on 05/12/2022 by Brennen Gordon MD at [facility] Medicine N/A: Neck [employer] Insurance CIG CIG[employer] Care Teams Semiconductor Assembler Relationship Specialty Start Date End Date Joel Briggs MD PCP - General Family Practice 05/28/22
--- OUTSIDE RECORDS SUMMARY | 2024-07-17 14:36 | XMS_ITS | Clinical Summary ---
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 Gender Identity Not on file Sexual Orientation Not on file Plan of Treatment Health Maintenance Due Date Last Done Comments Cervical Cancer Screening Pa p Smear (Age 30 to 64) Every 3 Years 1976 Colorectal Cancer Screening Colonoscopy (10 Years) 1976 Annual Physical 07/18/1979 Hepatitis C 1994 DTaP, Tdap and Td Vaccines ( 1 - Tdap) 07/18/1995 Hepatitis B Vaccines (1 of 3 - 19+ 3-dose series) 07/18/1995 Cervical Cancer Screening Pa p with HPV Testing (Age 30 to 64) Every 5 Years 2006 Cervical Cancer Screening with HPV 2006 Mammogram Screening 2016 COVID-19 Vaccine (2023-2 5 season) 2024 Influenza Adult (#1) 2024 Meningococcal B Vaccine Aged Out No l onger eligible based on patient's age to complete this topic Meningococcal Vaccine Aged Out No debbie lesli eligible based on patient's age to complete this topic Pneumococcal Vaccine: Pediat rics (0 to 5 Years) and At-Risk Patients (6 to 64 Years) Aged Out No longer eligible b ased on patient's age to complete this topic RSV Immunizations Under 20 Months Aged Out No longer eligible based on patient's age to complete this topic
--- OUTSIDE RECORDS SUMMARY | 2024-07-17 14:37 | XMS_ITS | Continuity of Care Document ---
Author Organization [facility] Address [address] [place] [address] Phone Care Team Providers Care Automation Architect Name Role Phone Ashli Cruz MD Unavailable Unavailable Allergies, Adverse Reactions, Alerts Substance Reaction Status Criticality No Known Drug Allergies Other Active No I nformation Advance Directives Directive Yes / No Effective Date File Name No Information Encounters Encounter Description Practice Location Reason(s) For Visit Diagnoses Date Provider Providers Copied on Encounter [facility], [address], [place], [place], [address], tel:[phone] [facility] Internal Medicine No Information Apr-2 [address], [place] [address], [place], [place], [address], . tel:[phone] [facility], [address], [place], [place], [address], tel:[phone] [facility] STREP SORE THROATACUTE URI NOSTHROAT PAIN Apr-2 6-200 7 Anthony [address]ius[address], [address] [facility], [place], [place], [address], [place]. tel:[phone] [facility], [address], [place], [place], [address], tel:[phone] [facility] ACUTE PHARYNGITIS Apr-0 5-200 7 Anthony Cornelius. [address], [address], [place], [place], [address], . tel:[phone] [facility], [address], [place], [place], [address], tel:[phone] [facility] OTITIS MEDIA NOS Sep-0 1-200 6 Anthony Cornelius. [address], [address], [place], [place], [address], [place]. tel:[phone] [facility], [address], [place], [place], [address], [place] tel:[phone] [facility] SCREENING-PULMO NARY TBMED EXAM NEC-ADMIN PURP 3200 6 Anthony Cornelius. [address], [address], [place], [place], [address], [place]. tel:[phone] [facility], [address], [place], [place], [address], [place] tel:[phone] [facility] ALLERGIC RHINITIS NOSACUTE CONJUNCTIVITIS NOS 5 Conversion Doctor. [facility] [place], [address], [place]. [facility], [address], [place], [place], [address], [place] tel:[phone] [facility] ROUTINE MEDICAL EXAM Oct- 2200 4 Conversion Doctor. [address] [place] [address], [address], [place]. [facility], [address], [place], [place], [address], [place] tel:[phone] [facility] MALAISE AND FATIGUE NEC 2 2200 4 Anthony Cornelius. [address], [address], [place], [place], [address], [place]. tel:[phone] [facility], [address], [place], [place], [address], [place] tel:[phone] [facility] LUMP OR MASS IN BREAST Oct-0 8200 4 Lisandro Goncalves. [address] [facility], 4th Floor, [place], [place], [address], [place]. tel:[phone] [facility], [address], [place], [place], [address], [place] tel:[phone] [facility] HISTORY OF TOBACCO USETRACHEA/BRON CHUS DIS NEC 4-200 1 Dixie Francis. [address], [address], [place], [address]. tel:[phone] Family History Family Member Type Diagnosis Age [...]
--- OUTSIDE RECORDS SUMMARY | 2024-07-17 14:37 | XMS_ITS | Patient Health Record ---
Author Organization [facility] Address [address] [place] [address] Care Team Providers Care Flight Service Specialist Name Role Phone Brigitte MAURICE, Joel Primary Care Provider Unavailable Elissa Lantigua Unavailable [phone] Migration, Provider Unavailable Unavailable Allergies No Known Allergies Reason For Referral No Information Medications Medication SIG (Take, Route, Frequency, Duration) Notes Start Date End Date Status ProAir HFA 108 (90 Base) MCG/ACT Inhalation 08/26/2023 Active Liothyronine Sodium 5 MCG Oral 08/26/2023 Active Vraylar 3 mg take one capsule daily Oral bedtime for 90 days Active Tirosint 50 mcg Oral 08/26/2023 Act uzma DULoxetine HCl 60 MG 1 capsule Oral Once a day for 90 days Active Sucralfate 1 GM Oral 08/26/2023 Not -Taking Vraylar 3 mg take one capsule daily Oral bedtime for 90 days Active Minipress 1 mg Oral 08/26/2023 Not- Taking buPROPion HCl ER (XL) 300 MG 1 tablet every morning Oral Once a day for 90 days Active traZODone HCl 100 MG 1 tablet at bedtime Oral Once a day for 90 days Active Progesterone Micronized 100 MG Oral 08/26/2023 Active buPROPion HCl ER (XL) 300 MG 1 tablet every morning Oral Once a day for 90 days Active 16.2-0.1037 -0.0194 mg Oral *Pick strength-form from [facility] for eRX* 08/26/2023 Not-Taking Prazosin HCl 1 MG Oral 08/26/2023 N ot-Taking hydrOXYzine HCl 25 MG 1 tablet Oral three times a day for 90 days Active Xifaxan 550 MG Oral 08/26/2023 Not- Taking Ergocalciferol 1.25 MG (04670 UT) Oral 08/26/2023 Not-Taking traZODone HCl 100 MG 1 tablet at bedtime Oral Once a day for 90 days Active Levothyroxine Sodium 25 MCG Oral 08/26/2023 Not-Taking Cyclobenzaprine HCl 10 MG Oral 08/26/2023 Not-Taking Cyanocobalamin 1000 MCG/ML Injection 08/26/2023 Not-Taking Dicyclomine HCl 10 MG Oral 08/26/2023 Not-Taking SUMAtriptan Succinate 50 MG Oral 08/26/2023 Not-Taking busPIRone HCl 5 MG Oral 08/26/2023 Not-Taking busPIRone HCl 10 MG 1 tablet Orally three times a day for 90 days d/c 15 mg dose 05/05/2024 Active Diclofenac Sodium 1% Transdermal 08/26/2023 Active Proctozone-HC 2.5 % Rectal 08/26/2023 Not-Taking Qvar RediHaler 80 MCG/ACT Inhalation 08/26/2023 Active Tranexamic Acid 650 MG Oral 08/26/2023 Not-Taking HYDROcodone-Acetamino phen 5-325 MG Oral 08/26/2023 Not-Taking DODEX 1,000 MCG/ML INJECTION SOLUTION *Reorder from [facility] for eRx and Interaction Alerts* 08/26/2023 Not-Taking SOLIFENACIN 5 MG TABLET *Reorder from Goose[employer] for eRx and Interaction Alerts* 08/26/2023 Not-Taking Amitiza 8 MCG Oral 08/26/2023 Not-T aking Immunizations Vaccine Route Administration Date Status Comme nts Influenza, unspecified formulation Unknown 07/01/2022 A dministered Social History Tobacco Use: Social History Observation [...] Problem Bipolar affective disorder, currently depressed, mild (049374629) Bipolar disorder, current episode depressed, mild (F31.31) 04/25/202 4 Active confirmed Problem Generalized anxiety disorder (61716106) Generalized anxiety disorder (F41.1) 4 Active confirmed Problem Posttraumatic stress disorder (09413094) Post-traumatic stress disorder, chronic (F43.12) 4 Active confirmed Problem Insomnia disorder 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 disorder (06568780) Insomnia due to other mental disorder (F51.05) 3 Active confirmed Problem Long-term current use of drug therapy (209493218) Other terminal worker (current) drug therapy (Z79.899) 4 Active confirmed Problem 246454982 Marijuana use (F12.90) Active confirmed Vital Signs Heart Rate 84 /min 05/05/2024 Height-cm 165.10 cm 05/05/2024 Blood pressure diastolic 83 mm Hg 05/05/2024 Weight-kg 75.02 kg 05/05/2024 Height 65.00 in 05/05/2024 Blood pressure systolic 124 mm Hg 05/05/2024 Weight 165.4 lbs 05/05/2024 BMI 27.52 kg/m2 05/05/2024 Encounters Encounter Location Date Provider Diagnosis [facility] [address] [place] [address] 07/23/2023 Elissa Lantigua Eating disorder, unspecified F50.9 ; Post-traumatic stress disorder, chronic F43.12 ; Major depressive disorder, recurrent, moderate F33.1 ; Other custodial (current) drug therapy Z79.899 ; Bipolar disorder, current episode depressed, mild F31.31 ; Vitamin D deficiency, unspecified E55.9 ; Hypothyroidism, unspecified E03.9 ; Migraine, unspecified, not intractable, without status migrainosus G43.909 ; Other problems related to lifestyle Z72.89 ; Gastro-esophageal reflux disease without esophagitis K21.9 ; Primary insomnia F51.01 ; Vitamin B deficiency, unspecified E53.9 ; Anemia, unspecified D64.9 ; Generalized anxiety disorder F41.1 and Unspecified osteoarthritis, unspecified site M19.90 [facility] [address] [place] [address] 08/26/2023 Elissa Lantigua Hypothyroidism, unspecified E03.9 ; Major depressive disorder, recurrent, moderate F33.1 ; Eating disorder, unspecified F50.9 ; Other terminal worker (current) drug therapy Z79.899 ; Gastro-esophageal reflux disease without esophagitis K21.9 ; Vitamin D deficiency, unspecified E55.9 ; Generalized anxiety disorder F41.1 ; Anemia, unspecified D64.9 ; Primary insomnia F51.01 ; Vitamin B deficiency, unspecified E53.9 ; Bipolar disorder, current episode depressed, mild F31.31 ; Unspecified osteoarthritis, unspecified site M19.90 and Migraine, unspecified, not intractable, without status migrainosus G43.909 [facility] [place] [address] [facility] [address] [address] 10/14/2023 Elissa Lantigua [place] [address] [facility] [address] [address] 01/28/2024 Elissa Lantigua [address] [address] 02/04/2024 Elissa Lantigua Bipolar disorder, current episode depressed, mild F31.31 ; Generalized anxiety disorder F41.1 ; Post-traumatic stress disorder, chronic F43.12 ; Insomnia due to other mental disorder F51.05 ; Other terminal worker (current) drug therapy Z79.899 and Marijuana use F12.90 [facility] [place] [address] [facility] [address] [address] 05/05/2024 Elissa Lantigua Bipolar disorder, current episode depressed, mild F31.31 ; Generalized anxiety disorder F41.1 ; Post-traumatic stress disorder, chronic F43.12 ; Insomnia due to other mental disorder F51.05 ; Other custodial (current) drug therapy Z79.899 and Marijuana use F12.90 [place] [address] [facility] [address] [address] 09/02/2023 Provider [facility] [address] [address] 09/18/2023 Provider Migration [address] [address] 09/19/2023 Provider Migration Assessments Encounter Date Diagnosis (ICD Code) Assessment Notes Treatment Notes Treatment Clinical Notes Section Notes 07/23/2023 Anemia, unspecified (ICD-10 - D64.9) 07/23/2023 Hypothyroidism , unspecified (ICD-10 - E03.9) 07/23/2023 Vitamin B deficiency, unspecified (ICD-10 - E53.9) 07/23/2023 Vitamin D deficiency, unspecified (ICD-10 - E55.9) 07/23/2023 Bipolar disorder, current episode depressed, mild (ICD-10 - F31.31) 07/23/2023 Major depressive disorder, recurrent, moderate (ICD-10 - F33.1) 07/23/2023 Generalized anxiety disorder (ICD-10 - F41.1) 07/23/2023 Post-traumatic stress disorder, chronic (ICD-10 - F43.12) 07/23/2023 Eating disorder, unspecified (ICD-10 - F50.9) 07/23/2023 Primary insomnia (ICD-10 - F51.01) 07/23/2023 Migraine, unspecified, not intractable, without status migrainosus (ICD-10 - G43.909) 07/23/2023 Gastro-esophag eal reflux disease without esophagitis (ICD-10 - K21.9) 07/23/2023 Unspecified osteoarthritis , unspecified site (ICD-10 - M19.90) 07/23/2023 Other problems related to lifestyle (ICD-10 - Z72.89) 07/23/2023 Other terminal worker (current) drug therapy (ICD-10 - Z79.899) 08/26/2023 Anemia, unspecified (ICD-10 - D64.9) 08/26/2023 Hypothyroidism , unspecified (ICD-10 - E03.9) 08/26/2023 Vitamin B deficiency, unspecified (ICD-10 - E53.9) 08/26/2023 Vitamin D deficiency, unspecified (ICD-10 - E55.9) 08/26/2023 Bipolar disorder, current episode depressed, mild (ICD-10 - F31.31) 08/26/2023 Major depressive disorder, recurrent, moderate (ICD-10 - F33.1) 08/26/2023 Generalized anxiety disorder (ICD-10 - F41.1) 08/26/2023 Eating disorder, unspecified (ICD-10 - F50.9) 08/26/2023 Primary insomnia (ICD-10 - F51.01) 08/26/2023 Migraine, unspecified, not intractable, without status migrainosus (ICD-10 - G43.909) 08/26/2023 Gastro-esophag eal reflux disease without esophagitis (ICD-10 - K21.9) 08/26/2023 Unspecified osteoarthritis , unspecified site (ICD-10 - M19.90) 08/26/2023 Other terminal worker (current) drug therapy (ICD-10 - Z79.899) 05/05/2024 Bipolar disorder, current episode depressed, mild [...] of psychosis. http_s://www.nimh. nih.gov/health/top ics/mental-health- medications http_s://www.nii. org/Npdqn-Tveucd-S llness/Treatments/ Hbtorv-Ofrsid-Pmns cations Cannabis/marijuana information: http_s://bubba.nih. gov/publications/d rugfacts/cannabis- marijuana http_s://www.[employer]/cannabi n-uns-tuheydat-mar ijuana-adhd/ http_s://www.nii. org/Hwcgf-Imzggw-Z llness/Mental-Heal th-Conditions http_s://psychcent [employer].com/depression /qam-ogfsjsfsf-zld vqikc-ke-whtihhnpt n#treatments http__s://www.[facility] .nih.gov/health/to pics/mental-health -medications http__s://www.nii .org/About-Mental- Illness/Treatments /Sjxalr-Axuowa-Tvf ications educated on all medications, benefits, side [...] neurotoxicity and interactions with prescribed medications. 02/04/2024 Bipolar disorder, current episode depressed, mild [...] of psychosis. http_s://www.nimh. nih.gov/health/top ics/mental-health- medications http_s://www.nii. org/Pgfua-Vndsya-A llness/Treatments/ Qrtkni-Fhrgsc-Eafb cations Recommend decrease/stop cannabis use as it may be negatively impacting mood, motivation, anxiety, sleep, focus; can also contribute to development of psychosis Cannabis/marijuana information: http_s://bubba.nih. gov/publications/d rugfacts/cannabis- marijuana http_s://www.[employer]/cannabi c-iru-hmvnuvnm-mar ijuana-adhd/ http_s://www.nii. org/Mhsny-Gfgaxw-D llness/Mental-Heal th-Conditions http_s://psychcent [employer].com/depression /pxu-ufufwuxba-crr uhtyz-et-erngqhzps n#treatments http__s://www.nimh .nih.gov/health/to pics/mental-health -medications http__s://www.nii .org/About-Mental- Illness/Treatments /Khkmpd-Ivbfkp-Kra ications educated on all medications, benefits, side [...] of psychosis. http_s://www.nimh. nih.gov/health/top ics/mental-health- medications http_s://www.nii. org/Dsdda-Tysejc-E llness/Treatments/ Ladgjb-Xqtcce-Dbdu cations Recommend decrease/stop cannabis use as it may be negatively impacting mood, motivation, anxiety, sleep, focus; can also contribute to development of psychosis Cannabis/marijuana information: http_s://bubba.nih. gov/publications/d rugfacts/cannabis- marijuana http_s://www.[employer]/cannabi h-kde-pxcaitjq-mar ijuana-adhd/ http_s://www.nii. org/Euhcn-Rkbcfj-S llness/Mental-Heal th-Conditions http_s://psychVPEP.com/depression /ctl-wsejsgdut-hch vadwq-qt-rakusfnpj n#treatments http__s://www.nimh .nih.gov/health/to pics/mental-health -medications http__s://www.nii .org/About-Mental- Illness/Treatments /Veuxie-Ipyzhd-Usx ications educated on all medications, benefits, side [...] of psychosis. http_s://www.nimh. nih.gov/health/top ics/mental-health- medications http_s://www.nii. org/Tyzye-Jhbird-U llness/Treatments/ Abjyfr-Tqzdep-Ckjl cations Recommend decrease/stop cannabis use as it may be negatively impacting mood, motivation, anxiety, sleep, focus; can also contribute to development of psychosis Cannabis/marijuana information: http_s://bubba.nih. gov/publications/d rugfacts/cannabis- marijuana http_s://www.[employer]/cannabi n-bbu-coniiedf-mar ijuana-adhd/ http_s://www.nii. org/Cggnx-Tztxww-Q llness/Mental-Heal th-Conditions http_s://psych[employer]P.com/depression /zqp-bqwwckcjh-qjg firji-md-yisvocevw n#treatments http__s://www.nimh .nih.gov/health/to pics/mental-health -medications http__s://www.nii .org/About-Mental- Illness/Treatments /Prsoyy-Gaqock-Efq ications educated on all medications, benefits, side [...] of psychosis. http_s://www.nimh. nih.gov/health/top ics/mental-health- medications http_s://www.nii. org/Rntkc-Wgimxe-K llness/Treatments/ Csndbv-Ugneka-Gmmp cations Cannabis/marijuana information: http_s://bubba.nih. gov/publications/d rugfacts/cannabis- marijuana http_s://www.[employer]/cannabi i-aea-wnutxufe-mar ijuana-adhd/ http_s://www.nii. org/Lfmwf-Kaobfd-Z llness/Mental-Heal th-Conditions http_s://psychcent [employer].com/depression /bfv-gjzrfdcvm-phz maolh-he-ezqxgsyfn n#treatments http__s://www.[facility] .nih.gov/health/to pics/mental-health -medications http__s://www.nii .org/About-Mental- Illness/Treatments /Jpcfjm-Gcxnnp-Xjk ications educated on all medications, benefits, side [...] of psychosis. http_s://www.nimh. nih.gov/health/top ics/mental-health- medications http_s://www.nii. org/Ujirz-Midpqw-C llness/Treatments/ Tvmtlt-Xffxos-Lkrn cations Cannabis/marijuana information: http_s://bubba.nih. gov/publications/d rugfacts/cannabis- marijuana http_s://www.[employer]/cannabi c-kqs-apjcijmj-mar ijuana-adhd/ http_s://www.nii. org/Udwnv-Dcolpx-O llness/Mental-Heal th-Conditions http_s://psychVPEP.com/depression /ixz-mfllwwxyv-wjx dmwwn-la-ewrjiniqm n#treatments http__s://www.nimh .nih.gov/health/to pics/mental-health -medications http__s://www.nii .org/About-Mental- Illness/Treatments /Twfhmi-Wqbpjc-Icj ications educated on all medications, benefits, side [...] of psychosis. http_s://www.nimh. nih.gov/health/top ics/mental-health- medications http_s://www.nii. org/Qbedi-Kesgqa-O llness/Treatments/ Kuvlou-Hbbzja-Hexx cations Recommend decrease/stop cannabis use as it may be negatively impacting mood, motivation, anxiety, sleep, focus; can also contribute to development of psychosis Cannabis/marijuana information: http_s://bubba.nih. gov/publications/d rugfacts/cannabis- marijuana http_s://www.[employer]/cannabi v-fgr-ryrjpmdl-mar ijuana-adhd/ http_s://www.nii. org/Xlgof-Qocsfl-W llness/Mental-Heal th-Conditions http_s://psychVPEP.com/depression /ims-jkaubrflu-kpu siycv-jp-uaexkqgtd n#treatments http__s://www.nimh .nih.gov/health/to pics/mental-health -medications http__s://www.nii .org/About-Mental- Illness/Treatments /Dznjho-Ulhejo-Zqn ications educated on all medications, benefits, side [...] and interactions with prescribed medications. 02/04/2024 Other terminal worker (current) drug therapy (ICD-10 - Z79.899) presently [...] of psychosis. http_s://www.nimh. nih.gov/health/top ics/mental-health- medications http_s://www.nii. org/Qqnot-Ccigqt-C llness/Treatments/ Jjydau-Fwbkdg-Ioyj cations Recommend decrease/stop cannabis use as it may be negatively impacting mood, motivation, anxiety, sleep, focus; can also contribute to development of psychosis Cannabis/marijuana information: http_s://bubba.nih. gov/publications/d rugfacts/cannabis- marijuana http_s://www.[employer]/cannabi s-ait-vzddtnnw-mar ijuana-adhd/ http_s://www.nii. org/Pyjcj-Fuatbq-F llness/Mental-Heal th-Conditions http_s://psychVPEP.com/depression /sqv-ehavyryyt-hhi iqbwd-ko-mbpbivpdb n#treatments http__s://www.nim .nih.gov/health/to pics/mental-health -medications http__s://www.nii .org/About-Mental- Illness/Treatments /Axipfy-Cmylxo-Zlt ications educated on all medications, benefits, side [...] of psychosis. http_s://www.nimh. nih.gov/health/top ics/mental-health- medications http_s://www.nii. org/Mkgzb-Mbfhwu-J llness/Treatments/ Xcyxts-Duxxzh-Rusx cations Cannabis/marijuana information: http_s://bubba.nih. gov/publications/d rugfacts/cannabis- marijuana http_s://www.[employer]/cannabi b-eiw-uhbckfhk-mar ijuana-adhd/ http_s://www.nii. org/Icopx-Edqtqy-N llness/Mental-Heal th-Conditions http_s://psychcent [employer].com/depression /klw-wlxqkvhxk-tpd mwprp-iw-rjwprvsol n#treatments http__s://www.[facility] .nih.gov/health/to pics/mental-health -medications http__s://www.nii .org/About-Mental- Illness/Treatments /Zwqjwa-Aynath-Zuy ications educated on all medications, benefits, side [...] and interactions with prescribed medications. 05/05/2024 Other custodial (current) drug therapy (ICD-10 - Z79.899) presently [...] of psychosis. http_s://www.nimh. nih.gov/health/top ics/mental-health- medications http_s://www.nii. org/Sdaiy-Athzbw-Y llness/Treatments/ Perebv-Ikyvvk-Khem cations Cannabis/marijuana information: http_s://bubba.nih. gov/publications/d rugfacts/cannabis- marijuana http_s://www.[employer]/cannabi y-yfj-jwlfgiot-mar ijuana-adhd/ http_s://www.nii. org/Qnqzo-Zfsjbe-U llness/Mental-Heal th-Conditions http_s://psychcent [employer].com/depression /bpq-aunmzwqjx-nqm czbbr-ni-lvekencsr n#treatments http__s://www.nimh .nih.gov/health/to pics/mental-health -medications http__s://www.nii .org/About-Mental- Illness/Treatments /Lygpem-Miuatu-Kzo ications educated on all medications, benefits, side [...] of psychosis. http_s://www.nimh. nih.gov/health/top ics/mental-health- medications http_s://www.nii. org/Qhjhg-Jytdvv-V llness/Treatments/ Xsnidh-Ulifcl-Okzs cations Recommend decrease/stop cannabis use as it may be negatively impacting mood, motivation, anxiety, sleep, focus; can also contribute to development of psychosis Cannabis/marijuana information: http_s://bubba.nih. gov/publications/d rugfacts/cannabis- marijuana http_s://www.[employer]/cannabi a-vdc-zmahuxea-mar ijuana-adhd/ http_s://www.nii. org/Cjjny-Cjxaux-G llness/Mental-Heal th-Conditions http_s://[employer].com/depression /zhz-ynhhblqbb-pmq zjhbd-im-frwdlqsrp n#treatments http__s://www.nimh .nih.gov/health/to pics/mental-health -medications http__s://www.nii .org/About-Mental- Illness/Treatments /Xrujmg-Tqnpcs-Qra ications educated on all medications, benefits, side [...] can also contribute to development of psychosis. http_s://www.[facility]. nih.gov/health/top ics/mental-health- medications http_s://www.nii. org/Jewgn-Uglzra-W llness/Treatments/ Wrkqdt-Tkqyny-Amzm cations Cannabis/marijuana information: http_s://bubba.nih. gov/publications/d rugfacts/cannabis- marijuana http_s://www.[employer]/cannabi h-rky-yzckbbvj-mar ijuana-adhd/ http_s://www.nii. org/Jkqko-Fkovri-N llness/Mental-Heal th-Conditions http_s://psychVPEP.com/depression /qti-tneqpgxsx-iyq prdbx-kp-kbcxvxhpy n#treatments http__s://www.nimh .nih.gov/health/to pics/mental-health -medications http__s://www.nii .org/About-Mental- Illness/Treatments /Ulialx-Lhcmpt-Bwk ications educated on all medications, benefits, side [...] of psychosis. http_s://www.nimh. nih.gov/health/top ics/mental-health- medications http_s://www.nii. org/Vlngo-Uvgbgp-X llness/Treatments/ Sjemmo-Otamyo-Acic cations Recommend decrease/stop cannabis use as it may be negatively impacting mood, motivation, anxiety, sleep, focus; can also contribute to development of psychosis Cannabis/marijuana information: http_s://bubba.nih. gov/publications/d rugfacts/cannabis- marijuana http_s://www.[employer]/cannabi f-fxm-xcfwnlcg-mar ijuana-adhd/ http_s://www.nii. org/Ippbg-Esejmi-M llness/Mental-Heal th-Conditions http_s://psychVPEP.com/depression /oti-eiutshekn-amt lzmyr-zy-odghzkirx n#treatments http__s://www.nimh .nih.gov/health/to pics/mental-health -medications http__s://www.nii .org/About-Mental- Illness/Treatments /Kmriol-Wajqsc-Hit ications educated on all medications, benefits, side [...] interactions with prescribed medications. Plan Of Treatment Next Appt Details Provider Name:Elissa Lantigua , 08/04/2024 04:15:00 PM, [address], [facility] [address], [place], [address], Insurance Providers Payer Name Payer Address Payer Phone Subscriber Number Group Number Insured Name Patient Relationship to Insured Coverage Start Date [facility]age End Date [facility] [address] [place] [address] [id number] KATERIN PAYNE Spouse - patient is the spouse of the insured Medical (General) History Medical History History ICD Code Problems: Akathisia Chronic post-traumatic stress disorder Dissociative disorder Eating disorder Electronic cigarette user Generalized anxiety disorder Insomnia disorder related to another men stacy disorder Long-term drug therapy Mild recurrent major depression Moderate recurrent major depression Primary insomnia Severe recurrent major depression withou t psychotic features Vitamin D deficiency , Surgical History Surgery Date(Month/Year) Cosmetic surgery 05/03/2013 Hysterectomy/revise vagina (13120) 09/02
== END 2024-07-17 12:48 | disposition home or self-care (01) ==
PROVIDERS: Emergency Provider Nurse Practitioner; PCP Family Medicine
DX: R35.0 Frequency of micturition (principal); R39.15 Urgency of urination; R30.0 Dysuria; Z87.891 Personal history of nicotine dependence; E78.5 Hyperlipidemia, unspecified; K21.9 Gastro-esophageal reflux disease without esophagitis; J45.909 Unspecified asthma, uncomplicated; Z90.89 Acquired absence of other organs
CPT/HCPCS: 81003; 87086; 99213; G0463